=== PATIENT | female | born 1960 | race Caucasian/White ===

== ENCOUNTER 2020-08-08 10:45 | Outpatient (REF) | payer OTHER, SELFPAY ==
--- NOTE | 2020-08-08 10:53 | XR_ITS ---
EXAMINATION: XR SINUSES CLINICAL INFORMATION: Sinusitis COMPARISON: None TECHNIQUE: 4 views of the paranasal sinuses FINDINGS: The paranasal sinuses appear aerated without evidence of significant mucosal thickening or air-fluid levels. No bony destruction is seen. IMPRESSION: No evidence of acute sinusitis.
== END 2020-08-08 10:46 | disposition home or self-care (01) ==
LOC: HO.XRAY 10:45
PROVIDERS: PCP Physician Assistant; Visit Provider Otolaryngology
DX: J32.9 Chronic sinusitis, unspecified (principal)
CPT/HCPCS: 70220

== ENCOUNTER 2020-12-08 08:29 | Outpatient (REF) | payer OTHER, SELFPAY ==
[2020-12-08 10:29] LABS: Hematocrit 39.5 % (37-47); Hemoglobin 12.8 g/dl (12.0-16.0); Mean Corpuscular HGB Conc 32.4 g/dl (31.0-35.0); Mean Corpuscular Volume 89.4 fL (80-98); Mean Platelet Volume 10.6 fL (9.4-12.3); Platelet Count 259 X10*3/uL (160-400); Red Blood Count 4.42 X10*6/uL (4.20-5.50); Red Cell Distribution Width 12.9 % (11.0-16.0); White Blood Count 3.1 X10*3/uL (4.8-10.8)
[2020-12-08 11:05] LABS: Alanine Aminotransferase 23 U/L (0-31); Albumin Level 4.4 g/dL (3.5-5.0); Alkaline Phosphatase 78 U/L (39-117); Anion Gap 13 (12-20); Aspartate Amino Transferase 20 U/L (5-31); Bilirubin Total 0.8 mg/dL (0.0-1.0); Blood Urea Nitrogen 21 mg/dL (9-16); Calcium 9.4 mg/dL (8.4-10.2); Carbon Dioxide 28 mmol/L (22-29); Chloride 103 mmol/L (96-108); Cholesterol 270 mg/dL; Estimated Glomerular Filt Rate > 60; Glucose Fasting 79 mg/dL (60-99); HDL Cholesterol 90 mg/dL; LDL Cholesterol Calculated 168 mg/dl; Potassium 4.2 mmol/L (3.3-5.1); Sodium 140 mmol/L (135-145); Total Protein 6.6 g/dL (6.5-8.0); Triglycerides 61 mg/dL
[2020-12-08 11:12] LABS: TSH reflex Free T4 1.35 uIU/mL (0.32-4.0)
== END 2020-12-08 08:30 | disposition home or self-care (01) ==
LOC: HO.WFDLDS 08:29
PROVIDERS: Visit Provider Physician Assistant
DX: I10 Essential (primary) hypertension (principal); F33.1 Major depressive disorder, recurrent, moderate
CPT/HCPCS: 36415; 80053; 80061; 84443; 85027

== ENCOUNTER 2021-06-11 10:22 | Outpatient (REF) | payer OTHER, SELFPAY ==
[2021-06-11 13:30] LABS: Hematocrit 38.7 % (37-47); Hemoglobin 12.7 g/dl (12.0-16.0); Mean Corpuscular HGB Conc 32.8 g/dl (31.0-35.0); Mean Corpuscular Hemoglobin 29.1 pg (27.0-33.0); Mean Corpuscular Volume 88.6 fL (80-98); Mean Platelet Volume 10.3 fL (9.4-12.3); Platelet Count 263 X10*3/uL (160-400); Red Blood Count 4.37 X10*6/uL (4.20-5.50); Red Cell Distribution Width 12.5 % (11.0-16.0); White Blood Count 2.7 X10*3/uL (4.8-10.8)
[2021-06-11 13:55] LABS: Alanine Aminotransferase 24 U/L (0-31); Albumin Level 4.2 g/dL (3.5-5.0); Alkaline Phosphatase 71 U/L (39-117); Anion Gap 10 (12-20); Aspartate Amino Transferase 20 U/L (5-31); Bilirubin Total 1.3 mg/dL (0.0-1.0); Blood Urea Nitrogen 18 mg/dL (9-16); Calcium 9.5 mg/dL (8.4-10.2); Carbon Dioxide 29 mmol/L (22-29); Chloride 105 mmol/L (96-108); Cholesterol 222 mg/dL; Estimated Glomerular Filt Rate > 60; Glucose Fasting 89 mg/dL (60-99); HDL Cholesterol 71 mg/dL; LDL Cholesterol Calculated 141 mg/dl; Potassium 4.4 mmol/L (3.3-5.1); Sodium 140 mmol/L (135-145); Total Protein 6.3 g/dL (6.5-8.0); Triglycerides 51 mg/dL
== END 2021-06-11 10:23 | disposition home or self-care (01) ==
LOC: HO.WFDLDS 10:22
PROVIDERS: Visit Provider Physician Assistant
DX: E78.2 Mixed hyperlipidemia (principal); I10 Essential (primary) hypertension
CPT/HCPCS: 36415; 80053; 80061; 84443; 85027

== ENCOUNTER 2021-06-13 12:58 | Outpatient (REF) | payer OTHER, SELFPAY ==
[2021-06-13 18:58] LABS: Creatinine Urine 97.86 mg/dL; Microalbum/Creatinine Ratio Ur 11.2 ug/mg cr
== END 2021-06-13 12:59 | disposition home or self-care (01) ==
LOC: HO.WFDLDS 12:58
PROVIDERS: Visit Provider Physician Assistant
DX: I10 Essential (primary) hypertension (principal)
CPT/HCPCS: 82043

== ENCOUNTER 2021-07-06 10:15 | Outpatient (REF) | payer OTHER, SELFPAY ==
[2021-07-06 11:31] LABS: Hematocrit 39.3 % (37-47); Mean Corpuscular HGB Conc 33.1 g/dl (31.0-35.0); Mean Corpuscular Hemoglobin 29.5 pg (27.0-33.0); Mean Corpuscular Volume 89.1 fL (80-98); Mean Platelet Volume 10.8 fL (9.4-12.3); Platelet Count 254 X10*3/uL (160-400); Red Blood Count 4.41 X10*6/uL (4.20-5.50); Red Cell Distribution Width 12.7 % (11.0-16.0); White Blood Count 3.8 X10*3/uL (4.8-10.8)
== END 2021-07-06 10:16 | disposition home or self-care (01) ==
LOC: HO.WFDLDS 10:15
PROVIDERS: Visit Provider Physician Assistant
DX: D72.819 Decreased white blood cell count, unspecified (principal); I10 Essential (primary) hypertension
CPT/HCPCS: 36415; 85027

== ENCOUNTER 2021-11-06 14:16 | Outpatient (REF) | payer OTHER, SELFPAY ==
[2021-11-06 14:25] LABS: Appearance Urine CLEAR; Color Urine YELLOW; Glucose Urine UA NEG (NEG); Leukocyte Esterase Urine 1+ (NEG); Nitrite Urine NEG (NEG); Specific Gravity - Urine 1.015 (1.005-1.025); Urine Blood NEG (NEG); Urine Ketones NEG (NEG); Urine Protein NEG (NEG-TRACE)
[2021-11-06 14:36] LABS: RBC Urine 0 /HPF (0); Squamous Epithelial Cell Urine TRACE /LPF
[2021-11-06 14:37] LABS: Mucus Urine 1+ /LPF
== END 2021-11-06 14:17 | disposition home or self-care (01) ==
LOC: HO.LNP 14:16
PROVIDERS: Visit Provider Physician Assistant
DX: R30.0 Dysuria (principal)
CPT/HCPCS: 81001

== ENCOUNTER 2021-11-16 12:58 | Outpatient (REF) | payer OTHER, SELFPAY ==
[2021-11-16 13:50] LABS: Appearance Urine CLEAR; Color Urine YELLOW; Glucose Urine UA NEG (NEG); Leukocyte Esterase Urine 1+ (NEG); Nitrite Urine NEG (NEG); PH 5.5 (5.0-8.0); Specific Gravity - Urine 1.025 (1.005-1.025); UACC Culture Trigger YES; Urine Blood NEG (NEG); Urine Ketones NEG (NEG); Urine Protein NEG (NEG-TRACE)
[2021-11-16 14:31] LABS: Bacteria Urine TRACE /LPF; RBC Urine 0-2 /HPF (0); Squamous Epithelial Cell Urine 1+ /LPF; UACC CULT YES
== END 2021-11-16 12:59 | disposition home or self-care (01) ==
LOC: HO.WFDLDS 12:58
PROVIDERS: PCP Physician Assistant; Visit Provider Physician Assistant
DX: R30.0 Dysuria (principal)
CPT/HCPCS: 81001; 87086

== ENCOUNTER 2021-12-06 13:30 | Outpatient (REF) | payer OTHER, SELFPAY ==
--- NOTE | ~2021-12-06 | XR_ITS ---
EXAMINATION: XR CHEST CLINICAL INFORMATION: Cough. COMPARISON: None TECHNIQUE: 2 views of the chest were obtained. FINDINGS: The lungs are hyperinflated but clear of acute process. Heart size and pulmonary vascularity is normal. There is mild dextro scoliosis dorsal spine. XR/XR chest 2V IMPRESSION: Hyperinflated lungs without acute process
== END 2021-12-06 13:31 | disposition home or self-care (01) ==
LOC: HO.XRAY 13:30
PROVIDERS: PCP Physician Assistant; Visit Provider Physician Assistant
DX: R05.9 Cough, unspecified (principal)
CPT/HCPCS: 71046

== ENCOUNTER → 2021-12-17 08:58 | Outpatient (REF) | payer OTHER, SELFPAY ==
--- NOTE | 2021-12-17 09:01 | CA_ITS ---
Acquisition Time: 2021-12-17 09:08:44 Total Exercise Time: 00:09:30 Test Indications: PALPITATIONS SOB Medications: ALBUTEROL AMLODIPINE Protocol: LESTER Max HR: 160 BPM 101% of Pred: 157 BPM Max BP: 140/080 mmHG Max Work Load: 10.9 METS Exercise stress test with exercise 9 min 30 sec of Lester protocol, with mild sob, no chest discomfort, with isolated PAC, with normotensive response to exercise, without EKG changes meeting criteria for ischemia. Test reviewed with Dr Swann Referred By: Talha Lennon Overread By: MAURICE CHURCHILL
== END ==
LOC: HO.CARD 08:58
PROVIDERS: PCP Physician Assistant; Visit Provider Physician Assistant
DX: R06.02 Shortness of breath (principal); R00.2 Palpitations; Z79.899 Other long term (current) drug therapy
CPT/HCPCS: 93017

== ENCOUNTER 2022-01-07 08:06 | Outpatient (REF) | payer OTHER, SELFPAY ==
--- NOTE | 2022-01-07 13:46 | PFT_ITS ---
FLOWS: FEV1 138% of predicted at 2.95 L. FVC 135% of predicted at 3.77 L. FEV1 to FVC ratio of 0.78. No bronchodilator response. LUNG VOLUMES: Total lung capacity 136% of predicted at 6.19 L. Residual volume 122% of predicted at 2.32 L. Slow vital capacity 146% of predicted at 3.87 L. Expiratory reserve volume 233% of predicted at 1.54 L. Diffusion capacity is normal. IMPRESSION: No obstructive or restrictive ventilatory defect. No bronchodilator response. Increased total lung capacity suggests hyperinflation. Increased residual volume suggests air trapping. Jorge Alberto Meléndez MD AP/MODL / [id number]
== END 2022-01-07 08:07 | disposition home or self-care (01) ==
LOC: HO.RESP 08:06
PROVIDERS: PCP Physician Assistant; Visit Provider Physician Assistant
DX: R06.02 Shortness of breath (principal); R09.89 Other specified symptoms and signs involving the circulatory and respiratory systems
CPT/HCPCS: 94060; 94727; 94729

== ENCOUNTER 2022-01-28 12:43 | Outpatient (REF) | payer OTHER, SELFPAY ==
[2022-01-28 14:01] LABS: Appearance Urine CLEAR; Color Urine STRAW; Glucose Urine UA NEG (NEG); Leukocyte Esterase Urine 2+ (NEG); Nitrite Urine NEG (NEG); Specific Gravity - Urine <= 1.005 (1.005-1.025); UACC Culture Trigger YES; Urine Blood TRACE (NEG); Urine Ketones NEG (NEG); Urine Protein NEG (NEG-TRACE)
[2022-01-28 14:31] LABS: Bacteria Urine 1+ /LPF; Squamous Epithelial Cell Urine TRACE /LPF
== END 2022-01-28 12:44 | disposition home or self-care (01) ==
LOC: HO.WFDLNP 12:43
PROVIDERS: Visit Provider Physician Assistant
DX: R30.0 Dysuria (principal)
CPT/HCPCS: 81001; 81003; 87086; 87088; 87186

== ENCOUNTER 2022-03-06 09:25 | Outpatient (REF) | payer OTHER, SELFPAY ==
[2022-03-06 11:39] LABS: MANUAL DIFF FLAG NO
[2022-03-06 11:48] LABS: Basophils Percent Auto 1.1 % (0-2); Eosinophils Absolute Auto 0.1 X10*3/uL (0.0-0.4); Eosinophils Percent Auto 1.4 % (0-4); Hematocrit 40.1 % (37.0-47.0); Lymphocytes Absolute Auto 0.8 X10*3/uL (1.2-4.9); Lymphocytes Percent Auto 22.6 % (20-40); Mean Corpuscular HGB Conc 32.4 g/dl (31.0-35.0); Mean Corpuscular Hemoglobin 29.1 pg (27.0-33.0); Mean Corpuscular Volume 89.9 fL (80.0-98.0); Mean Platelet Volume 10.7 fL (9.4-12.3); Monocytes Absolute Auto 0.2 X10*3/uL (0.1-1.2); Monocytes Percent Auto 6.6 % (2-11); Neutrophils Absolute Auto 2.5 x10*3/uL (2.0-8.3); Neutrophils Percent Auto 68.3 % (45-73); Platelet Count 242 X10*3/uL (160-400); Red Blood Count 4.46 X10*6/uL (4.20-5.50); Red Cell Distribution Width 12.1 % (11.0-16.0); White Blood Count 3.6 X10*3/uL (4.8-10.8)
[2022-03-06 11:57] LABS: Alanine Aminotransferase 20 U/L (0-31); Albumin Level 4.3 g/dL (3.5-5.0); Alkaline Phosphatase 78 U/L (39-117); Aspartate Amino Transferase 17 U/L (5-31); Bilirubin Direct < 0.2 mg/dL (0.0-0.5); Bilirubin Total 0.4 mg/dL (0.0-1.0); Blood Urea Nitrogen 17 mg/dL (9-16); Estimated Glomerular Filt Rate > 60; Total Protein 6.4 g/dL (6.5-8.0)
== END 2022-03-06 09:26 | disposition home or self-care (01) ==
LOC: HO.WFDLDS 09:25
PROVIDERS: Visit Provider Physician Assistant
DX: G35 Multiple sclerosis (principal); Z79.899 Other long term (current) drug therapy
CPT/HCPCS: 36415; 80076; 82565; 84520; 85025

== ENCOUNTER 2022-12-02 09:42 | Outpatient (REF) | payer OTHER, SELFPAY ==
[2022-12-02 11:42] LABS: Hematocrit 39.8 % (37.0-47.0); Hemoglobin 12.9 g/dl (12.0-16.0); Mean Corpuscular HGB Conc 32.4 g/dl (31.0-35.0); Mean Corpuscular Hemoglobin 29.2 pg (27.0-33.0); Mean Platelet Volume 10.6 fL (9.4-12.3); Platelet Count 309 X10*3/uL (160-400); Red Blood Count 4.42 X10*6/uL (4.20-5.50); White Blood Count 6.3 X10*3/uL (4.8-10.8)
[2022-12-02 12:36] LABS: Alanine Aminotransferase 18 U/L (0-31); Albumin Level 4.6 g/dL (3.5-5.0); Alkaline Phosphatase 83 U/L (39-117); Anion Gap 15 (12-20); Aspartate Amino Transferase 17 U/L (5-31); Bilirubin Total 0.9 mg/dL (0.0-1.0); Blood Urea Nitrogen 18 mg/dL (9-16); Carbon Dioxide 27 mmol/L (22-29); Chloride 107 mmol/L (96-108); Cholesterol 257 mg/dL; Estimated Glomerular Filt Rate > 60; Glucose Fasting 90 mg/dL (60-99); HDL Cholesterol 101 mg/dL; LDL Cholesterol Calculated 144 mg/dl; Potassium 4.6 mmol/L (3.3-5.1); Sodium 144 mmol/L (135-145); TSH reflex Free T4 1.48 uIU/mL (0.32-4.0); Total Protein 6.8 g/dL (6.5-8.0); Triglycerides 64 mg/dL
[2022-12-02 14:14] LABS: Appearance Urine Clear; Color Urine Yellow; Glucose Urine UA Negative (Negative); Leukocyte Esterase Urine Small (1+) (Negative); Nitrite Urine Negative (Negative); PH 5.5 (5.0-9.0); UMIC TRIGGER UACC YES; Urine Blood Negative (Negative); Urine Ketones Negative (Negative); Urine Protein Negative (Neg-Trace)
[2022-12-02 14:31] LABS: Bacteria Urine None Seen (None Seen); Hyaline Casts Urine 0-2 /LPF (0-2); RBC Urine 0-2 /HPF (0-2); Squamous Epithelial Cell Urine 0-2 /HPF (0-2); UACC Culture Trigger YES; WBC Urine 0-5 /HPF (0-5)
== END 2022-12-02 09:43 | disposition home or self-care (01) ==
LOC: HO.WFDLDS 09:42
PROVIDERS: Nurse Practitioner Family; Visit Provider Physician Assistant
DX: I10 Essential (primary) hypertension (principal); E78.2 Mixed hyperlipidemia; R82.90 Unspecified abnormal findings in urine
CPT/HCPCS: 36415; 80053; 80061; 81001; 84443; 85027; 87086

== ENCOUNTER 2023-05-15 09:20 | Outpatient (AMB) | payer MEDICARE, SELFPAY ==
--- NOTE | 2023-05-15 09:21 | A.OFFPC_ITS ---
Intake Visit Reasons: f/u ADD Allergies bee pollen Allergy (Intermediate, Verified 05/15/23 09:42) hives, itching lisinopril Allergy (Unknown, Verified 05/15/23 09:42) Cough SEASONAL ALLERGIES Allergy (Mild, Uncoded 05/15/23 09:21) ITCHY EYES Medication List - Last Reconciled 05/15/23 by Talha Lennon PA-C albuterol sulfate 90 mcg/actuation 2 puffs inhalation Q6H PRN amlodipine 10 mg PO DAILY baclofen 10 mg PO BEDTIME 14 days cholecalciferol (vitamin D3) 25 mcg PO DAILY clonidine HCl 0.1 mg PO BID dextroamphetamine-amphetamine 5 mg 1 tab PO DAILY 30 days diphenhydramine HCl (Benadryl Allergy) 50 mg (2 x 25 mg) PO Q6H PRN 10 days epinephrine (EpiPen 2-Sherman) 0.3 mg (0.3 mL) IM Q10M PRN 30 days fluoxetine 40 mg PO DAILY gabapentin 100 mg PO TID meloxicam 15 mg PO DAILY 90 days ofatumumab (Kesimpta Pen) mg subcut omega 4-smp-anf-fish oil 100-160-1,000 mg caps PO pseudoephedrine HCl 60 mg PO Q6H PRN trazodone 100 mg PO DAILY 90 days Tobacco use date assessed: 02/13/23 Fall risk assessment: No Falls in past year Last assessed Fall Risk: 05/15/23 Dental Screening Dental Screen Date: 05/15/23 Did you have a dental visit in the last 12 months?: Yes Did you have a dental problem in the last 6 months where you did not have access to dental care?: No Was dental information given to patient?: Patient has dentist HPI f/u ADD HPI Details Patient is a 63-year-old female being evaluated today via telephone. Patient has a past medical history significant for major depressive disorder, anxiety, ADHD and ms. Concerns--> reports having a 2 month history of constipation. Reports it started with very loose stool and nausea for a week and transition into constipation. Has been able to take prune juice which has helped produce bowel movements. She reports she has not had a bowel movement in 4 days. She finds this ought and would like to be checked for colon cancer. Most recent colonoscopy done in 2018 that did find a polyp tubular adenoma needs repeat colonoscopy anyways. Otherwise denies any abdominal pain, night sweats her weight loss. Major depressive disorder: Has restarted SSRI therapy as she has been having more depressed mood which has drastically reduced her depressed mood. Use on fluoxetine 40 mg daily. ADD: She has been started on low-dose Adderall 5 mg to take as needed to help her attention and focus on her job tasks which has drastically improved her attention focus. She denies any side effects from the medication. [facility] Medical History Multiple sclerosis Surgical History History of cosmetic surgery History of tonsillectomy History of torn meniscus of right knee History of total knee replacement (TKR) History of wisdom tooth extraction Family History Father CAD (coronary artery disease) Mother Diabetes Hypertension Cancer Brother Multiple sclerosis Social History Housing: House Alcohol intake: current Alcohol intake frequency: a few times a month Patient Tobacco Use Status: Former Tobacco user Quit Date: 1989 Tobacco use type: Cigarette e-Cigarette/Vaping Use: Never Used Second Hand Smoke Exposure: No service: No Current occupational status: employed Current occupation: [employer]. Current occupational exposures/hazards: No Cognitive needs: No Hearing needs: No Vision needs: Yes (glasses ) Questionnaire PHQ-9 Over the last 2 weeks, how often have you been bothered by any of the following problems? 1. Little interest or pleasure in doing things: not at all 2. Feeling down, depressed, or hopeless: not at all 3. Trouble falling or staying asleep, or sleeping too much: not at all 4. Feeling tired or having little energy: not at all 5. Poor appetite or overeating: not at all 6. Feeling bad about yourself - or that you are a failure or have let yourself or your family down: not at all 7. Trouble concentrating on things, such as reading the newspaper or watching television: not at all 8. Moving or speaking so slowly that other people could have noticed. Or the o pposite - being so fidgety or restless that you have been moving around a lot more than usual: not at all 9. Thoughts that you would be better off or of hurting yourself in some way: not at all Total score: 0 Depression Screening Interpretation: Negative 55901 - PHQ-9 Billing: Yes Source: Developed by Drs. Sarkis Guerrero, Wayne Tang and colleagues, with an educational ivory from [employer]. Thrive Questionnaire Date Thrive assessed: 05/15/23 I am a: Patient What is your living situation today?: I have a steady place to live Within the past 12 months, did the food you bought not last and you didn't have the money to get more?: Never true Within the past 12 months, did you worry whether your food would run out before you got money to buy more?: Never true Do you have trouble paying for medicines?: No Do you have trouble getting transportation to medical appointments?: No Do you have trouble paying your heating and electricity bill?: No Do you have trouble taking care of your child, family member or friend?: No Do you have trouble with day-to-day activities such as bathing, preparing meals, shopping, managing finances, etc.?: No Are you currently unemployed and looking for a job?: No Are you interested in more education?: No Currently or been in a relationship where the following occur: no concerns reported AUDIT C Alcohol Use Questionnaire (AUDIT-C) 1. How often do you have a drink containing alcohol?: 2-4 times a month 2. How many drinks containing alcohol do you have on a typical day when you are drinking?: 1 or 2 3. How often do you have six or more drinks on one occasion?: Never Total Score: 2 RED-7 AMB Questionnaire RED-7 Date ERD - 7 assessed: 02/13/23 Source: Developed by Drs. Sarkis Guerrero, Wayne Tang and colleagues, with an educational ivory from [employer]. Review of Systems Const Denies headache(s) Eyes Denies loss of vision ENT Denies vertigo, Denies dizziness, Denies headache(s) and Denies sore throat Card Denies chest pain, Denies leg edema and Denies lightheadedness Resp Denies cough, Denies hemoptysis and Denies wheezing GI Denies abdominal pain, Denies melena, Reports constipation, Denies diarrhea and Denies vomiting Denies urinary frequency, Denies dysuria and Denies urinary urgency Musc Denies arthralgias, Denies joint swelling, Denies numbness and Denies tingling Neuro Denies behavioral changes, Denies vertigo, Denies dizziness, Denies headache(s), Denies loss of vision, Denies memory loss, Denies numbness and Denies tingling Psych Denies anxiety, Denies behavioral changes, Denies depression, Denies memory loss and Denies panic attacks Magnus/Lymph Denies easy bleeding and Denies easy bruising Aller/Immun Denies wheezing Physical exam (Primary Care) Tobacco/Smoking Status: Tobacco use Status Tobacco use date assessed 02/13/23 05/15/23 09:23 Patient Tobacco Use Status Former Tobacco user 05/15/23 09:23 Tobacco use type Cigarette 05/15/23 09:23 e-Cigarette/Vaping Use Never Used 05/15/23 09:23 PHQ-9: PHQ-9 Score PHQ-9: Total score 0 05/15/23 09:23 Depression Screening Interpretation: Negative Thrive Assessment: Date of Thrive Assessment Date Thrive assessed 05/15/23 05/15/23 09:23 Currently or been in a relationship where the following occur: no concerns reported Telehealth Telehealth Location of provider rendering services: practice address Location of patient: address on file Patient Identification confirmed using: Name, : Yes Telehealth method: voice only (Iphone) Patient verbally consented to treatment: Yes Patient verbally consented to billing insurance company: Yes Patient informed of any privacy concerns related to visit: Yes Minutes spent on Phone/Video with Pt.: 15 Assessment and Plan Assessment & Plan (1) ADD (attention deficit disorder): Code(s): F98.8 - Other specified behavioral and emotional disorders with onset usually occurring in childhood and adolescence Qualifiers: Hyperactivity presence: present Attention deficit-hyperactivity disorder type: predominantly inattentive Qualified Code(s): 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 She denies any side effect of sleeping issues or appetite suppressing. (2) MDD (major depressive disorder), recurrent episode, moderate: Code(s): F33.1 - Major depressive disorder, recurrent, moderate Plan: Again patient restarted SSRI therapy which has been very effective for her. (3) RED (generalized anxiety disorder): Code(s): F41.1 - Generalized anxiety disorder Plan: Has restarted SSRI therapy which has been effective for her. Started fluoxetine 40 mg. (4) Tubular adenoma of colon: Code(s): D12.6 - Benign neoplasm of colon, unspecified (5) Constipation: Code(s): K59.00 - Constipation, unspecified Qualifiers: Constipation type: chronic idiopathic constipation Qualified Code(s): K59.04 - Chronic idiopathic constipation Plan: Patient reporting constipation over the last 2 months, has been to treated with prune juice. She is concerned about cancer would like a colonoscopy. Last colonoscopy done at [place] in 2018 and polyp found. Is due for repeat colonoscopy thus refer to GI here in [place]. Advised on use of stool softener and probiotic. Orders: Orders XR abdomen 3V Today K59.04 - Chronic idiopathic constipation Referrals Gastroenterology Referral D12.6 - Benign neoplasm of colon, unspecified Medications: New fluoxetine 40 mg PO DAILY 90 days 90 caps 1RF F33.1 - Major depressive disorder, recurrent, moderate Refilled baclofen 10 mg PO BEDTIME 14 days 14 tabs 0RF M54.5 - Low back pain Coding Level of Care Code Tele Est Pt Level 4 (05460) Diagnoses ADD (attention deficit disorder) F90.0 Hyperactivity presence: present Attention deficit-hyperactivity disorder type: predominantly inattentive MDD (major depressive disorder), recurrent episode, moderate F33.1 RED (generalized anxiety disorder) F41.1 Tubular adenoma of colon D12.6 Constipation K59.04 Constipation type: chronic idiopathic constipation
== END 2023-05-15 10:30 | disposition home or self-care (01) ==
LOC: HO.HMGH 09:20
PROVIDERS: PCP Physician Assistant; Visit Provider Physician Assistant
DX: F90.0 Attention-deficit hyperactivity disorder, predominantly inattentive type (principal); F33.1 Major depressive disorder, recurrent, moderate; F41.1 Generalized anxiety disorder; D12.6 Benign neoplasm of colon, unspecified; K59.04 Chronic idiopathic constipation
CPT/HCPCS: 99442

== ENCOUNTER 2023-05-16 15:00 | Outpatient (REF) | payer MEDICARE, SELFPAY ==
--- NOTE | ~2023-05-16 | XR_ITS ---
EXAMINATION: XR ABDOMEN COMPLETE CLINICAL INDICATION: Chronic hepatic constipation COMPARISON: None available. TECHNIQUE: 2 views of the abdomen. FINDINGS: The bowel gas pattern is normal with no evidence of ileus or obstruction. No unusual soft there is scattered stool and gas seen throughout the colon without any distention. The small bowel loops are normal. There are no radiopaque calculi. No gross bony abnormality seen. XR/XR abdomen min 2V IMPRESSION: Unremarkable abdomen exam.
== END 2023-05-16 15:01 | disposition home or self-care (01) ==
LOC: HO.XRAY 15:00
PROVIDERS: PCP Physician Assistant; Visit Provider Physician Assistant
DX: K59.04 Chronic idiopathic constipation (principal)
CPT/HCPCS: 74019

== ENCOUNTER 2023-05-19 07:48 | Outpatient (REF) | payer MEDICARE, SELFPAY ==
[2023-05-19 12:07] LABS: Hemoglobin 12.9 g/dl (12.0-16.0); Mean Corpuscular HGB Conc 31.5 g/dl (31.0-35.0); Mean Corpuscular Hemoglobin 28.6 pg (27.0-33.0); Mean Corpuscular Volume 90.9 fL (80.0-98.0); Mean Platelet Volume 10.7 fL (9.4-12.3); Platelet Count 273 X10*3/uL (160-400); Red Blood Count 4.51 X10*6/uL (4.20-5.50); Red Cell Distribution Width 12.7 % (11.0-16.0); White Blood Count 3.8 X10*3/uL (4.8-10.8)
[2023-05-19 12:28] LABS: Alanine Aminotransferase 19 U/L (0-31); Albumin Level 4.1 g/dL (3.5-5.0); Alkaline Phosphatase 66 U/L (39-117); Anion Gap 14 (12-20); Aspartate Amino Transferase 19 U/L (5-31); Bilirubin Total 0.5 mg/dL (0.0-1.0); Blood Urea Nitrogen 15 mg/dL (9-16); Calcium 9.4 mg/dL (8.4-10.2); Carbon Dioxide 23 mmol/L (22-29); Chloride 107 mmol/L (96-108); Cholesterol 215 mg/dL; Estimated Glomerular Filt Rate > 60; Glucose Fasting 90 mg/dL (60-99); HDL Cholesterol 75 mg/dL; LDL Cholesterol Calculated 129 mg/dl; Potassium 4.2 mmol/L (3.3-5.1); Sodium 140 mmol/L (135-145); Total Protein 6.3 g/dL (6.5-8.0); Triglycerides 55 mg/dL
== END 2023-05-19 07:49 | disposition home or self-care (01) ==
LOC: HO.WFDLDS 07:48
PROVIDERS: Visit Provider Physician Assistant
DX: E78.2 Mixed hyperlipidemia (principal); I10 Essential (primary) hypertension
CPT/HCPCS: 36415; 80053; 80061; 85027

== ENCOUNTER 2023-05-21 10:48 | Emergency (ER) | payer MEDICARE, SELFPAY ==
--- NOTE | ~2023-05-21 | XR_ITS ---
EXAMINATION: XR ABDOMEN KUB CLINICAL INDICATION: Constipation. COMPARISON: Abdominal radiographs dated 05/08/2023. TECHNIQUE: AP view of the abdomen. FINDINGS: There is a nonobstructive bowel gas pattern. Mild to moderate stool seen within the colon distally to the rectum. No abnormal calcifications are seen. Moderate bilateral facet arthropathy is noted at L5-S1. XR/XR KUB IMPRESSION: 1. Nonobstructive bowel gas pattern. Mild to moderate colonic stool burden. 2. L5-S1 moderate bilateral facet arthropathy.
[2023-05-21 11:11] VITALS: BP 159/69; PULSE 65; RESP 17; TEMP 36.2; O2SAT 98; BMI 22.2
--- NOTE | 2023-05-21 11:11 | ED.GENADULT ---
HPI - General Adult General Chief complaint: General Medical Stated complaint: constipation Time Seen by Provider: 05/21/23 17:31 Source: patient Mode of arrival: ambulatory Limitations: no limitations History of Present Illness HPI narrative: Patient is a 63-year-old female who presents emergency department for evaluation of constipation. She reports her last significant bowel movement to event 2.5 weeks ago. She reports a small bowel movement yesterday that was ?pencil thin?. She was seen by her primary care provider 1 week ago for the same complaint. She took a single dose of MiraLax approximately 1 week ago, and a stool softener 1 or 2 days last week. Has not been using any OTC laxatives routinely. She is awaiting referral for a colonoscopy, last was done approximately 5 years ago which revealed a polyp. Denies any personal or family history of colon cancer. She denies associated fever, abdominal pain, nausea, vomiting, genitourinary symptoms. She is able to tolerate oral intake without complication. Denies any bloody or dark stools. Related Data Home Medications Medication Instructions Recorded Confirmed cholecalciferol (vitamin D3) 25 25 mcg PO DAILY 11/14/20 05/15/23 mcg (1,000 unit) capsule gabapentin 100 mg capsule 100 mg PO TID 11/14/20 05/15/23 omega 9-vof-hfp-fish oil 100 cap PO 05/24/21 05/15/23 mg-160 mg-1,000 mg capsule ofatumumab 20 mg/0.4 mL mg subcut 11/27/21 05/15/23 subcutaneous pen injector (Kesimpta Pen) Previous Rx's Medication Instructions Recorded diphenhydramine HCl 25 mg tablet 50 mg PO Q6H PRN allergy symptoms 07/26/21 (Benadryl Allergy) 10 days #40 tabs pseudoephedrine HCl 60 mg tablet 60 mg PO Q6H PRN nasal congestion 01/07/22 #20 tabs albuterol sulfate 90 mcg/actuation 2 puff inhalation Q6H PRN 02/08/22 aerosol inhaler shortness of breath or wheezing #8.5 grams amlodipine 10 mg tablet 10 mg PO DAILY #90 tabs 06/28/22 epinephrine 0.3 mg/0.3 mL 0.3 mg (0.3 mL) IM Q10M PRN 09/12/22 injection, auto-injector (EpiPen anaphylaxis 30 days #2 ea 2-Sherman) meloxicam 15 mg tablet 15 mg PO DAILY 90 days #90 tabs 12/02/22 trazodone 100 mg tablet 100 mg PO DAILY 90 days #90 tabs 12/30/22 clonidine HCl 0.1 mg tablet 0.1 mg PO BID #180 tabs 02/13/23 dextroamphetamine-amphetamine 5 mg 1 tab PO DAILY attention deficit 02/13/23 tablet hyperactivity disorder 30 days #30 tabs baclofen 10 mg tablet 10 mg PO BEDTIME 14 days #14 tabs 05/15/23 fluoxetine 40 mg capsule 40 mg PO DAILY 90 days #90 caps 05/15/23 lactulose 10 gram/15 mL (15 mL) 10 g (15 mL) PO DAILY PRN 05/21/23 oral solution constipation #600 mL Allergies Allergy/AdvReac Type Severity Reaction Status Date / Time bee pollen Allergy Intermediate hives, Verified 05/15/23 09:42 itching lisinopril Allergy Unknown Cough Verified 05/15/23 09:42 SEASONAL ALLERGIES Allergy Mild ITCHY EYES Uncoded 05/15/23 09:21 Review of Systems Review of Systems: Constitutional: No weight loss, fever, chills, weakness or fatigue. Skin: No rash or itching. Cardiovascular: No chest pain, chest pressure or chest discomfort. No palpitations or pedal edema. Respiratory: No shortness of breath, cough or sputum production. Gastrointestinal: No anorexia, nausea, vomiting or diarrhea. No abdominal pain or blood in stool. Positive constipation Genitourinary: No burning micturition. No urinary frequency or incontinence. Musculoskeletal: No muscle pain, back pain, joint pain or stiffness. Psychiatric: No depression or anxiety. Yes all other systems are reviewed and are negative [facility] Past Medical History Attestation statement: The following information was validated with the patient. Source: old records reviewed Medical History Multiple sclerosis Surgical History History of cosmetic surgery History of tonsillectomy History of torn meniscus of right knee History of total knee replacement (TKR) History of wisdom tooth extraction Family History Family History Father CAD (coronary artery disease) Mother Diabetes Hypertension Cancer Brother Multiple sclerosis Social History Social History Housing: House Alcohol intake: current Alcohol intake frequency: a few times a month Patient Tobacco Use Status: Former Tobacco user Quit Date: 1989 Tobacco use type: Cigarette e-Cigarette/Vaping Use: Never Used Second Hand Smoke Exposure: No Advance Directives: No Advance Directives Information Provided: No service: No Current occupational status: employed Current occupation: [employer]. Current occupational exposures/hazards: No Cognitive needs: No Hearing needs: No Vision needs: Yes (glasses ) Physical Exam ED Vital Signs: Vital Signs - 24 hr 05/21/23 11:11 Temperature 97.2 F Pulse Rate 65 Respiratory Rate 17 Blood Pressure 159/69 H Pulse Oximetry 98 Oxygen Delivery Method Room Air BMI result Body Mass Index 22.2 Appearance: Alert.?Oriented to person, place and time. No acute distress.?Normal affect. Eyes: Pupils equal, round and reactive to light.? ENT: Pharynx normal.?? Neck: Normal inspection.? Neck supple.?? CVS: Heart sounds normal. Normal heart rate and rhythm.? Pulses normal.?? Respiratory: No respiratory distress.? Lung sounds clear to auscultation bilaterally?? Abdomen: Soft and non-tender. Normoactive bowel sounds. No pulsatile mass.?? Skin: Skin warm and dry.? Normal skin color.? Extremities: No lower extremity edema.? Neuro: Moves all extremities spontaneously. Sensation intact bilaterally. No focal neuro deficits. Ambulates with normal steady gait. Course Course Course Narrative: This is an RME: Additional HPI, ROS, PE not included below will be deferred to primary provider. This is a 23-lejp-sne-female, hx of major depressive disorder, anxiety, ADHD and ms, presenting to the emergency department with complaints of constipation, last bowel movement was yesterday but was pencil thin . She states that over the last 2.5 weeks, she has been constipated and has not had a normal bowel movement. She has tried OTC constipation medications without relief. No fevers, abdominal pain, nausea, or vomiting. She is eating without difficulty. Plan: Labs, KUB xray Medical Decision Making Medical Decision Making MDM Narrative: Patient is a 63-year-old female with past medical history of multiple sclerosis who presents emergency department for evaluation of constipation as per HPI. At the time of my examination she is overall well-appearing. Abdominal examination is benign. There is no rigidity, guarding, distention. She is afebrile without tachycardia. Declined a rectal examination. Inconsistent use of OTC laxatives. Pending repeat colonoscopy with her primary care provider. Reviewed KUB XR obtained from [facility] medical examination provider, which reveals a nonobstructive bowel gas pattern and mild to moderate colonic stool burden. Clinically, I have a low suspicion for bowel obstruction, diverticulitis, appendicitis, colitis, inflammatory bowel disease. Discussed these findings with patient. Advised high-fiber diet, lactulose as prescribed and outpatient follow-up with her primary care provider. Reviewed worrisome signs and symptoms that would warrant re-evaluation in the emergency department. All questions answered. Stable for discharge. Differential Diagnosis Differential Diagnoses: The differential diagnosis associated with the presentation includes (As noted above) Lab Data [facility] Lab Attestation statement: I reviewed the patient's lab results. (CBC and CMP are within normal limits. Urinalysis is without evidence of urinary tract infection.) 05/21/23 11:26 05/21/23 11:26 Labs: Lab Results 05/21/23 05/21/23 05/21/23 Range/Units 11:26 11:26 11:26 WBC 4.9 (4.8-10.8) X10*3/uL RBC 4.55 (4.20-5.50) X10*6/uL Hgb 13.2 (12.0-16.0) g/dl Hct 40.1 (37.0-47.0) % MCV 88.1 (80.0-98.0) fL MCH 29.0 (27.0-33.0) pg MCHC 32.9 (31.0-35.0) g/dl RDW 12.5 (11.0-16.0) % Plt Count 261 (160-400) X10*3/uL MPV 10.3 (9.4-12.3) fL Immature Gran % (Auto) 0.2 (0.0-0.4) % Neut % (Auto) 64.7 (45-73) % Lymph % (Auto) 24.7 (20-40) % [place] % (Auto) 8.4 (2-11) % Eos % (Auto) 1.2 (0-4) % Baso % (Auto) 0.8 (0-2) % Lymph # (Auto) 1.2 (1.2-4.9) X10*3/uL [place] # (Auto) 0.4 (0.1-1.2) X10*3/uL Eos # (Auto) 0.1 (0.0-0.4) X10*3/uL Baso # (Auto) 0.0 (0.0-0.2) X10*3/uL Abs Immat Gran (auto) 0.01 (0.00-0.03) X10*3/uL Absolute Neuts (auto) 3.2 (2.0-8.3) x10*3/uL Absolute Nucleated RBC 0.000 (0.0-0.012) X10*3/uL Nucleated RBC % (auto) 0.0 (0.0-0.2) /100WBC Sodium 141 (135-145) mmol/L Potassium 4.2 (3.3-5.1) mmol/L Chloride 106 (96-108) mmol/L Carbon Dioxide 24 (22-29) mmol/L Anion Gap 15 (12-20) BUN 13 (9-16) mg/dL Creatinine 0.73 (0.5-1.4) mg/dL Estim Creat Clear Calc 55.2 Estimated GFR > 60 Random Glucose 78 (60-115) mg/dL Calcium 9.6 (8.4-10.2) mg/dL Total Bilirubin 0.4 (0.0-1.0) mg/dL Direct Bilirubin 0.2 (0.0-0.5) mg/dL AST 21 (5-31) U/L ALT 18 (0-31) U/L Alkaline Phosphatase 84 (39-117) U/L Total Protein 6.9 (6.5-8.0) g/dL Albumin 4.4 (3.5-5.0) g/dL Urine Color Yellow Urine Appearance Clear Urine pH 6.0 (5.0-9.0) Ur Specific [place] 1.015 (1.005-1.025) Urine Protein Negative (Neg-Trace) mg/dL Urine Glucose (UA) Negative (Negative) mg/dL Urine Ketones Negative (Negative) mg/dL Urine Blood Negative (Negative) Urine Nitrite Negative (Negative) Ur Leukocyte Esterase Moderate (2+) H (Negative) Urine RBC 0-2 (0-2) /HPF Urine WBC 11-20 H (0-5) /HPF Ur Squamous Epith Cells 0-2 (0-2) /HPF Urine Bacteria None Seen (None Seen) Hyaline Casts 0-2 (0-2) /LPF Independent Interpretation I performed an independent interpretation of an: Plain X-Ray (I personally interpreted XR and agree with radiologist impression) Radiology Impression Discussion of test interpretation with radiology: I have reviewed the radiologist's reading. Radiologist Impression: XR/XR KUB IMPRESSION: 1.? Nonobstructive bowel gas pattern. Mild to moderate colonic stool burden. 2.? L5-S1 moderate bilateral facet arthropathy. External Record Review External record reviewed: Outpatient record (Primary care note) Tests considered The following testing was considered but not selected: Considered CT of the abdomen and pelvis for evaluation of acute intra-abdominal pathology, seen Jahaira of above, CT imaging deferred. Prescription Management I considered prescription management with: Other (Lactulose) Discharge Plan Discharge Clinical Impression: Constipation Patient Disposition: Home, Self-Care Instructions: Constipation (ED), High Fiber Diet (ED) Additional Instructions: Follow instructions regarding high-fiber diet. Take lactulose 10 g/15 mL or constipation. If no relief, you may take an additional 10 g/15 mL for a total of 20 g daily. Discontinue use if you experience diarrhea Follow-up with your primary care provider. Return back to emergency department any new or worsening symptoms or concerns. Prescriptions: New lactulose 10 gram/15 mL (15 mL) solution 10 g PO DAILY PRN (Reason: constipation) Qty: 600 0RF No Action albuterol sulfate 90 mcg/actuation HFA aerosol inhaler 2 puff inhalation Q6H PRN (Reason: shortness of breath or wheezing) Qty: 8.5 1RF amlodipine 10 mg tablet 10 mg PO DAILY Qty: 90 2RF epinephrine [EpiPen 2-Sherman] 0.3 mg/0.3 mL auto-injector 0.3 mg IM Q10M PRN (Reason: anaphylaxis) 30 Days Qty: 2 1RF Rx Instructions: for 2 doses. meloxicam 15 mg tablet 15 mg PO DAILY 90 Days Qty: 90 1RF trazodone 100 mg tablet 100 mg PO DAILY 90 Days Qty: 90 2RF gabapentin 100 mg capsule 100 mg PO TID cholecalciferol (vitamin D3) 25 mcg (1,000 unit) capsule 25 mcg PO DAILY omega 4-rmi-iav-fish oil 100-160-1,000 mg capsule PO Kesimpta Pen 20 mg/0.4 mL pen injector subcut pseudoephedrine HCl 60 mg tablet 60 mg PO Q6H PRN (Reason: nasal congestion) Qty: 20 0RF Rx Instructions: DNExceed 4 doses/24h diphenhydramine HCl [Benadryl Allergy] 25 mg tablet 50 mg PO Q6H PRN (Reason: allergy symptoms) 10 Days Qty: 40 0RF clonidine HCl 0.1 mg tablet 0.1 mg PO BID Qty: 180 2RF dextroamphetamine-amphetamine 5 mg tablet 1 tab PO DAILY 30 Days Qty: 30 0RF fluoxetine 40 mg capsule 40 mg PO DAILY 90 Days Qty: 90 1RF baclofen 10 mg tablet 10 mg PO BEDTIME 14 Days Qty: 14 0RF Referrals: Talha Lennon PA-C [Primary Care Provider] -
[2023-05-21 11:31] LABS: MANUAL DIFF FLAG NO
[2023-05-21 11:36] LABS: Basophils Percent Auto 0.8 % (0-2); Eosinophils Absolute Auto 0.1 X10*3/uL (0.0-0.4); Eosinophils Percent Auto 1.2 % (0-4); Hematocrit 40.1 % (37.0-47.0); Hemoglobin 13.2 g/dl (12.0-16.0); Imm Gran Abs Auto 0.01 X10*3/uL (0.00-0.03); Imm Gran Pct Auto 0.2 % (0.0-0.4); Lymphocytes Absolute Auto 1.2 X10*3/uL (1.2-4.9); Lymphocytes Percent Auto 24.7 % (20-40); Mean Corpuscular HGB Conc 32.9 g/dl (31.0-35.0); Mean Corpuscular Volume 88.1 fL (80.0-98.0); Mean Platelet Volume 10.3 fL (9.4-12.3); Monocytes Absolute Auto 0.4 X10*3/uL (0.1-1.2); Monocytes Percent Auto 8.4 % (2-11); Neutrophils Absolute Auto 3.2 x10*3/uL (2.0-8.3); Neutrophils Percent Auto 64.7 % (45-73); Platelet Count 261 X10*3/uL (160-400); Red Blood Count 4.55 X10*6/uL (4.20-5.50); Red Cell Distribution Width 12.5 % (11.0-16.0); White Blood Count 4.9 X10*3/uL (4.8-10.8)
[2023-05-21 11:38] LABS: Appearance Urine Clear; Color Urine Yellow; Glucose Urine UA Negative (Negative); Leukocyte Esterase Urine Moderate (2+) (Negative); Nitrite Urine Negative (Negative); Specific Gravity - Urine 1.015 (1.005-1.025); UMIC TRIGGER UACC YES; Urine Blood Negative (Negative); Urine Ketones Negative (Negative); Urine Protein Negative (Neg-Trace)
[2023-05-21 11:41] LABS: Bacteria Urine None Seen (None Seen); Hyaline Casts Urine 0-2 /LPF (0-2); RBC Urine 0-2 /HPF (0-2); Squamous Epithelial Cell Urine 0-2 /HPF (0-2); UACC Culture Trigger YES
[2023-05-21 11:57] LABS: Alanine Aminotransferase 18 U/L (0-31); Albumin Level 4.4 g/dL (3.5-5.0); Alkaline Phosphatase 84 U/L (39-117); Anion Gap 15 (12-20); Aspartate Amino Transferase 21 U/L (5-31); Bilirubin Direct 0.2 mg/dL (0.0-0.5); Bilirubin Total 0.4 mg/dL (0.0-1.0); Blood Urea Nitrogen 13 mg/dL (9-16); Calcium 9.6 mg/dL (8.4-10.2); Carbon Dioxide 24 mmol/L (22-29); Chloride 106 mmol/L (96-108); Creatinine Clr Calc Pharmacy 55.2; Estimated Glomerular Filt Rate > 60; Glucose Random 78 mg/dL (60-115); Potassium 4.2 mmol/L (3.3-5.1); Sodium 141 mmol/L (135-145); Total Protein 6.9 g/dL (6.5-8.0)
[2023-05-21 19:05] VITALS: BP 141/71; PULSE 65; RESP 18; O2SAT 96
== END 2023-05-21 19:11 | disposition home or self-care (01) ==
PROVIDERS: Physician Assistant Medical; Emergency Provider Emergency Medicine Emergency Medical Services; PCP Physician Assistant
DX: K59.00 Constipation, unspecified (principal); Z79.899 Other long term (current) drug therapy
CPT/HCPCS: 36415; 74018; 80048; 80076; 81001; 85025; 87086; 99283; 99284

== ENCOUNTER 2023-06-24 08:29 | Outpatient (AMB) | payer MEDICARE, SELFPAY ==
--- NOTE | 2023-06-24 08:31 | MHC.OFFVIS ---
Intake Vital Signs 06/24/23 08:36 Height 5 ft Weight 112 lb BMI 21.9 BP 108/49 L Blood Pressure Location Lt brachial Position Sitting Respiration 15 Pulse 65 Intake Visit Reasons: Constipation Intake Note: Mew consult for Constipation. Patient cc: BM change in form, size and color, and Constipation on and off. Clerical Transcriber Required: No Accompanied by: Self / Same As Patient Allergies bee pollen Allergy (Intermediate, Verified 06/24/23 08:35) hives, itching lisinopril Allergy (Unknown, Verified 06/24/23 08:35) Cough SEASONAL ALLERGIES Allergy (Mild, Uncoded 05/15/23 09:21) ITCHY EYES Medication List - Last Reconciled 06/24/23 by Breonna Yanez PA-C albuterol sulfate 90 mcg/actuation 2 puffs inhalation Q6H PRN amlodipine 10 mg PO DAILY baclofen 10 mg PO BEDTIME 14 days cholecalciferol (vitamin D3) 25 mcg PO DAILY clonidine HCl 0.1 mg PO BID dextroamphetamine-amphetamine 5 mg 1 tab PO DAILY 30 days diphenhydramine HCl (Benadryl Allergy) 50 mg (2 x 25 mg) PO Q6H PRN 10 days epinephrine (EpiPen 2-Sherman) 0.3 mg (0.3 mL) IM Q10M PRN 30 days fluoxetine 40 mg PO DAILY 90 days gabapentin 100 mg PO TID meloxicam 15 mg PO DAILY 90 days ofatumumab (Kesimpta Pen) mg subcut omega 4-ylm-dwj-fish oil 100-160-1,000 mg caps PO pseudoephedrine HCl 60 mg PO Q6H PRN trazodone 100 mg PO DAILY 90 days HPI HPI Comments History of Present Illness Details A 63 y/o female MS- with ADHD- hx colon polyp 2018- Elvia- due for repeat- Constipation--- has subsided- went to ED- was following a bowel regimen- that worked well. She has daily soft BM- needs no added supplements- Eats well Drinks socially- No Fam hx colon cancer No N/V/D-abdominal pain, fever or chills PFSH Medical History Multiple sclerosis Surgical History History of cosmetic surgery History of tonsillectomy History of torn meniscus of right knee History of total knee replacement (TKR) History of wisdom tooth extraction Family History Father CAD (coronary artery disease) Mother Diabetes Hypertension Cancer Brother Multiple sclerosis Social History Housing: House Alcohol intake: never Patient Tobacco Use Status: Former Tobacco user Quit Date: 1989 Tobacco use type: Cigarette e-Cigarette/Vaping Use: Never Used Second Hand Smoke Exposure: No service: No Current occupational status: employed Current occupation: [employer] Current occupational exposures/hazards: No Cognitive needs: No Hearing needs: No Vision needs: Yes (glasses ) Review of Systems Const All systems reviewed & are unremarkable except as noted in HPI and below Card Denies chest pain and Denies dyspnea Resp Denies dyspnea GI Denies abdominal pain, Reports constipation, Denies heartburn, Denies nausea and Denies vomiting Psych Reports anxiety Physical Exam Vital Signs: Last Vital Signs Pulse 65 06/24/23 08:36 Resp 15 06/24/23 08:36 BP 108/49 L 06/24/23 08:36 BMI result Body Mass Index 21.9 Const General: cooperative, healthy appearing and comfortable Nutritional Appearance: thin Orientation/consciousness: patient oriented x3 Limitations: no limitations Eyes Sclerae: sclerae normal Cardio Rate: regular rate Rhythm: regular rhythm Heart sounds: S1 normal heart sound present and S2 normal heart sound present GI Palpation (GI): Soft to palpation and nontender Auscultation: normal bowel sounds Skin General skin exam: no rashes or lesions noted Neuro General: patient oriented x3 Extrem General: Yes full ROM Psych Affect: Anxious affect present Attitude: cooperative Thought process: Normal thought process present Thought content: Normal thought content present Insight: Good insight present (Psych) Judgement: Good judgement present (Psych) Results Reviewed Results Reviewed: pcp reviewed Assessment & Plan Assessment & Plan (1) Change in bowel habit: Comment: no wt, loss,rectal bleed or abdominal pain Code(s): R19.4 - Change in bowel habit Plan: Continue plan (2) Constipation: Code(s): K59.00 - Constipation, unspecified Plan: maintain HFD (3) Tubular adenoma of colon: Comment: 2018- Code(s): D12.6 - Benign neoplasm of colon, unspecified Plan: colonoscopy- polyp survellience Plan Colonoscopy-MG prep bowel regimen- Orders: Orders Colonoscopy - GI Use Only Today D12.6 - Benign neoplasm of colon, unspecified Medications: New bisacodyl (Dulcolax (bisacodyl)) Take 4 tablets by mouth at 12:00pm the day before your procedure. 20 mg (4 x 5 mg) PO ONCE 1 day 4 tabs 0RF colonoscopy prep Z12.11 - Encounter for screening for malignant neoplasm of colon polyethylene glycol 3350 (Miralax) Take as directed by mouth the day before your procedure. 238 grams PO ONCE 1 day PRN 238 grams 0RF laxative effect Patient Instructions: A pleasant 63 y/o female with MS- hx colon polyps- due for surveillance Colonoscopy-MG split prep, nreed escort , discussed rare risks- prep sent bowel regimen-HFD Call with concerns Coding Level of Care Code New Pt Level 3 (70920) Diagnoses Change in bowel habit R19.4 Constipation K59.00 Tubular adenoma of colon D12.6 Time Spent (min) 30
[2023-06-24 08:36] VITALS: BP 108/49; PULSE 65; RESP 15; BMI 21.9
== END 2023-06-24 11:19 | disposition home or self-care (01) ==
LOC: HO.HGIW 08:29
PROVIDERS: PCP Physician Assistant; Visit Provider Physician Assistant
DX: K59.00 Constipation, unspecified (principal); Z86.010 Personal history of colon polyps
CPT/HCPCS: 99203

== ENCOUNTER → 2023-06-24 08:29 | Outpatient (BNVA) | payer MEDICARE, SELFPAY | PROVIDERS: PCP Physician Assistant; Visit Provider Physician Assistant | DX: K59.00 Constipation, unspecified (principal); Z86.010 Personal history of colon polyps | CPT/HCPCS: 99202 ==

== ENCOUNTER 2023-11-18 09:57 | Day surgery (SDC) | payer MEDICARE, SELFPAY ==
[2023-11-14 14:27] VITALS: BMI 21.9
--- NOTE | 2023-11-18 09:51 | MHC.SHP ---
Pre-Procedural Eval Section A - 24 Hr Update-Section A only Date of Service: 11/18/23 Section B - Complete if H&P > 30 days Chief Complaint: Benign neoplasm of colon, unspecified Relevant Family History (Specify if Yes): No Relevant Social History: None Present Medications: see Short Stay Collaborative assessment Medical History: Significant History (MS) History of Previous Operations: Relevant previous surgery/procedure and date(s) (History of cosmetic surgery History of tonsillectomy History of torn meniscus of right knee History of total knee replacement (TKR) History of wisdom tooth extraction) Allergies: Allergies Allergy/AdvReac Type Severity Reaction Status Date / Time bee pollen Allergy Intermediate hives, Verified 06/24/23 08:35 itching Seasonal Allergies Allergy Intermediate Itchy Eyes Verified 11/14/23 14:25 lisinopril AdvReac Intermediate Cough Verified 11/14/23 14:25 Review of Systems Sugical H&P ROS: Negative: Constitution, Cardiovascular, Respiratory, Neurological, Psychiatric, Hem-Onc, Allergic/Immunologic, Gastrointestinal, Genitourinary, Musculoskeletal, Integumentary, Endocrine and Eyes/Ears/Nose/Throat Exam Surgical H&P Exam: Normal: HEENT, Normal: Heart, Normal: Lungs, Normal: Extremities, Normal: Abdomen, Normal: Skin and Normal: Neurological Plan Diagnosis/Plan: Unchanged I have reviewed the history and physical and performed a pertinent physical examination on my patient. No changes have occurred unless specified. Time Spent With Patient Time: Total time managing care of this patient today ____ minutes.
[2023-11-18] MEDS: Lactated Ringers 1,000 ML 80 ML IVCONT (10:36)
[2023-11-18 10:50] VITALS: BMI 22.1
[2023-11-18 11:04] VITALS: BP 124/77; PULSE 70; RESP 18; TEMP 36.7; O2SAT 96
--- NOTE | 2023-11-18 11:17 | W.PM.OPN ---
Operative Note Operative Note Date of Service: 11/18/23 Narrative: Operative Information Procedure Description: Colonoscopy Indication: screening Anesthesia: MAC COLONOSCOPY Instrument: Olympus variable stiffness pediatric scope 190L Colonoscopy Monitoring: Vital signs and clinical assessment, continuous EKG monitoring, Pulse oximetry, Carbon Dioxide monitoring and blood pressure monitoring were done throughout the procedure. Colon withdrawal time was 12 minutes. Procedure: The patient was placed in the left lateral decubitis position and pre-procedure medications were administered. After a digital rectal examination of the ano-rectum, the video colonoscope was inserted into the rectum and advanced through the colon to the cecum/TI. The colonoscope was slowly withdrawn in a retrograde panoramic fashion and the colon mucosa was carefully examined including a retroflexed view of the rectum. Findings and interventions are described below. Procedure Difficulty: difficult, tortuous colon Findings: Terminal Ileum- superficially intubated and normal Cecum:normal Right sided retroflexion- normal Ascending Colon: normal Transverse Colon -normal Descending Colon:normal Sigmoid Colon: moderate diverticulosis Rectum: Retroflexion with small internal hemorrhoids, grade I Anorectum - normal Colon preparation: [place] Bowel Preparation Scale Right colon; 2 Transverse colon: 3 Left colon; 3 (0 = Unprepared colon segment with mucosa not seen due to solid stool that cannot be cleared. 1 = Portion of mucosa of the colon segment seen, but other areas of the colon segment not well seen due to staining, residual stool and/or opaque liquid. 2 = Minor amount of residual staining, small fragments of stool and/or opaque liquid, but mucosa of colon segment seen well. 3 = Entire mucosa of colon segment seen well with no residual staining, small fragments of stool or opaque liquid) Impression and Post Procedure Diagnosis: internal hemorrhoids diverticular disease tortuous colon Plan: High fiber diet leaflet Avoid straining at stool, epsom salts and sitz bath, anusol supps or cream Repeat Colonoscopy in 10 years or earlier if clinically indicated Above findings were reviewed with the patient and relevant handouts were provided if indicated.
--- NOTE | 2023-11-18 11:52 | HO.ANESPROP2 ---
HPI - Anesthesia Eval Consult details Narrative: for colonoscopy [facility] Active Problems Active Problems: All Active Problems (Updated 11/14/23 @ 14:24 by Margie Link RN) Change in bowel habit (Acute) Constipation (Acute) Tubular adenoma of colon (Acute) ADD (attention deficit disorder) (Acute) Lower urinary tract symptoms (Acute) Cough (Acute) Sinusitis (Acute) Hyperinflation of lungs (Acute) SOB (shortness of breath) on exertion (Acute) Cough (Acute) Annual physical exam (Acute) Dysuria (Acute) Bee sting allergy (Acute) Ear fullness (Acute) Leukopenia (Acute) Lumbar spine pain (Acute) Nasal dermoid cyst (Acute) Osteoarthritis (Acute) HLD (hyperlipidemia) (Acute) HTN (hypertension) (Acute) MDD (major depressive disorder), recurrent episode, moderate (Acute) RED (generalized anxiety disorder) (Acute) Multiple sclerosis (Acute) Past Medical History Medical History Osteoarthritis Anxiety Depression ADD (attention deficit disorder) Elevated cholesterol HTN (hypertension) Multiple sclerosis Family History Family History Father CAD (coronary artery disease) Mother Diabetes Hypertension Cancer Brother Multiple sclerosis Family history of problems with anesthesia: No Surgical History Surgical History History of total knee replacement (TKR) History of cosmetic surgery History of torn meniscus of right knee History of wisdom tooth extraction History of tonsillectomy History of Problems with Anesthesia: No Social History Social History Housing: House Alcohol intake: never Patient Tobacco Use Status: Former Tobacco user Quit Date: 1989 Tobacco use type: Cigarette e-Cigarette/Vaping Use: Never Used Second Hand Smoke Exposure: No Are you DNR?: No Advance Directives: No Advance Directives Information Provided: Yes Nutrition Risks: No Nutritional Risk service: No Current occupational status: employed Current occupation: [employer]. Current occupational exposures/hazards: No Cognitive needs: No Hearing needs: No Vision needs: Yes (glasses ) Meds Allergies Allergy/AdvReac Type Severity Reaction Status Date / Time bee pollen Allergy Intermediate hives, Verified 11/18/23 11:05 itching Seasonal Allergies Allergy Intermediate Itchy Eyes Verified 11/18/23 11:05 lisinopril AdvReac Intermediate Cough Verified 11/18/23 11:05 Active Medications: Current Medications Lactated Ringer's (Lr) 1,000 mls @ 80 mls/hr IVCONT .[id number] ISMAEL Last Admin: 11/18/23 10:36 Dose: 80 mls/hr Home Medications Medication Instructions Recorded Confirmed Last Taken Type cholecalciferol (vitamin D3) 25 25 mcg PO DAILY 11/14/20 11/14/23 Unknown History mcg (1,000 unit) capsule gabapentin 100 mg capsule 100 mg PO TID 11/14/20 11/14/23 Unknown History omega 9-kcg-ivq-fish oil 100 1 cap PO DAILY 05/24/21 11/14/23 Unknown History mg-160 mg-1,000 mg capsule ofatumumab 20 mg/0.4 mL mg subcut 11/27/21 05/15/23 Unknown History subcutaneous pen injector (Kesimpta Pen) Exam Height,Weight and Vital Signs: Height 5 ft Weight 51.256 kg Last Vital Signs Temp 98.0 F 11/18/23 11:04 Pulse 70 11/18/23 11:04 Resp 18 11/18/23 11:04 BP 124/77 11/18/23 11:04 Pulse Ox 96 11/18/23 11:04 O2 Del Method Room Air 11/18/23 11:04 Airway Mallampati Class: II TM Dist: >3cm Neck ROM: Full Heart: rrr Lungs: cta Assessment and Plan Assessment Anesthesia Assessment: Anesthesia Plan Discussed and Chart Reviewed Final Anesthetic Review Family History of Problems with Anesthesia: No History of Problems with Anesthesia: No NPO: Yes ASA Class: III Final Preanesthetic Review: No Changes in Pt Med Stat, Meds/Allgs Chart Reviewed, Consent Obtained/Reviewed and Anes Risks/Benef Reviewed Patient Risk: Low Procedure Risk: Low Anesthetic Plan Anesthetic Plan: MAC: Disposition: Standard PACU
[2023-11-18 12:16] VITALS: BP 149/72; PULSE 78; RESP 20; TEMP 36.4; O2SAT 96
[2023-11-18 12:31] VITALS: BP 128/61; PULSE 73; RESP 16; TEMP 36.4; O2SAT 96
== END 2023-11-18 12:51 | disposition home or self-care (01) ==
PROVIDERS: PCP Physician Assistant; Visit Provider Internal Medicine Gastroenterology
PROC: 0DJD8ZZ Inspection of Lower Intestinal Tract, Via Natural or Artificial Opening Endoscopic (ICD-10-PCS; CPT 45378; principal; 2023-11-18 10:50)
DX: Z12.11 Encounter for screening for malignant neoplasm of colon (principal); Z86.010 Personal history of colon polyps; Q43.8 Other specified congenital malformations of intestine; K57.30 Diverticulosis of large intestine without perforation or abscess without bleeding; K64.0 First degree hemorrhoids; G35 Multiple sclerosis; I10 Essential (primary) hypertension; E78.00 Pure hypercholesterolemia, unspecified; Z79.899 Other long term (current) drug therapy; Z88.8 Allergy status to other drugs, medicaments and biological substances; Z98.890 Other specified postprocedural states; Z87.891 Personal history of nicotine dependence
CPT/HCPCS: G0105; J2704

== ENCOUNTER → 2023-11-18 09:57 | Outpatient (BNV) | payer MEDICARE, SELFPAY | PROVIDERS: PCP Physician Assistant; Visit Provider Internal Medicine Gastroenterology | DX: Z12.11 Encounter for screening for malignant neoplasm of colon (principal); Z86.010 Personal history of colon polyps; K64.0 First degree hemorrhoids; K57.30 Diverticulosis of large intestine without perforation or abscess without bleeding | CPT/HCPCS: G0105 ==

== ENCOUNTER 2023-11-24 13:24 | Outpatient (AMB) | payer MEDICARE, SELFPAY ==
[2023-11-24 13:24] VITALS: BP 128/72; PULSE 69; O2SAT 98; BMI 22.5
--- NOTE | 2023-11-24 13:24 | A.OFFPC_ITS ---
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[employer] Equipment Required: No Allergies bee pollen Allergy (Intermediate, Verified 11/24/23 13:38) hives, itching Seasonal Allergies Allergy (Intermediate, Verified 11/24/23 13:38) Itchy Eyes lisinopril Adverse Reaction (Intermediate, Verified 11/24/23 13:38) Cough Medication List - Last Reconciled 11/24/23 by Angela Kuo, [facility]- albuterol sulfate 90 mcg/actuation 2 puffs inhalation Q6H PRN amlodipine 10 mg PO DAILY baclofen 10 mg PO BEDTIME 14 days cholecalciferol (vitamin D3) 25 mcg PO DAILY clonidine HCl 0.1 mg PO BID dextroamphetamine-amphetamine 5 mg 1 tab PO DAILY 30 days diphenhydramine HCl (Benadryl Allergy) 50 mg (2 x 25 mg) PO Q6H PRN 10 days epinephrine (EpiPen 2-Sherman) 0.3 mg (0.3 mL) IM Q10M PRN 30 days fluoxetine 40 mg PO DAILY 90 days gabapentin 100 mg PO TID meloxicam 15 mg PO DAILY 90 days ofatumumab (Kesimpta Pen) mg subcut omega 9-emp-yas-fish oil 100-160-1,000 mg 1 cap PO DAILY pseudoephedrine HCl 60 mg PO Q6H PRN trazodone 100 mg PO DAILY 90 days Tobacco use date assessed: 11/24/23 Fall risk assessment: No Falls in past year Last assessed Fall Risk: 11/24/23 HPI HPI Comments 2 History of Present Illness0 Details Here today w/ left pelvic pain. Present for months assoc w/ a strong urge to urinate, worse at night, The LLQ is tender to touch, flexing leg or crossing leg increases pain s/p TA hysterectomy and single oopherectomy L d/t abnormal paps. Goes annual to [employer] [facility]. Last visit 1 year ago. Reports normal PAP. Denies hematuria, vaginal d/c or bleeding. Wt increase. /appetite WNL. PFSH Medical History Osteoarthritis Anxiety Depression ADD (attention deficit disorder) Elevated cholesterol HTN (hypertension) Multiple sclerosis Surgical History History of total knee replacement (TKR) History of cosmetic surgery History of torn meniscus of right knee History of wisdom tooth extraction History of tonsillectomy Family History Father CAD (coronary artery disease) Mother Diabetes Hypertension Cancer Brother Multiple sclerosis Social History Housing: House Alcohol intake: never Patient Tobacco Use Status: Former Tobacco user Quit Date: 1989 Tobacco use type: Cigarette e-Cigarette/Vaping Use: Never Used Second Hand Smoke Exposure: No service: No Current occupational status: employed Current occupation: [employer]. Current occupational exposures/hazards: No Cognitive needs: No Hearing needs: No Vision needs: Yes (glasses ) Questionnaire Thrive Questionnaire Date Thrive assessed: 05/15/23 AUDIT C Alcohol Use Questionnaire (AUDIT-C) 1. How often do you have a drink containing alcohol?: 2-4 times a month 2. How many drinks containing alcohol do you have on a typical day when you are drinking?: 1 or 2 3. How often do you have six or more drinks on one occasion?: Never Total Score: 2 RED-7 AMB Questionnaire RED-7 Date RED - 7 assessed: 02/13/23 Source: Developed by Drs. Sarkis Guerrero, Dalila Rashid, Wayne Diehl and colleagues, with an educational ivory from [employer]. Review of Systems Const All systems reviewed & are unremarkable except as noted in HPI and below Physical exam (Primary Care) Vital Signs: Last Vital Signs Pulse 69 11/24/23 13:24 BP 128/72 11/24/23 13:24 Pulse Ox 98 11/24/23 13:24 Oxygen Delivery Method Room Air 11/24/23 13:24 BMI result Body Mass Index 22.5 Tobacco/Smoking Status: Tobacco use Status Tobacco use date assessed 11/24/23 11/24/23 13:27 Patient Tobacco Use Status Former Tobacco user 11/24/23 13:27 Tobacco use type Cigarette 11/24/23 13:27 e-Cigarette/Vaping Use Never Used 11/24/23 13:27 Thrive Assessment: Date of Thrive Assessment Date Thrive assessed 05/15/23 11/24/23 13:27 Const Other: awake alert MMM Speaking in full sentences Other: Abd is soft, no hepatosplenomegaly, BS WNL x 4 quads, no peritoneal signs, no gaurding. NO CVAT bilat. Female genitals images: 2 1. tender and palpable immobile mass, ? lymphnode, tender to touch 2. pain w/ palp w/o palpable mass Assessment and Plan Assessment & Plan (1) Inguinal adenopathy: Comment: left side Code(s): R59.0 - Localized enlarged lymph nodes (2) Pelvic pain in female: Code(s): R10.2 - Pelvic and perineal pain Plan Stat ultrasound ordered to evaluate her symptoms. I do not think a urine sample was needed. Patient mutually agrees. I will follow up with her by phone once the results of the imaging is done and determine a plan of care from there. Total time spent caring for the patient today was 30 minutes. This includes time spent before the visit reviewing the chart, time spent during the visit, and time spent after the visit on documentation This note is constructed using voice recognition software. While every effort has been made to ensure accuracy in acid mixer, still errors may have been included Sometimes, these errors may affect the content or meaning of the given sentence . Orders: Orders 2 US pelvic and transvaginal Today R10.2 - Pelvic and perineal pain, R59.0 - Localized enlarged lymph nodes Coding Level of Care Code Est Pt Level 4 (90355) Diagnoses Inguinal adenopathy R59.0 Pelvic pain in female R10.2
== END 2023-11-24 14:53 | disposition home or self-care (01) ==
PROVIDERS: PCP Physician Assistant; Visit Provider Nurse Practitioner Family
DX: R59.0 Localized enlarged lymph nodes (principal); R10.2 Pelvic and perineal pain
CPT/HCPCS: 99214

== ENCOUNTER 2023-11-24 14:34 | Outpatient (REF) | payer MEDICARE, SELFPAY ==
--- NOTE | ~2023-11-24 | US_ITS ---
EXAMINATION: US PELVIS CLINICAL INFORMATION: Pelvic and perineal pain, left inguinal pain Postmenopausal COMPARISON: None available. TECHNIQUE: Ultrasound of the pelvis is performed using transabdominal transducers along with Doppler. The patient did not want transvaginal scanning. FINDINGS: The patient is status post hysterectomy and bilateral oophorectomy. No adnexal masses are demonstrated. Ultrasound of the left inguinal region demonstrates a 3.5 x 1.0 x 1.6 cm solid well-defined mass without associated internal vascularity in the left inguinal canal. This is consistent with a hernia. The mass moves with compression and Valsalva maneuver. US/US pelvic complete IMPRESSION: 1. Prior hysterectomy and bilateral oophorectomy. 2. 3.5 cm solid mass in the left inguinal canal is consistent with a hernia.
== END 2023-11-24 14:35 | disposition home or self-care (01) ==
LOC: HO.US 14:34
PROVIDERS: PCP Physician Assistant; Visit Provider Nurse Practitioner Family
DX: R10.2 Pelvic and perineal pain (principal); R59.0 Localized enlarged lymph nodes
CPT/HCPCS: 76856

== ENCOUNTER 2023-12-03 11:09 | Outpatient (AMB) | payer MEDICARE, SELFPAY ==
[2023-12-03 11:21] VITALS: BP 128/70; PULSE 88
--- NOTE | 2023-12-03 11:21 | A.OFFVIS_ITS ---
Intake Vital Signs 12/03/23 11:21 Weight 111 lb 8.862 oz BP 128/70 Blood Pressure Location Lt brachial Position Sitting Pulse 88 Intake Visit Reasons: Unilateral inguinal hernia Intake Note: Patient referred by Talha Lennon for Unilateral hernia. Recent pelvic US on 11-24-23. 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 Workup including a pelvic ultrasound was consistent with a left inguinal hernia. Patient has no other GI issues or complaints. She has tolerating a diet. He is having regular bowel habits. She is quite active. Chart was reviewed and patient evaluated [facility]LY [facility] Medical History Osteoarthritis Anxiety Depression ADD (attention deficit disorder) Elevated cholesterol HTN (hypertension) Multiple sclerosis Surgical History History of total knee replacement (TKR) History of cosmetic surgery History of torn meniscus of right knee History of wisdom tooth extraction History of tonsillectomy Family History Father CAD (coronary artery disease) Mother Diabetes Hypertension Cancer Brother Multiple sclerosis Social History Housing: House Alcohol intake: never Patient Tobacco Use Status: Former Tobacco user Quit Date: 1989 Tobacco use type: Cigarette e-Cigarette/Vaping Use: Never Used Second Hand Smoke Exposure: No service: No Current occupational status: employed Current occupation: [employer]. Current occupational exposures/hazards: No Cognitive needs: No Hearing needs: No Vision needs: Yes (glasses ) Physical Exam Vital Signs: Last Vital Signs Pulse 88 12/03/23 11:21 BP 128/70 12/03/23 11:21 Chest Other: Chest breath sounds bilaterally, HS 1 in 2 GI Other: Patient was examined both supine and standing with Valsalva. Right groin negative. Left groin demonstrates left inguinal hernia. No obvious femoral hernia was identified. Assessment & Plan Assessment & Plan (1) Inguinal hernia of left side without obstruction or gangrene: Comment: 11/24/23 US: 3.5 cm solid mass in the left inguinal canal is consistent with a hernia. Code(s): K40.90 - Unilateral inguinal hernia, without obstruction or gangrene, not specified as recurrent Plan Risks, benefits, and alternatives left open inguinal hernia repair with mesh were reviewed with the patient and included but not limited to bleeding, infection, recurrence, numbness, pain, scarring and the patient wished to proceed. All questions answered. Arrangements were made for this. She is going on a cruise shortly and would like to have this surgery after her return. Coding Level of Care Code New Pt Level 5 (18653) Diagnoses Inguinal hernia of left side without obstruction or gangrene K40.90
== END 2023-12-03 11:38 | disposition home or self-care (01) ==
PROVIDERS: PCP Physician Assistant; Visit Provider Surgery
DX: K40.90 Unilateral inguinal hernia, without obstruction or gangrene, not specified as recurrent (principal)
CPT/HCPCS: 99204

== ENCOUNTER → 2023-12-03 11:09 | Outpatient (BNVA) | payer MEDICARE, SELFPAY | PROVIDERS: PCP Physician Assistant; Visit Provider Surgery | DX: K40.90 Unilateral inguinal hernia, without obstruction or gangrene, not specified as recurrent (principal) | CPT/HCPCS: 99202 ==

== ENCOUNTER 2023-12-03 15:35 | Outpatient (AMB) | payer MEDICARE, SELFPAY ==
--- NOTE | 2023-12-03 15:36 | MHC.PC.OV ---
Intake Visit Reasons: Anxiety and Depression getting worse. 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: No Accompanied by: Self / Same As Patient Allergies bee pollen Allergy (Intermediate, Verified 12/03/23 16:23) hives, itching Seasonal Allergies Allergy (Intermediate, Verified 12/03/23 16:23) Itchy Eyes lisinopril Adverse Reaction (Intermediate, Verified 12/03/23 16:23) Cough Medication List - Last Reconciled 12/03/23 by Talha Lennon PA-C albuterol sulfate 90 mcg/actuation 2 puffs inhalation Q6H PRN amlodipine 10 mg PO DAILY baclofen 10 mg PO BEDTIME 14 days cholecalciferol (vitamin D3) 25 mcg PO DAILY clonidine HCl 0.1 mg PO BID dextroamphetamine-amphetamine 5 mg 1 tab PO DAILY 30 days diphenhydramine HCl (Benadryl Allergy) 50 mg (2 x 25 mg) PO Q6H PRN 10 days epinephrine (EpiPen 2-Sherman) 0.3 mg (0.3 mL) IM Q10M PRN 30 days fluoxetine 40 mg PO DAILY 90 days gabapentin 100 mg PO TID meloxicam 15 mg PO DAILY 90 days ofatumumab (Kesimpta Pen) mg subcut omega 3-bnx-ppw-fish oil 100-160-1,000 mg 1 cap PO DAILY pseudoephedrine HCl 60 mg PO Q6H PRN trazodone 100 mg PO DAILY 90 days Tobacco use date assessed: 11/24/23 HPI Anxiety and Depression getting worse. HPI Details Patient is a 63-year-old female being evaluated today via telephone only. She has a past medical history of chronic depression and reports during the winter months she has worsening depression. Reports feeling very fatigued, unmotivated and wanting to sleep all day.. Denies any suicidal ideation. She is interested in trying an augment her such as Wellbutrin for the time being to help her with her depressive mood and thoughts. [facility] Medical History Osteoarthritis Anxiety Depression ADD (attention deficit disorder) Elevated cholesterol HTN (hypertension) Multiple sclerosis Surgical History History of total knee replacement (TKR) History of cosmetic surgery History of torn meniscus of right knee History of wisdom tooth extraction History of tonsillectomy Family History Father CAD (coronary artery disease) Mother Diabetes Hypertension Cancer Brother Multiple sclerosis Social History Housing: House Alcohol intake: never Patient Tobacco Use Status: Former Tobacco user Quit Date: 1989 Tobacco use type: Cigarette e-Cigarette/Vaping Use: Never Used Second Hand Smoke Exposure: No service: No Current occupational status: employed Current occupation: [employer]. Current occupational exposures/hazards: No Cognitive needs: No Hearing needs: No Vision needs: Yes (glasses ) Questionnaire PHQ-9 Over the last 2 weeks, how often have you been bothered by any of the following problems? 1. Little interest or pleasure in doing things: nearly every day 2. Feeling down, depressed, or hopeless: more than half the days 3. Trouble falling or staying asleep, or sleeping too much: nearly every day 4. Feeling tired or having little energy: nearly every day 5. Poor appetite or overeating: more than half the days 6. Feeling bad about yourself - or that you are a failure or have let yourself or your family down: more than half the days 7. Trouble concentrating on things, such as reading the newspaper or watching television: nearly every day 8. Moving or speaking so slowly that other people could have noticed. Or the opposite - being so fidgety or restless that you have been moving around a lot more than usual: not at all 9. Thoughts that you would be better off or of hurting yourself in some way: several days Total score: 19 Depression Screening Interpretation: Positive Depression Screening Follow-up: Existing condition and New Medication prescribed Depression Screening Done: Yes 92050 - PHQ-9 Billing: Yes Source: Developed by Drs. Sarkis Guerrero, Dalila Rashid, Wayne Diehl and colleagues, with an educational ivory from [employer]. Thrive Questionnaire Date Thrive assessed: 12/03/23 I am a: Patient What is your living situation today?: I have a steady place to live Within the past 12 months, did the food you bought not last and you didn't have the money to get more?: Never true Within the past 12 months, did you worry whether your food would run out before you got money to buy more?: Never true Do you have trouble paying for medicines?: No Do you have trouble getting transportation to medical appointments?: No Do you have trouble paying your heating and electricity bill?: No Do you have trouble taking care of your child, family member or friend?: No Do you have trouble with day-to-day activities such as bathing, preparing meals, shopping, managing finances, etc.?: No Are you currently unemployed and looking for a job?: No Are you interested in more education?: No Please select the resources that you would like help with: None Currently or been in a relationship where the following occur: no concerns reported THRIVE Score: 0 AUDIT C Alcohol Use Questionnaire (AUDIT-C) 1. How often do you have a drink containing alcohol?: Monthly or less 2. How many drinks containing alcohol do you have on a typical day when you are drinking?: 1 or 2 3. How often do you have six or more drinks on one occasion?: Never Total Score: 1 RED-7 AMB Questionnaire RED-7 Date RED - 7 assessed: 12/03/23 Feeling nervous, anxious, or on edge: 3 = Nearly every day Not being able to stop or control worryin = More than half the days Worrying too much about different things: 2 = More than half the days Trouble relaxin = More than half the days Being so restless that it is hard to sit still: 1 = Several days Becoming easily annoyed or irritable: 3 = Nearly every day Feeling afraid as if something awful might happen: 2 = More than half the days Total RED-7 score (0-4 normal; 5-9 mild; 10-14 moderate; 15-21 severe): 15 Source: Developed by Drs. Sarkis Guerrero, Dalila Rashid, Wayne Diehl and colleagues, with an educational ivory from [employer]. RED-7 Assessment Billing RED-7 Assessment Tool: RED-7 Assessment 65752 Review of Systems Const Denies headache(s) Eyes Denies loss of vision ENT Denies vertigo, Denies dizziness, Denies headache(s) and Denies sore throat Card Denies chest pain, Denies leg edema and Denies lightheadedness Resp Denies cough, Denies hemoptysis and Denies wheezing GI Denies abdominal pain, Denies melena, Denies constipation, Denies diarrhea and Denies vomiting Denies urinary frequency, Denies dysuria and Denies urinary urgency Musc Denies arthralgias, Denies joint swelling, Denies numbness and Denies tingling Neuro Denies behavioral changes, Denies vertigo, Denies dizziness, Denies headache(s), Denies loss of vision, Denies memory loss, Denies numbness and Denies tingling Psych Reports abnormal sleep pattern, Denies anxiety, Denies behavioral changes, Reports depression, Reports difficulty concentrating, Reports irritability, Reports anhedonia, Denies memory loss and Denies panic attacks Magnus/Lymph Denies easy bleeding and Denies easy bruising Aller/Immun Denies wheezing Physical exam (Primary Care) Tobacco/Smoking Status: Tobacco use Status Tobacco use date assessed 11/24/23 12/03/23 15:41 Patient Tobacco Use Status Former Tobacco user 12/03/23 15:41 Tobacco use type Cigarette 12/03/23 15:41 e-Cigarette/Vaping Use Never Used 12/03/23 15:41 Depression Screening Interpretation: Positive Depression Screening Follow-up: Existing condition and New Medication prescribed Thrive Assessment: Date of Thrive Assessment Date Thrive assessed 12/03/23 12/03/23 15:41 Currently or been in a relationship where the following occur: no concerns reported Telehealth Telehealth Location of provider rendering services: practice address Location of patient: address on file Patient Identification confirmed using: Name, : Yes Telehealth method: voice only Patient verbally consented to treatment: Yes Patient verbally consented to billing insurance company: Yes Patient informed of any privacy concerns related to visit: Yes Minutes spent on Phone/Video with Pt.: 11 Assessment and Plan Assessment & Plan (1) MDD (major depressive disorder), recurrent episode, moderate: Code(s): F33.1 - Major depressive disorder, recurrent, moderate Plan: Patient suffering from worsening depression likely due to seasonal affective disorder. Did discuss about using a sad lamp to help with her seasonal affective disorder. Patient interested in adding on Wellbutrin temporarily to help her with her depressive mood and thoughts. Orders: Orders Lipid Panel Today E78.2 - Mixed hyperlipidemia Comprehensive [place]. Panel Fast Today I10 - Essential (primary) hypertension Microalbumin, Random (w Creat) Today I10 - Essential (primary) hypertension Complete Blood Count no Diff Today D72.819 - Decreased white blood cell count, unspecified Medications: New fluoxetine 80 mg (2 x 40 mg) PO DAILY 90 days 180 caps 1RF F33.1 - Major depressive disorder, recurrent, moderate bupropion HCl 100 mg PO DAILY 60 days 60 tabs 0RF F33.1 - Major depressive disorder, recurrent, moderate Coding Level of Care Code Tele Est Pt Level 3 (78925) Diagnoses MDD (major depressive disorder), recurrent episode, moderate F33.1 Additional Codes RED-7 Assessment Billing - RED-7 Assessment Tool: RED-7 Assessment 00501 ([id number])
== END 2023-12-03 16:42 | disposition home or self-care (01) ==
LOC: HO.HMGH 15:35
PROVIDERS: PCP Physician Assistant; Visit Provider Physician Assistant
DX: F33.1 Major depressive disorder, recurrent, moderate (principal)
CPT/HCPCS: 99442

== ENCOUNTER 2024-01-30 09:08 | Day surgery (SDC) | payer MEDICARE, SELFPAY ==
[2024-01-27 14:44] VITALS: BMI 21.8
--- NOTE | 2024-01-29 11:50 | MHC.SHP ---
Pre-Procedural Eval Section A - 24 Hr Update-Section A only Date of Service: 01/29/24 The patient is an INPATIENT: No Changes since office visit: No Cold of Flu in the past 2 weeks, No New Medical Problems, No Changes in Medication and No Patient answered all questions Section B - Complete if H&P > 30 days Chief Complaint: Unilateral inguinal hernia, without obstruction or Allergies: Allergies Allergy/AdvReac Type Severity Reaction Status Date / Time bee pollen Allergy Intermediate hives, Verified 12/03/23 16:23 itching Seasonal Allergies Allergy Intermediate Itchy Eyes Verified 12/03/23 16:23 lisinopril AdvReac Intermediate Cough Verified 12/03/23 16:23 Plan I have reviewed the history and physical and performed a pertinent physical examination on my patient. No changes have occurred unless specified. Time Spent With Patient Time: Total time managing care of this patient today ____ minutes.
--- NOTE | 2024-01-29 11:55 | HO.ANESPROP2 ---
Documented by User: Daina Salas NP 01/29/24 11:56 HPI - Anesthesia Eval Consult details Narrative: 63yo F for Left OPEN Hernia Inguinal Reducible,with mesh s/p colonoscopy 10/2023 with [facility] Active Problems Active Problems: All Active Problems Inguinal hernia of left side without obstruction or gangrene (Acute) Change in bowel habit (Acute) Constipation (Acute) Tubular adenoma of colon (Acute) ADD (attention deficit disorder) (Acute) Lower urinary tract symptoms (Acute) Cough (Acute) Sinusitis (Acute) Hyperinflation of lungs (Acute) SOB (shortness of breath) on exertion (Acute) Cough (Acute) Annual physical exam (Acute) Dysuria (Acute) Bee sting allergy (Acute) Ear fullness (Acute) Leukopenia (Acute) Lumbar spine pain (Acute) Nasal dermoid cyst (Acute) Osteoarthritis (Acute) HLD (hyperlipidemia) (Acute) HTN (hypertension) (Acute) MDD (major depressive disorder), recurrent episode, moderate (Acute) RED (generalized anxiety disorder) (Acute) Multiple sclerosis (Acute) Past Medical History Medical History Bronchitis Bleb, lung Osteoarthritis Anxiety Depression ADD (attention deficit disorder) Elevated cholesterol HTN (hypertension) Multiple sclerosis Family History Family History Father CAD (coronary artery disease) Mother Diabetes Hypertension Cancer Brother Multiple sclerosis Family history of problems with anesthesia: No Surgical History Surgical History Hx of hand surgery Hx of hysterectomy H/O colonoscopy History of total knee replacement (TKR) History of cosmetic surgery History of torn meniscus of right knee History of wisdom tooth extraction History of tonsillectomy History of Problems with Anesthesia: No Social History Social History Housing: House Alcohol intake: never Patient Tobacco Use Status: Former Tobacco user Quit Date: 30 yrs ago Tobacco use type: Cigarette e-Cigarette/Vaping Use: Never Used Second Hand Smoke Exposure: No Use of substances other than those prescribed or required for medical reasons: No Are you DNR?: No Advance Directives: No Advance Directives Information Provided: Yes service: No Current occupational status: employed Current occupation: [employer]. Current occupational exposures/hazards: No Cognitive needs: No Hearing needs: No Vision needs: Yes (glasses ) Meds Allergies Allergy/AdvReac Type Severity Reaction Status Date / Time bee pollen Allergy Intermediate hives, Verified 01/30/24 09:41 itching Seasonal Allergies Allergy Intermediate Itchy Eyes Verified 01/30/24 09:41 lisinopril AdvReac Intermediate Cough Verified 01/30/24 09:41 Active Medications: Current Medications Cefazolin Sodium/Dextrose (Ancef) 2 gm in 50 mls @ 100 mls/hr IV PREOP ONE Stop: 01/29/24 12:18 Home Medications ?Medication ?Instructions ?Recorded ?Confirmed ?Last Taken ?Type cholecalciferol (vitamin D3) 25 25 mcg PO DAILY 11/14/20 01/30/24 Unknown History mcg (1,000 unit) capsule gabapentin 100 mg capsule 100 mg PO TID PRN Pain 11/14/20 01/30/24 Unknown History omega 2-bkc-iel-fish oil 100 1 cap PO DAILY 05/24/21 01/30/24 Unknown History mg-160 mg-1,000 mg capsule ofatumumab 20 mg/0.4 mL 20 mg subcut QMONTH 11/27/21 01/30/24 Unknown History subcutaneous pen injector (Kesimpta Pen) baclofen 10 mg tablet 10 mg PO BEDTIME PRN Muscle Pain 01/30/24 01/30/24 Unknown History clonidine HCl 0.1 mg tablet 0.1 mg PO BID PRN adhd 01/30/24 01/30/24 Unknown History dextroamphetamine-amphetamine 5 mg 1 tab PO DAILY PRN attention 01/30/24 01/30/24 Unknown History tablet deficit hyperactivity disorder fluoxetine 40 mg capsule 40 mg PO DAILY 01/30/24 01/30/24 Unknown History Exam Height,Weight and Vital Signs: Height 5 ft Weight 50.6 kg Assessment and Plan Assessment Anesthesia Assessment: Chart Reviewed Final Anesthetic Review Family History of Problems with Anesthesia: No History of Problems with Anesthesia: No Documented by User: Augusta Moran MD 01/30/24 13:03 [facility] Past Medical History Medical History Bronchitis Bleb, lung Osteoarthritis Anxiety Depression ADD (attention deficit disorder) Elevated cholesterol HTN (hypertension) Multiple sclerosis Family History Family History Father CAD (coronary artery disease) Mother Diabetes Hypertension Cancer Brother Multiple sclerosis Surgical History Surgical History Hx of hand surgery Hx of hysterectomy H/O colonoscopy History of total knee replacement (TKR) History of cosmetic surgery History of torn meniscus of right knee History of wisdom tooth extraction History of tonsillectomy Social History Social History Housing: House Alcohol intake: never Patient Tobacco Use Status: Former Tobacco user Quit Date: 30 yrs ago Tobacco use type: Cigarette e-Cigarette/Vaping Use: Never Used Second Hand Smoke Exposure: No Use of substances other than those prescribed or required for medical reasons: No Are you DNR?: No Advance Directives: No Advance Directives Information Provided: Yes service: No Current occupational status: employed Current occupation: [employer]. Current occupational exposures/hazards: No Cognitive needs: No Hearing needs: No Vision needs: Yes (glasses ) Meds Allergies Allergy/AdvReac Type Severity Reaction Status Date / Time bee pollen Allergy Intermediate hives, Verified 01/30/24 09:41 itching Seasonal Allergies Allergy Intermediate Itchy Eyes Verified 01/30/24 09:41 lisinopril AdvReac Intermediate Cough Verified 01/30/24 09:41 Home Medications ?Medication ?Instructions ?Recorded ?Confirmed ?Last Taken ?Type cholecalciferol (vitamin D3) 25 25 mcg PO DAILY 11/14/20 01/30/24 Unknown History mcg (1,000 unit) capsule gabapentin 100 mg capsule 100 mg PO TID PRN Pain 11/14/20 01/30/24 Unknown History omega 8-mgh-hxg-fish oil 100 1 cap PO DAILY 05/24/21 01/30/24 Unknown History mg-160 mg-1,000 mg capsule ofatumumab 20 mg/0.4 mL 20 mg subcut QMONTH 11/27/21 01/30/24 Unknown History subcutaneous pen injector (Kesimpta Pen) baclofen 10 mg tablet 10 mg PO BEDTIME PRN Muscle Pain 01/30/24 01/30/24 Unknown History clonidine HCl 0.1 mg tablet 0.1 mg PO BID PRN adhd 01/30/24 01/30/24 Unknown History dextroamphetamine-amphetamine 5 mg 1 tab PO DAILY PRN attention 01/30/24 01/30/24 Unknown History tablet deficit hyperactivity disorder fluoxetine 40 mg capsule 40 mg PO DAILY 01/30/24 01/30/24 Unknown History Exam Airway Mallampati Class: II TM Dist: >3cm Neck ROM: Full Loose/Missing/Broken Teeth: No Heart: RRR Lungs: CTA Assessment and Plan Assessment Anesthesia Assessment: Anesthesia Plan Discussed Final Anesthetic Review NPO: Yes ASA Class: II Final Preanesthetic Review: Meds/Allgs Chart Reviewed, Consent Obtained/Reviewed and Anes Risks/Benef Reviewed Patient Risk: Intermediate Procedure Risk: Low Anesthetic Plan Anesthetic Plan: GA Disposition: Standard PACU
[2024-01-30] VITALS (7 sets, daily range): BP systolic 119–143; BP diastolic 52–69; PULSE 72–78; RESP 15–18; TEMP 36.3–36.9; O2SAT 96–100; BMI 21.6
--- NOTE | 2024-01-30 10:00 | MHC.SHP ---
Pre-Procedural Eval Section A - 24 Hr Update-Section A only Date of Service: 01/30/24 The patient is an INPATIENT: No Changes since office visit: No Cold of Flu in the past 2 weeks, No New Medical Problems, No Changes in Medication and No Patient answered all questions The patient has been examined within 24 hours of the surgical procedure. The History & Physical has been completed within 30 days and I have reviewed it.: Yes Section B - Complete if H&P > 30 days Chief Complaint: Unilateral inguinal hernia, without obstruction or Details of Present Illness: Left inguinal hernia repair with possible mesh open technique Allergies: Allergies Allergy/AdvReac Type Severity Reaction Status Date / Time bee pollen Allergy Intermediate hives, Verified 01/30/24 09:41 itching Seasonal Allergies Allergy Intermediate Itchy Eyes Verified 01/30/24 09:41 lisinopril AdvReac Intermediate Cough Verified 01/30/24 09:41 Plan I have reviewed the history and physical and performed a pertinent physical examination on my patient. No changes have occurred unless specified. Time Spent With Patient Time: Total time managing care of this patient today ____ minutes.
[2024-01-30] MEDS: Lactated Ringers 1,000 ML 100 ML IVCONT (10:24)
--- NOTE | 2024-01-30 13:24 | W.PM.OPN ---
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 No direct hernia demonstrated. Findings: [] Patient brought to the operating room, placed on operative table in supine position, and after an adequate level of general anesthesia was induced, the left groin was prepped and draped in usual sterile fashion using a small left para inguinal incision, this carried down through skin, subcutaneous tissue, Preeti's fascia. External oblique fibers were opened their direction with care to isolate and preserve the ilioinguinal nerve throughout the procedure. Round ligament was fired and retracted from the field. Moderately sized indirect hernia sac in the round ligament was identified and amputated. A Bard plug was placed in the indirect defect and sutured inferiorly to the inguinal ligament and superiorly to transfuse fascia using interrupted 0 Ethibond suture. At the Completion of procedure, mesh also covered the entire inguinal floor. Wound was irrigated, secured hemostasis, and closed in the following manner; external oblique fascia was closed using running 2-0 Vicryl suture. Preeti's fascia was reapproximated using interrupted 3-0 Vicryl sutures. Interrupted inverted deep dermal 3-0 Vicryl sutures followed by running subcuticular 4-0 Vicryl sutures were placed. Steri-Strips and sterile dressings were applied. Wound was infiltrated at the beginning at the end with 0.5% Marcaine/1% lidocaine with ilioinguinal block and local wound infiltration. Sponge, needle, and instrument counts reported correct. Patient tolerated the procedure well and emerged anesthesia stable condition. EBL minimal
[2024-01-30] MEDS: Acetaminophen 325 MG TABLET 650 MG PO (14:16)
== END 2024-01-30 15:11 | disposition home or self-care (01) ==
PROVIDERS: PCP Physician Assistant; Visit Provider Surgery
PROC: (CPT 49505; principal; 2024-01-30 12:30)
DX: K40.90 Unilateral inguinal hernia, without obstruction or gangrene, not specified as recurrent (principal); J30.2 Other seasonal allergic rhinitis; I10 Essential (primary) hypertension; G35 Multiple sclerosis; E78.00 Pure hypercholesterolemia, unspecified; J43.9 Emphysema, unspecified; Z79.899 Other long term (current) drug therapy; Z88.8 Allergy status to other drugs, medicaments and biological substances; Z98.890 Other specified postprocedural states; Z87.891 Personal history of nicotine dependence
CPT/HCPCS: 49505; 88302; C1781; J0690; J1100; J1885; J2250; J2405; J2704; J2795; J3010

== ENCOUNTER → 2024-01-30 09:08 | Outpatient (BNV) | payer MEDICARE, SELFPAY | PROVIDERS: PCP Physician Assistant; Visit Provider Surgery | DX: K40.90 Unilateral inguinal hernia, without obstruction or gangrene, not specified as recurrent (principal) | CPT/HCPCS: 49505 ==

== ENCOUNTER 2024-02-10 09:35 | Outpatient (AMB) | payer MEDICARE, SELFPAY ==
--- NOTE | 2024-02-10 09:44 | MHC.OFFVIS ---
Intake Visit Reasons: S/P LIH w/ mesh Intake Note: Patient here s/p LIH w/mesh. Reports incisions healing well. Patient c/o: tenderness due to allergy related cough. SX: 01-30-2024. Commercial Driver Required: No Accompanied by: Self / Same As Patient Allergies bee pollen Allergy (Intermediate, Verified 02/10/24 09:44) hives, itching Seasonal Allergies Allergy (Intermediate, Verified 02/10/24 09:44) Itchy Eyes lisinopril Adverse Reaction (Intermediate, Verified 02/10/24 09:44) Cough HPI Comments Details: Patient presents for follow-up. She has no wound issues or complaints. She has tolerating a diet. Having regular bowel habits. She is increasing her activity level. [facility] Medical History Inguinal hernia of left side without obstruction or gangrene Bronchitis Bleb, lung Osteoarthritis Anxiety Depression ADD (attention deficit disorder) Elevated cholesterol HTN (hypertension) Multiple sclerosis Surgical History Hx of hand surgery Hx of hysterectomy H/O colonoscopy History of total knee replacement (TKR) History of cosmetic surgery History of torn meniscus of right knee History of wisdom tooth extraction History of tonsillectomy Family History Father CAD (coronary artery disease) Mother Diabetes Hypertension Cancer Brother Multiple sclerosis Social History Housing: House Alcohol intake: never Comment: counts correct Patient Tobacco Use Status: Former Tobacco user Quit Date: 30 yrs ago Tobacco use type: Cigarette e-Cigarette/Vaping Use: Never Used Second Hand Smoke Exposure: No service: No Current occupational status: employed Current occupation: [employer]. Current occupational exposures/hazards: No Cognitive needs: No Hearing needs: No Vision needs: Yes (glasses ) Physical Exam GI Other: Abdomen is soft. Wound clean dry and intact healing very well Assessment & Plan Assessment & Plan (1) Status post hernia repair: Code(s): Z98.890 - Other specified postprocedural states; Z87.19 - Personal history of other diseases of the digestive system Category: Medical Plan Patient has been given local wound instructions, and will follow-up p.r.n.. All questions answered.
== END 2024-02-10 09:51 | disposition home or self-care (01) ==
PROVIDERS: PCP Physician Assistant; Visit Provider Surgery
DX: Z98.890 Other specified postprocedural states (principal); Z87.19 Personal history of other diseases of the digestive system
CPT/HCPCS: 99024

== ENCOUNTER → 2024-02-10 09:35 | Outpatient (BNVA) | payer MEDICARE, SELFPAY | PROVIDERS: PCP Physician Assistant; Visit Provider Surgery | DX: Z09 Encounter for follow-up examination after completed treatment for conditions other than malignant neoplasm (principal); Z98.890 Other specified postprocedural states; Z87.19 Personal history of other diseases of the digestive system | CPT/HCPCS: 99212 ==

== ENCOUNTER 2024-04-01 10:20 | Outpatient (AMB) | payer MEDICARE, SELFPAY ==
--- NOTE | 2024-04-01 10:21 | MHC.PC.OV ---
Vital Signs 04/01/24 10:22 Height 5 ft Weight 113 lb BMI 22.1 BP 124/70 Blood Pressure Location Lt brachial Position Sitting Pulse 74 Pulse Source Pulse Oximeter Pulse Oximetry (%) 97 Oxygen Delivery Method Room Air Intake Visit Reasons: Annual PE Intake Note: Patient here for an annual physical Advertising Account Representative Required: No Accompanied by: Self / Same As Patient Allergies bee pollen Allergy (Intermediate, Verified 04/01/24 10:25) hives, itching Seasonal Allergies Allergy (Intermediate, Verified 04/01/24 10:25) Itchy Eyes lisinopril Adverse Reaction (Intermediate, Verified 04/01/24 10:25) Cough Medication List - Last Reconciled 04/01/24 by Talha Lennon PA-C albuterol sulfate 90 mcg/actuation 2 puffs inhalation Q6H PRN amlodipine 10 mg PO DAILY baclofen 10 mg PO BEDTIME PRN bupropion HCl SR 100 mg PO DAILY 60 days cholecalciferol (vitamin D3) 25 mcg PO DAILY clonidine HCl 0.1 mg PO BID PRN dextroamphetamine-amphetamine 5 mg 1 tab PO DAILY PRN diphenhydramine HCl (Benadryl Allergy) 50 mg (2 x 25 mg) PO Q6H PRN 10 days epinephrine (EpiPen 2-Sherman) 0.3 mg (0.3 mL) IM Q10M PRN 30 days fluoxetine 40 mg PO DAILY 90 days gabapentin 100 mg PO TID PRN meloxicam 15 mg PO DAILY 90 days ofatumumab (Kesimpta Pen) 20 mg subcut QMONTH omega 7-zto-mty-fish oil 100-160-1,000 mg 1 cap PO DAILY trazodone 100 mg PO DAILY 90 days Tobacco use date assessed: 11/24/23 Fall risk assessment: No Falls in past year Last assessed Fall Risk: 04/01/24 Dental Screening Dental Screen Date: 04/01/24 Did you have a dental visit in the last 12 months?: Yes Did you have a dental problem in the last 6 months where you did not have access to dental care?: No Was dental information given to patient?: Patient has dentist HPI Annual PE HPI Details Sana is a 64-year-old female here today for routine annual physical. Patient has a past medical history significant for hypertension, vitamin-D deficiency, anxiety and depression. Concerns--> no huge concerns though continues to have some fatigue. Attributes this to both her medications in her MS disease. . Hypertension:? Blood pressure today in office acceptable.? She reports that home blood pressures have been stable.? She continues on amlodipine 10 mg with good effect. .. Major depressive disorder: She reports her depression has been stable, continues on fluoxetine 40 and Wellbutrin which has been a good combination for her.. ADD: She has been started on low-dose Adderall 5 mg to take as needed to help her attention and focus on her job tasks which has drastically improved her attention focus. She denies any side effects from the medication. . MS:? Patient continues to follow a neurologist at [facility] for her MS.? She is on MS stroke likely causing her leukopenia. Mammogram:? 12/09/2023 ( [facility]) which was normal Colonoscopy:? Done in 2023- normal Vaccines:? Up-to-date with COVID, pneumonia, tetanus and shingles vaccines, [facility] Medical History Bronchitis Bleb, lung Osteoarthritis Anxiety Depression ADD (attention deficit disorder) Elevated cholesterol HTN (hypertension) Multiple sclerosis Surgical History Inguinal hernia of left side without obstruction or gangrene Status post hernia repair Hx of hand surgery Hx of hysterectomy H/O colonoscopy History of total knee replacement (TKR) History of cosmetic surgery History of torn meniscus of right knee History of wisdom tooth extraction History of tonsillectomy Family History Father CAD (coronary artery disease) Mother Diabetes Hypertension Cancer Brother Multiple sclerosis Social History (Updated 04/01/24 @ 10:35 by Talha Lennon PA-C) Housing: House Alcohol intake: current Alcohol intake frequency: a few times a month Alcohol type: beer Comment: counts correct Patient Tobacco Use Status: Former Tobacco user Tobacco use type: Cigarette e-Cigarette/Vaping Use: Never Used Second Hand Smoke Exposure: No service: No Current occupational status: employed Current occupation: [employer]. Current occupational exposures/hazards: No Cognitive needs: No Hearing needs: No Vision needs: Yes (glasses ) Questionnaire PHQ-9 Over the last 2 weeks, how often have you been bothered by any of the following problems? 1. Little interest or pleasure in doing things: not at all 2. Feeling down, depressed, or hopeless: not at all 3. Trouble falling or staying asleep, or sleeping too much: not at all 4. Feeling tired or having little energy: not at all 5. Poor appetite or overeating: not at all 6. Feeling bad about yourself - or that you are a failure or have let yourself or your family down: not at all 7. Trouble concentrating on things, such as reading the newspaper or watching television: not at all 8. Moving or speaking so slowly that other people could have noticed. Or the opposite - being so fidgety or restless that you have been moving around a lot more than usual: not at all 9. Thoughts that you would be better off or of hurting yourself in some way: not at all Total score: 0 Depression Screening Interpretation: Negative Depression Screening Done: Yes 36991 - PHQ-9 Billing: Yes Source: Developed by Drs. Sarkis Guerrero, Dalila Rashid, Wayne Diehl and colleagues, with an educational ivory from [employer]. Thrive Questionnaire Date Thrive assessed: 04/01/24 I am a: Patient What is your living situation today?: I have a steady place to live Within the past 12 months, did the food you bought not last and you didn't have the money to get more?: Never true Within the past 12 months, did you worry whether your food would run out before you got money to buy more?: Never true Do you have trouble paying for medicines?: No Do you have trouble getting transportation to medical appointments?: No Do you have trouble paying your heating and electricity bill?: No Do you have trouble taking care of your child, family member or friend?: No Do you have trouble with day-to-day activities such as bathing, preparing meals, shopping, managing finances, etc.?: No Are you currently unemployed and looking for a job?: No Are you interested in more education?: No Please select the resources that you would like help with: None Currently or been in a relationship where the following occur: no concerns reported THRIVE Score: 0 AUDIT C Alcohol Use Questionnaire (AUDIT-C) 1. How often do you have a drink containing alcohol?: Monthly or less 2. How many drinks containing alcohol do you have on a typical day when you are drinking?: 1 or 2 3. How often do you have six or more drinks on one occasion?: Never Total Score: 1 RED-7 AMB Questionnaire RED-7 Date RED - 7 assessed: 04/01/24 Feeling nervous, anxious, or on edge: 0 = Not at all Not being able to stop or control worryin = Not at all Worrying too much about different things: 0 = Not at all Trouble relaxin = Not at all Being so restless that it is hard to sit still: 0 = Not at all Becoming easily annoyed or irritable: 0 = Not at all Feeling afraid as if something awful might happen: 0 = Not at all Total RED-7 score (0-4 normal; 5-9 mild; 10-14 moderate; 15-21 severe): 0 Source: Developed by Drs. Sarkis Guerrero, Dalila Rashid, Wayne Diehl and colleagues, with an educational ivory from [employer]. RED-7 Assessment Billing RED-7 Assessment Tool: RED-7 Assessment 14666 Review of Systems Const Denies body aches, Denies chills, Denies excessive sweating, Denies fatigue, Denies fever(s) and Denies headache(s) Eyes Denies blurry vision ENT Denies dysphagia, Denies vertigo, Denies dizziness, Denies headache(s), Denies hearing loss and Denies tinnitus Card Denies chest pain, Denies chest pain with activity, Denies syncope, Denies irregular heart rhythm and Denies dyspnea Resp Denies chest congestion, Denies cough, Denies hemoptysis, Denies dyspnea and Denies wheezing GI Denies abdominal pain, Denies melena, Denies hematochezia, Denies coffee ground emesis, Denies dysphagia, Denies diarrhea, Denies nausea and Denies vomiting Denies urinary frequency, Denies dysuria, Denies urinary hesitancy and Denies urinary urgency Musc Denies arthralgias, Denies limited range of motion, Denies muscle cramps and Denies muscle weakness Skin/Breast Denies rash and Denies skin ulcer Neuro Denies Abnormal speech present, Denies confusion, Denies vertigo, Denies dizziness, Denies syncope, Denies headache(s), Denies memory loss and Denies seizure-like activity Psych Denies anxiety, Denies confusion, Denies depression, Denies memory loss, Denies panic attacks and Denies paranoia Endo Denies excessive sweating, Denies fatigue, Denies flushing, Denies polydipsia and Denies polyuria Aller/Immun Denies wheezing Physical exam (Primary Care) BMI result Body Mass Index 22.1 Tobacco/Smoking Status: Tobacco use Status Tobacco use date assessed 11/24/23 04/01/24 10:23 Patient Tobacco Use Status Former Tobacco user 04/01/24 10:28 Tobacco use type Cigarette 04/01/24 10:28 e-Cigarette/Vaping Use Never Used 04/01/24 10:28 Depression Screening Interpretation: Negative Thrive Assessment: Date of Thrive Assessment Date Thrive assessed 12/03/23 04/01/24 10:23 Currently or been in a relationship where the following occur: no concerns reported Const General: cooperative, comfortable, no acute distress, alert and awake; No confusion Orientation/consciousness: oriented to person, oriented to place, patient oriented x3 and No confusion HENMT Head: Yes normocephalic Ears: external ears normal and TM's normal bilaterally Face and sinus: No sinus tenderness Mouth: Normal oral and palatal mucosa present and tongue normal Teeth and gingiva: dentition normal and gingiva normal Throat: Yes posterior oropharynx normal, Yes tonsils normal and Yes uvula midline Eyes Conjunctivae: conjunctivae normal Sclerae: sclerae normal Pupils: Equal, round and reactive pupils present EOM: EOMs intact bilaterally Direct Ophthalmoscopy: No no photophobia Neck Neck: Yes no lymphadenopathy, No tender and Yes no JVD Thyroid: Thyroid normal Carotids: no bruits Chest Chest palpation & inspection: no tenderness Resp Effort & Inspection: normal respiratory effort, no audible wheezes, not labored and no stridor Auscultation: no crackles, no rales, no rhonchi and no wheezes Cardio Jugular venous distension: no JVD Rate: regular rate, not bradycardic and not tachycardic Rhythm: regular rhythm Bruits: no carotid bruits Peripheral pulses: Peripheral pulses 2+ throughout GI Inspection: Yes normal to inspection, No abdominal wall ecchymosis and No visible herniation Palpation (GI): Soft to palpation, nontender, no guarding, not rigid and No hepatosplenomegaly present Auscultation: normoactive bowel sounds General: Yes no CVA tenderness Back/Spine/Pelvis Back: no CVA tenderness and No back tenderness Cervical Spine: cervical ROM normal Thoracic/Lumbar Spine: thoracic and lumbar spine normal to inspection, straight leg raise negative bilaterally, No thoraco-lumbar ROM limited and No lumbar spinal tenderness Skin Lesions: no lesions Rashes: no rashes Wounds: no wounds Neuro General: oriented to person, oriented to place, patient oriented x3, CN's II-XI intact bilaterally and No confusion Cranial nerves: Yes Equal, round and reactive pupils present and Yes Normal accommodation reflex present Cognition (Neuro): normal cognition Speech: No Abnormal speech present Gait exam (Neuro): Normal gait present Motor exam (neuro): 5/5 motor strength present throughout Extrem Right upper extremity: full ROM; no cyanosis Left upper extremity: full ROM; no cyanosis Right lower extremity: no edema Left lower extremity: no edema Psych Appearance: grossly normal Mental Status: mental status grossly normal Affect: normal affect Attitude: cooperative Thought process: Normal thought process present Assessment and Plan Assessment & Plan (1) Annual physical exam: Code(s): Z00.00 - Encounter for general adult medical examination without abnormal findings (2) ADD (attention deficit disorder): Code(s): F98.8 - Other specified behavioral and emotional disorders with onset usually occurring in childhood and adolescence Qualifiers: Hyperactivity presence: present Attention deficit-hyperactivity disorder type: predominantly inattentive Qualified Code(s): F90.0 - Attention-deficit hyperactivity disorder, predominantly inattentive type Plan: Continues on low-dose Adderall 5 mg as needed for work days. She denies any side effect of sleeping issues or appetite suppressing. (3) MDD (major depressive disorder), recurrent episode, moderate: Code(s): F33.1 - Major depressive disorder, recurrent, moderate Plan: Again patient restarted SSRI with combination Wellbutrin therapy which has been very effective for her. (4) RED (generalized anxiety disorder): Code(s): F41.1 - Generalized anxiety disorder Plan: Has restarted SSRI therapy which has been effective for her. (5) HTN (hypertension): Code(s): I10 - Essential (primary) hypertension Qualifiers: Hypertension type: essential hypertension Qualified Code(s): I10 - Essential (primary) hypertension Plan: Patient's blood pressure acceptable today in office. She continues with amlodipine 10 mg with good effect on her blood pressure. Goal blood pressures to remain below 140/90 (6) Multiple sclerosis: Code(s): G35 - Multiple sclerosis Plan: Patient continues to follow neurology and continues on injection therapy. She reports her MS symptoms have been stable She has had neuro imaging that does not show any progression in her demyelinating disease. (7) HLD (hyperlipidemia): Code(s): E78.5 - Hyperlipidemia, unspecified Qualifiers: Hyperlipidemia type: mixed hyperlipidemia Qualified Code(s): E78.2 - Mixed hyperlipidemia Plan: Patient does have a history of borderline high cholesterol. Will continue to manage with diet and exercise. Goal LDL is to remain below 160 Orders: Orders Comprehensive [place]. Panel Fast 6 Months I10 - Essential (primary) hypertension Lipid Panel 6 Months E78.2 - Mixed hyperlipidemia Complete Blood Count no Diff 6 Months E78.2 - Mixed hyperlipidemia Medications: Refilled epinephrine (EpiPen 2-Sherman) for 2 doses. 0.3 mg (0.3 mL) IM Q10M 30 days PRN 2 ea 1RF anaphylaxis Patient Instructions: Goal: Blood pressure to remain below 140/90 Barriers: Adherence to physical activity and healthy eating habits Coding Level of Care Code Est Pt Prev Care >65y(59911) Diagnoses Annual physical exam Z00.00 Attention deficit hyperactivity disorder (ADHD), predominantly inattentive type F90.0 Hyperactivity presence: present Attention deficit-hyperactivity disorder type: predominantly inattentive MDD (major depressive disorder), recurrent episode, moderate F33.1 RED (generalized anxiety disorder) F41.1 Essential hypertension I10 Hypertension type: essential hypertension Multiple sclerosis G35 Mixed hyperlipidemia E78.2 Hyperlipidemia type: mixed hyperlipidemia Additional Codes RED-7 Assessment Billing - RED-7 Assessment Tool: RED-7 Assessment [id number] ([id number])
[2024-04-01 10:22] VITALS: BP 124/70; PULSE 74; O2SAT 97; BMI 22.1
== END 2024-04-01 10:58 | disposition home or self-care (01) ==
PROVIDERS: PCP Physician Assistant; Visit Provider Physician Assistant
DX: Z00.00 Encounter for general adult medical examination without abnormal findings (principal); F33.1 Major depressive disorder, recurrent, moderate; G35 Multiple sclerosis; F90.0 Attention-deficit hyperactivity disorder, predominantly inattentive type; F41.1 Generalized anxiety disorder; I10 Essential (primary) hypertension; E78.2 Mixed hyperlipidemia
CPT/HCPCS: 99397

== ENCOUNTER 2024-05-04 08:05 | Outpatient (REF) | payer MEDICARE, SELFPAY ==
[2024-05-04 11:42] LABS: Hematocrit 41.2 % (37.0-47.0); Hemoglobin 13.4 g/dl (12.0-16.0); Mean Corpuscular HGB Conc 32.5 g/dl (31.0-35.0); Mean Corpuscular Hemoglobin 29.3 pg (27.0-33.0); Mean Platelet Volume 10.3 fL (9.4-12.3); Platelet Count 325 X10*3/uL (160-400); Red Blood Count 4.58 X10*6/uL (4.20-5.50); Red Cell Distribution Width 12.5 % (11.0-16.0); White Blood Count 4.6 X10*3/uL (4.8-10.8)
[2024-05-04 11:51] LABS: Alanine Aminotransferase 17 U/L (0-31); Albumin Level 4.3 g/dL (3.5-5.0); Alkaline Phosphatase 64 U/L (39-117); Anion Gap 13 (12-20); Aspartate Amino Transferase 17 U/L (5-31); Bilirubin Total 0.8 mg/dL (0.0-1.0); Blood Urea Nitrogen 16 mg/dL (9-16); Calcium 9.8 mg/dL (8.4-10.2); Carbon Dioxide 27 mmol/L (22-29); Chloride 104 mmol/L (96-108); Cholesterol 241 mg/dL (<200); Estimated Glomerular Filt Rate > 60; Glucose Fasting 87 mg/dL (60-99); HDL Cholesterol 83 mg/dL (>40); LDL Cholesterol Calculated 142 mg/dL (<100); Potassium 4.1 mmol/L (3.3-5.1); Sodium 140 mmol/L (135-145); Total Protein 6.6 g/dL (6.5-8.0); Triglycerides 80 mg/dL (<150)
[2024-05-04 14:33] LABS: Creatinine Urine 93.03 mg/dL; Microalbum/Creatinine Ratio Ur 10.7 ug/mg cr (<30)
== END 2024-05-04 08:06 | disposition home or self-care (01) ==
LOC: HO.WFDLDS 08:05
PROVIDERS: Visit Provider Physician Assistant
DX: I10 Essential (primary) hypertension (principal); E78.2 Mixed hyperlipidemia; D72.819 Decreased white blood cell count, unspecified
CPT/HCPCS: 36415; 80053; 80061; 82043; 82570; 85027

== ENCOUNTER 2024-06-07 11:26 | Emergency (ER) | payer MEDICARE, SELFPAY ==
--- NOTE | ~2024-06-07 | XR_ITS ---
EXAMINATION: XR CHEST CLINICAL INFORMATION: Chest pain COMPARISON: 12/06/2021 TECHNIQUE: 2 views of the chest were obtained. FINDINGS: Lungs are chronically mildly hyperexpanded. No acute findings. No consolidation, pleural effusion or pneumothorax. Cardiac silhouette is normal in size. The hilar contours are normal. Mild dextrocurvature of the thoracic spine. No acute osseous abnormality. XR/XR chest 2V IMPRESSION: No acute pulmonary disease.
--- NOTE | 2024-06-07 11:29 | ECG_ITS ---
Test Reason : CHEST PAIN Blood Pressure : / mmHG Vent. Rate : 079 BPM Atrial Rate : 079 BPM P-R Int : 130 ms QRS Dur : 074 ms QT Int : 364 ms P-R-T Axes : 070 057 070 degrees QTc Int : 417 ms Normal sinus rhythm Possible Left atrial enlargement Borderline ECG No previous ECGs available Referred By: Generic ED Physician Electronically Signed By:SABINA CMKEON
[2024-06-07 12:08] VITALS: BP 186/98; PULSE 86; RESP 16; TEMP 37; O2SAT 97; BMI 21.5
--- NOTE | 2024-06-07 12:08 | ED_ITS ---
HPI - Chest Pain General Chief Complaint: Headache Stated Complaint: Chest Pain Since Last Night Related Data Home Medications ?Medication ?Instructions ?Recorded ?Confirmed cholecalciferol (vitamin D3) 25 25 mcg PO DAILY 11/14/20 04/01/24 mcg (1,000 unit) capsule gabapentin 100 mg capsule 100 mg PO TID PRN Pain 11/14/20 04/01/24 omega 5-jbv-ial-fish oil 100 1 cap PO DAILY 05/24/21 04/01/24 mg-160 mg-1,000 mg capsule ofatumumab 20 mg/0.4 mL 20 mg subcut QMONTH 11/27/21 04/01/24 subcutaneous pen injector (Kesimpta Pen) baclofen 10 mg tablet 10 mg PO BEDTIME PRN Muscle Pain 01/30/24 04/01/24 clonidine HCl 0.1 mg tablet 0.1 mg PO BID PRN adhd 01/30/24 04/01/24 dextroamphetamine-amphetamine 5 mg 1 tab PO DAILY PRN attention 01/30/24 04/01/24 tablet deficit hyperactivity disorder Previous Rx's ?Medication ?Instructions ?Recorded diphenhydramine HCl 25 mg tablet 50 mg (2 x 25 mg) PO Q6H PRN 07/26/21 (Benadryl Allergy) allergy symptoms 10 days #40 tabs albuterol sulfate 90 mcg/actuation 2 puff inhalation Q6H PRN 02/08/22 aerosol inhaler shortness of breath or wheezing #8.5 grams amlodipine 10 mg tablet 10 mg PO DAILY #90 tabs 08/10/23 meloxicam 15 mg tablet 15 mg PO DAILY 90 days #90 tabs 08/10/23 trazodone 100 mg tablet 100 mg PO DAILY 90 days #90 tabs 01/13/24 fluoxetine 40 mg capsule 40 mg PO DAILY 90 days #90 caps 03/18/24 epinephrine 0.3 mg/0.3 mL 0.3 mg (0.3 mL) IM Q10M PRN 04/01/24 injection, auto-injector (EpiPen anaphylaxis 30 days #2 ea 2-Sherman) bupropion HCl 100 mg tablet,12 hr 100 mg PO DAILY 60 days #60 tabs 06/04/24 sustained-release Allergies Allergy/AdvReac Type Severity Reaction Status Date / Time bee pollen Allergy Intermediate hives, Verified 06/07/24 12:11 itching Seasonal Allergies Allergy Intermediate Itchy Eyes Verified 06/07/24 12:11 lisinopril AdvReac Intermediate Cough Verified 06/07/24 12:11 PMFSH Past Medical History Medical History Bronchitis Bleb, lung Osteoarthritis Anxiety Depression ADD (attention deficit disorder) Elevated cholesterol HTN (hypertension) Multiple sclerosis Surgical History Inguinal hernia of left side without obstruction or gangrene Status post hernia repair Hx of hand surgery Hx of hysterectomy H/O colonoscopy History of total knee replacement (TKR) History of cosmetic surgery History of torn meniscus of right knee History of wisdom tooth extraction History of tonsillectomy Family History Family History Father CAD (coronary artery disease) Mother Diabetes Hypertension Cancer Brother Multiple sclerosis Social History Social History (Updated 04/01/24 @ 10:35 by Talha Lennon PA-C) Housing: House Alcohol intake: current Alcohol intake frequency: a few times a month Alcohol type: beer Comment: counts correct Patient Tobacco Use Status: Former Tobacco user Tobacco use type: Cigarette e-Cigarette/Vaping Use: Never Used Second Hand Smoke Exposure: No Advance Directives: No Advance Directives Information Provided: No service: No Current occupational status: employed Current occupation: [employer]. Current occupational exposures/hazards: No Cognitive needs: No Hearing needs: No Vision needs: Yes (glasses ) Physical Exam 2 Vital Signs: Vital Signs: Last Vital Signs Temp 98.1 F 06/07/24 18:00 Pulse 72 06/07/24 18:00 Resp 18 06/07/24 18:00 BP 163/81 H 06/07/24 18:00 Pulse Ox 97 06/07/24 18:00 O2 Del Method Room Air 06/07/24 18:00 BMI result Body Mass Index 21.5 Course Course Course Narrative: This is a Rapid Medical Examination (RME) performed by Joseph Huggins PA-C in triage. Full HPI, ROS, assessment and treatment plan per primary provider in the Main ED. 64 yo female with history of HTN, HLD, former smoker, MS, anxiety presents to the ER for evaluation of intermittent, dull chest pain on the left side that lasted about 30 minutes that started last night about 5pm. Woke up in the middle of the night with right sided chest pain that took her breath away along with throat pain. No SOB. Went to work this morning and developed lightheadedness and left sided headache. Exam: Hypertensive to 180s in triage. Appears well, no distress. Lungs are clear throughout, no peripheral edema in the LE. Steady gait and grossly nonfocal. to go to until treatment room available. Plan: EKG, CXR, labs Reevaluation(s) Reevaluation #1: patient left the prior to completing treatment Medical Decision Making Lab Data 06/07/24 13:13 06/07/24 13:13 Labs: Lab Results 06/07/24 Range/Units 13:13 WBC 8.9 (4.8-10.8) X10*3/uL RBC 4.84 (4.20-5.50) X10*6/uL Hgb 14.5 (12.0-16.0) g/dl Hct 43.2 (37.0-47.0) % MCV 89.3 (80.0-98.0) fL MCH 30.0 (27.0-33.0) pg MCHC 33.6 (31.0-35.0) g/dl RDW 12.7 (11.0-16.0) % Plt Count 320 (160-400) X10*3/uL MPV 10.1 (9.4-12.3) fL Immature Gran % (Auto) 0.5 H (0.0-0.4) % Neut % (Auto) 77.0 H (45-73) % Lymph % (Auto) 13.3 L (20-40) % [place] % (Auto) 8.0 (2-11) % Eos % (Auto) 0.6 (0-4) % Baso % (Auto) 0.6 (0-2) % Lymph # (Auto) 1.2 (1.2-4.9) X10*3/uL [place] # (Auto) 0.7 (0.1-1.2) X10*3/uL Eos # (Auto) 0.1 (0.0-0.4) X10*3/uL Baso # (Auto) 0.1 (0.0-0.2) X10*3/uL Abs Immat Gran (auto) 0.04 H (0.00-0.03) X10*3/uL Absolute Neuts (auto) 6.8 (2.0-8.3) x10*3/uL Absolute Nucleated RBC 0.000 (0.0-0.012) X10*3/uL Nucleated RBC % (auto) 0.0 (0.0-0.2) /100WBC Sodium 140 (135-145) mmol/L Potassium 4.8 (3.3-5.1) mmol/L Chloride 104 (96-108) mmol/L Carbon Dioxide 25 (22-29) mmol/L Anion Gap 16 (12-20) BUN 15 (9-16) mg/dL Creatinine 0.84 (0.5-1.4) mg/dL Estim Creat Clear Calc 47.3 Estimated GFR > 60 Random Glucose 94 (60-115) mg/dL Calcium 10.5 H D (8.4-10.2) mg/dL Magnesium 2.4 (1.6-2.6) mg/dL Total Bilirubin 0.4 (0.0-1.0) mg/dL Direct Bilirubin 0.1 (0.0-0.5) mg/dL AST 20 (5-31) U/L ALT 21 (0-31) U/L Alkaline Phosphatase 85 (39-117) U/L Troponin I High Sens < 2.7 (<3.5-17.0) ng/L Total Protein 7.7 (6.5-8.0) g/dL Albumin 4.9 (3.5-5.0) g/dL COVID-19 ([facility]UE) Negative (Negative) COVID-19 Clin Com See Note Discharge Plan Discharge Clinical Impression: Chest pain Patient Disposition: Left W/O Completing Treatment Prescriptions: No Action albuterol sulfate 90 mcg/actuation HFA aerosol inhaler 2 puff inhalation Q6H PRN (Reason: shortness of breath or wheezing) Qty: 8.5 1RF meloxicam 15 mg tablet 15 mg PO DAILY 90 Days Qty: 90 1RF amlodipine 10 mg tablet 10 mg PO DAILY Qty: 90 2RF trazodone 100 mg tablet 100 mg PO DAILY 90 Days Qty: 90 2RF fluoxetine 40 mg capsule 40 mg PO DAILY 90 Days Qty: 90 2RF bupropion HCl 100 mg tablet sustained-release 12 hr 100 mg PO DAILY 60 Days Qty: 60 2RF clonidine HCl 0.1 mg tablet 0.1 mg PO BID PRN (Reason: adhd) baclofen 10 mg tablet 10 mg PO BEDTIME PRN (Reason: Muscle Pain) dextroamphetamine-amphetamine 5 mg tablet 1 tab PO DAILY PRN (Reason: attention deficit hyperactivity disorder) gabapentin 100 mg capsule 100 mg PO TID PRN (Reason: Pain) cholecalciferol (vitamin D3) 25 mcg (1,000 unit) capsule 25 mcg PO DAILY omega 0-mdm-xbf-fish oil 100-160-1,000 mg capsule 1 cap PO DAILY Kesimpta Pen 20 mg/0.4 mL pen injector 20 mg subcut QMONTH epinephrine [EpiPen 2-Sherman] 0.3 mg/0.3 mL auto-injector 0.3 mg IM Q10M PRN (Reason: anaphylaxis) 30 Days Qty: 2 1RF Rx Instructions: for 2 doses. diphenhydramine HCl [Benadryl Allergy] 25 mg tablet 50 mg PO Q6H PRN (Reason: allergy symptoms) 10 Days Qty: 40 0RF Discharge Date/Time: 06/07/24 20:44
[2024-06-07 13:18] LABS: MANUAL DIFF FLAG NO
[2024-06-07 13:19] LABS: Basophils Absolute Auto 0.1 X10*3/uL (0.0-0.2); Basophils Percent Auto 0.6 % (0-2); Eosinophils Absolute Auto 0.1 X10*3/uL (0.0-0.4); Eosinophils Percent Auto 0.6 % (0-4); Hematocrit 43.2 % (37.0-47.0); Hemoglobin 14.5 g/dl (12.0-16.0); Imm Gran Abs Auto 0.04 X10*3/uL (0.00-0.03); Imm Gran Pct Auto 0.5 % (0.0-0.4); Lymphocytes Absolute Auto 1.2 X10*3/uL (1.2-4.9); Lymphocytes Percent Auto 13.3 % (20-40); Mean Corpuscular HGB Conc 33.6 g/dl (31.0-35.0); Mean Corpuscular Volume 89.3 fL (80.0-98.0); Mean Platelet Volume 10.1 fL (9.4-12.3); Monocytes Absolute Auto 0.7 X10*3/uL (0.1-1.2); Neutrophils Absolute Auto 6.8 x10*3/uL (2.0-8.3); Platelet Count 320 X10*3/uL (160-400); Red Blood Count 4.84 X10*6/uL (4.20-5.50); Red Cell Distribution Width 12.7 % (11.0-16.0); White Blood Count 8.9 X10*3/uL (4.8-10.8)
[2024-06-07 13:32] LABS: Alanine Aminotransferase 21 U/L (0-31); Albumin Level 4.9 g/dL (3.5-5.0); Alkaline Phosphatase 85 U/L (39-117); Anion Gap 16 (12-20); Aspartate Amino Transferase 20 U/L (5-31); Bilirubin Direct 0.1 mg/dL (0.0-0.5); Bilirubin Total 0.4 mg/dL (0.0-1.0); Blood Urea Nitrogen 15 mg/dL (9-16); Calcium 10.5 mg/dL (8.4-10.2); Carbon Dioxide 25 mmol/L (22-29); Chloride 104 mmol/L (96-108); Creatinine Clr Calc Pharmacy 47.3; Estimated Glomerular Filt Rate > 60; Glucose Random 94 mg/dL (60-115); Magnesium 2.4 mg/dL (1.6-2.6); Potassium 4.8 mmol/L (3.3-5.1); Sodium 140 mmol/L (135-145); Total Protein 7.7 g/dL (6.5-8.0)
[2024-06-07 13:40] LABS: Troponin-I High Sensitivity < 2.7 ng/L (<3.5-17.0)
[2024-06-07 13:51] LABS: COVID-19 Test Negative (Negative); IDNOW Serial# 9DB6401D
[2024-06-07 18:00] VITALS: BP 163/81; PULSE 72; RESP 18; TEMP 36.7; O2SAT 97
== END 2024-06-07 20:44 | disposition left against medical advice (07) ==
LOC: HO.ED 20:26
PROVIDERS: Physician Assistant; Emergency Provider Emergency Medicine; PCP Physician Assistant
DX: R07.9 Chest pain, unspecified (principal); I10 Essential (primary) hypertension; E78.5 Hyperlipidemia, unspecified; G35 Multiple sclerosis; Z87.891 Personal history of nicotine dependence; Z11.52 Encounter for screening for COVID-19
CPT/HCPCS: 71046; 80048; 80076; 83735; 84484; 85025; 87635; 93005; 99283

== ENCOUNTER 2024-09-20 08:46 | Outpatient (REF) | payer MEDICARE, SELFPAY ==
[2024-09-20 11:14] LABS: Appearance Urine Clear; Color Urine Yellow; Glucose Urine UA Negative (Negative); Leukocyte Esterase Urine Trace (Negative); Nitrite Urine Negative (Negative); Specific Gravity - Urine 1.025 (1.005-1.025); UMIC TRIGGER UACC YES; Urine Blood Negative (Negative); Urine Ketones Negative (Negative); Urine Protein Negative (Neg-Trace)
[2024-09-20 11:21] LABS: Bacteria Urine None Seen (None Seen); Hyaline Casts Urine 0-2 /LPF (0-2); RBC Urine 0-2 /HPF (0-2); Squamous Epithelial Cell Urine 0-2 /HPF (0-2); WBC Urine 0-5 /HPF (0-5)
[2024-09-20 11:23] LABS: Hematocrit 39.6 % (37.0-47.0); Hemoglobin 12.9 g/dl (12.0-16.0); Mean Corpuscular HGB Conc 32.6 g/dl (31.0-35.0); Mean Corpuscular Hemoglobin 29.7 pg (27.0-33.0); Mean Platelet Volume 10.7 fL (9.4-12.3); Platelet Count 282 X10*3/uL (160-400); Red Blood Count 4.35 X10*6/uL (4.20-5.50); Red Cell Distribution Width 12.4 % (11.0-16.0); White Blood Count 3.8 X10*3/uL (4.8-10.8)
[2024-09-20 11:57] LABS: Alanine Aminotransferase 26 U/L (0-31); Albumin Level 4.2 g/dL (3.5-5.0); Alkaline Phosphatase 66 U/L (39-117); Anion Gap 7 (12-20); Aspartate Amino Transferase 28 U/L (5-31); Bilirubin Total 0.6 mg/dL (0.0-1.0); Blood Urea Nitrogen 23 mg/dL (9-16); Calcium 9.5 mg/dL (8.4-10.2); Carbon Dioxide 29 mmol/L (22-29); Chloride 107 mmol/L (96-108); Cholesterol 247 mg/dL (<200); Estimated Glomerular Filt Rate > 60; Glucose Fasting 85 mg/dL (60-99); HDL Cholesterol 86 mg/dL (>40); LDL Cholesterol Calculated 149 mg/dL (<100); Potassium 4.3 mmol/L (3.3-5.1); Sodium 139 mmol/L (135-145); Total Protein 6.4 g/dL (6.5-8.0); Triglycerides 61 mg/dL (<150)
== END 2024-09-20 08:47 | disposition home or self-care (01) ==
LOC: HO.WFDLDS 08:46
PROVIDERS: Visit Provider Physician Assistant
DX: E78.2 Mixed hyperlipidemia (principal); I10 Essential (primary) hypertension
CPT/HCPCS: 36415; 80053; 80061; 81001; 85027

== ENCOUNTER 2024-12-06 10:59 | Outpatient (AMB) | payer MEDICARE, SELFPAY ==
[2024-12-06 11:02] VITALS: BP 114/64; PULSE 64; TEMP 36.3; O2SAT 97; BMI 21.7
--- NOTE | 2024-12-06 11:02 | A.OFFPC_ITS ---
Vital Signs 12/06/24 11:02 Height 5 ft Weight 111 lb 2 oz BMI 21.7 BP 114/64 Blood Pressure Location Lt brachial Position Sitting Pulse 64 Pulse Source Pulse Oximeter Temp 97.3 F Temp Source Temporal Artery Scan Pulse Oximetry (%) 97 Oxygen Delivery Method Room Air Intake Visit Reasons: 6mth f/u Intake Note: The patient is here for coughing, chest congestion, fatigue, one episode of vomiting, and mild diarrhea after returning from a cruise. The patient visited a walk-in clinic but was not tested. Prior Authorization Technician Required: No Accompanied by: Self / Same As Patient Allergies bee pollen Allergy (Intermediate, Verified 12/06/24 11:13) hives, itching Seasonal Allergies Allergy (Intermediate, Verified 12/06/24 11:13) Itchy Eyes lisinopril Adverse Reaction (Intermediate, Verified 12/06/24 11:13) Cough Medication List - Last Reconciled 12/06/24 by Talha Lennon PA-C albuterol sulfate 90 mcg/actuation 2 puffs inhalation Q6H PRN amlodipine 10 mg PO DAILY baclofen 10 mg PO BEDTIME 30 days bupropion HCl SR 100 mg PO DAILY 60 days cholecalciferol (vitamin D3) 25 mcg PO DAILY clonidine HCl 0.1 mg PO BID PRN dextroamphetamine-amphetamine 10 mg ER PO QAM diphenhydramine HCl (Benadryl Allergy) 50 mg (2 x 25 mg) PO Q6H PRN 10 days epinephrine (EpiPen 2-Sherman) 0.3 mg (0.3 mL) IM Q10M PRN 30 days fluoxetine 40 mg PO DAILY 90 days gabapentin 100 mg PO TID PRN meloxicam 15 mg PO DAILY 90 days ofatumumab (Kesimpta Pen) 20 mg subcut QMONTH omega 4-tea-wti-fish oil 100-160-1,000 mg 1 cap PO DAILY trazodone 100 mg PO DAILY 90 days Tobacco use date assessed: 12/06/24 Fall risk assessment: No Falls in past year Last assessed Fall Risk: 12/06/24 Dental Screening Dental Screen Date: 12/06/24 Did you have a dental visit in the last 12 months?: No Did you have a dental problem in the last 6 months where you did not have access to dental care?: No Was dental information given to patient?: Patient has dentist HPI 6mth f/u HPI Details Sana is a 64-year-old female here today for follow-up visit. Patient has a past medical history significant for hypertension, vitamin-D deficiency, anxiety and depression. Concerns--> patient reports persistent viral symptoms following a recent cruise. The onset of symptoms began just before the cruise concluded, around November 22 or , with initial refusal to eat, hand swelling, and cough. By November 25, after returning home, she experienced increased exhaustion and suspected COVID-19, despite two negative tests. Her symptoms, including fatigue, anorexia, body aches, and chills, persisted, leading to a flu diagnosis. The patient mentions previous influenza-like symptoms returning home from the cruise. Her medical history includes an established diagnosis of Multiple Sclerosis, contributing to prolonged recovery. Another medical visit did not reveal any positive diagnostic tests, leaving the cause unclear but likely viral. . Hypertension:? Blood pressure today in office acceptable.? She reports that home blood pressures have been stable.? She continues on amlodipine 10 mg with good effect. .. Major depressive disorder: She reports her depression has been stable, continues on fluoxetine 40 and Wellbutrin which has been a good combination for her.. ADD: Patient now seeing a psychiatrist and her Adderall was increased to 10 mg recently.. She reports good focus and attention on job detail tasks with stimulant ADHD medication. . MS:? Patient continues to follow a neurologist at [facility] for her MS.? She is on MS stroke likely causing her leukopenia. Laboratory Tests 05/04/24 09/20/24 08:06 08:47 Cholesterol 241 H 247 H [facility] Medical History (Updated 12/06/24 @ 12:44 by Talha Lennon PA-C) Tubular adenoma of colon Bronchitis Bleb, lung Osteoarthritis Anxiety Depression ADD (attention deficit disorder) Elevated cholesterol HTN (hypertension) Multiple sclerosis Surgical History (Updated 12/06/24 @ 12:44 by Talha Lennon PA-C) Hx of hand surgery Hx of hysterectomy H/O colonoscopy History of total knee replacement (TKR) History of cosmetic surgery History of torn meniscus of right knee History of wisdom tooth extraction History of tonsillectomy Family History Father CAD (coronary artery disease) Mother Diabetes Hypertension Cancer Brother Multiple sclerosis Social History Housing: House Alcohol intake: current Alcohol intake frequency: a few times a month Alcohol type: beer Comment: counts correct Patient Tobacco Use Status: Former Tobacco user Tobacco use type: Cigarette e-Cigarette/Vaping Use: Never Used Second Hand Smoke Exposure: No service: No Current occupational status: employed Current occupation: [employer]. Current occupational exposures/hazards: No Cognitive needs: No Hearing needs: No Vision needs: Yes (glasses ) Questionnaire PHQ-9 Over the last 2 weeks, how often have you been bothered by any of the following problems? 1. Little interest or pleasure in doing things: not at all 2. Feeling down, depressed, or hopeless: not at all 3. Trouble falling or staying asleep, or sleeping too much: not at all 4. Feeling tired or having little energy: not at all 5. Poor appetite or overeating: not at all 6. Feeling bad about yourself - or that you are a failure or have let yourself or your family down: not at all 7. Trouble concentrating on things, such as reading the newspaper or watching television: not at all 8. Moving or speaking so slowly that other people could have noticed. Or the opposite - being so fidgety or restless that you have been moving around a lot more than usual: not at all 9. Thoughts that you would be better off or of hurting yourself in some way: not at all Total score: 0 Depression Screening Interpretation: Negative Depression Screening Done: Yes 76669 - PHQ-9 Billing: Yes Source: Developed by Drs. Sarkis Guerrero, Dalila Rashid, Wayne Diehl and colleagues, with an educational ivory from [employer]. Thrive Questionnaire Date Thrive assessed: 12/06/24 I am a: Patient What is your living situation today?: I have a steady place to live Within the past 12 months, did the food you bought not last and you didn't have the money to get more?: Never true Within the past 12 months, did you worry whether your food would run out before you got money to buy more?: Never true Do you have trouble paying for medicines?: No Do you have trouble getting transportation to medical appointments?: No Do you have trouble paying your heating and electricity bill?: No Do you have trouble taking care of your child, family member or friend?: No Do you have trouble with day-to-day activities such as bathing, preparing meals, shopping, managing finances, etc.?: No Are you currently unemployed and looking for a job?: No Are you interested in more education?: No Please select the resources that you would like help with: None Currently or been in a relationship where the following occur: No concerns reported THRIVE Score: 0 AUDIT C Alcohol Use Questionnaire (AUDIT-C) 1. How often do you have a drink containing alcohol?: Monthly or less 2. How many drinks containing alcohol do you have on a typical day when you are drinking?: 1 or 2 3. How often do you have six or more drinks on one occasion?: Never Total Score: 1 RED-7 AMB Questionnaire RED-7 Date RED - 7 assessed: 12/06/24 Feeling nervous, anxious, or on edge: 0 = Not at all Not being able to stop or control worryin = Not at all Worrying too much about different things: 0 = Not at all Trouble relaxin = Not at all Being so restless that it is hard to sit still: 0 = Not at all Becoming easily annoyed or irritable: 0 = Not at all Feeling afraid as if something awful might happen: 0 = Not at all Total RED-7 score (0-4 normal; 5-9 mild; 10-14 moderate; 15-21 severe): 0 Source: Developed by Drs. Sarkis Guerrero, Dalila Rashid, Wayne Diehl and colleagues, with an educational ivory from [employer]. RED-7 Assessment Billing RED-7 Assessment Tool: RED-7 Assessment 99618 Review of Systems Const Reports fatigue and Denies headache(s) Eyes Denies loss of vision ENT Denies vertigo, Reports dizziness, Denies headache(s) and Reports sore throat Card Denies chest pain, Denies leg edema and Denies lightheadedness Resp Denies cough, Denies hemoptysis and Denies wheezing GI Denies abdominal pain, Denies melena, Denies constipation, Denies diarrhea and Denies vomiting Denies urinary frequency, Denies dysuria and Denies urinary urgency Musc Denies arthralgias, Denies joint swelling, Denies numbness and Denies tingling Neuro Denies Abnormal speech present, Denies behavioral changes, Denies vertigo, Reports dizziness, Denies headache(s), Denies loss of vision, Denies memory lo ss, Denies numbness and Denies tingling Psych Denies anxiety, Denies behavioral changes, Denies depression, Denies memory loss and Denies panic attacks Endo Reports fatigue Magnus/Lymph Denies easy bleeding and Denies easy bruising Aller/Immun Denies wheezing Physical exam (Primary Care) Vital Signs: Last Vital Signs Temp 97.3 F 12/06/24 11:02 Pulse 64 12/06/24 11:02 BP 114/64 12/06/24 11:02 Pulse Ox 97 12/06/24 11:02 Oxygen Delivery Method Room Air 12/06/24 11:02 BMI result Body Mass Index 21.7 Tobacco/Smoking Status: Tobacco use Status Tobacco use date assessed 12/06/24 12/06/24 11:12 Patient Tobacco Use Status Former Tobacco user 12/06/24 11:04 Tobacco use type Cigarette 12/06/24 11:04 e-Cigarette/Vaping Use Never Used 12/06/24 11:04 PHQ-9: PHQ-9 Score PHQ-9: Total score 0 12/06/24 11:20 Depression Screening Interpretation: Negative Thrive Assessment: Date of Thrive Assessment Date Thrive assessed 12/06/24 12/06/24 11:12 Currently or been in a relationship where the following occur: No concerns reported Const General: healthy appearing, no acute distress, alert and awake Nutritional Appearance: well nourished Orientation/consciousness: oriented to person, oriented to place and oriented to time [facility] Ears: TM's normal bilaterally General nose exam: Normal nasal mucous membranes and turbinates present Eyes Conjunctivae: conjunctivae normal Sclerae: sclerae normal Pupils: Equal, round and reactive pupils present Neck Neck: Yes no lymphadenopathy and Yes no JVD Thyroid: Thyroid normal Carotids: no bruits Resp Effort & Inspection: normal respiratory effort and not tachypneic Auscultation: no crackles, no rales, no rhonchi and no wheezes Cardio Rate: regular rate Rhythm: regular rhythm Heart sounds: no murmurs and normal S1 and S2 GI Palpation (GI): Soft to palpation, nontender, no hepatomegaly and no splenomega ly Auscultation: normal bowel sounds Skin General skin exam: no rashes or lesions noted and dry skin Neuro General: oriented to person, oriented to place and oriented to time Cranial nerves: Yes Equal, round and reactive pupils present Speech: No Abnormal speech present Gait exam (Neuro): Normal gait present Motor exam (neuro): no tremor noted Extrem Right upper extremity: full ROM Left upper extremity: full ROM Right lower extremity: full ROM; no edema Left lower extremity: full ROM; no edema Psych Mental Status: mental status grossly normal Speech and movement: Normal speech and movement present Affect: normal affect Attitude: cooperative Thought process: Normal thought process present Coding Level of Care Code Est Pt Level 4 (82183) Diagnoses Multiple sclerosis G35 MDD (major depressive disorder), recurrent episode, moderate F33.1 Viral syndrome B34.9 Mixed hyperlipidemia E78.2 Hyperlipidemia type: mixed hyperlipidemia Essential hypertension I10 Hypertension type: essential hypertension Bronchitis J40 Additional Codes RED-7 Assessment Billing - RED-7 Assessment Tool: RED-7 Assessment 41576 ([id number]) PHQ-9 - 11574 - PHQ-9 Billing: Yes ([id number]) Assessment & Plan Assessment & Plan (1) Multiple sclerosis: Code(s): G35 - Multiple sclerosis Category: Medical Plan: Continues on MS treatment, continues to follow neurologist. She does have some fatigue and muscle pain at times. (2) MDD (major depressive disorder), recurrent episode, moderate: Code(s): F33.1 - Major depressive disorder, recurrent, moderate Category: Medical Plan: Patient is followed by a psychiatrist and a mental health therapist. She feels her mental health is fairly stable. Her Adderall was increased recently to help her with her attention and focus in her energy. (3) Viral syndrome: Code(s): B34.9 - Viral infection, unspecified Category: Medical Plan: As per HPI has been having upper respiratory viral symptoms, fatigue over the last 2 weeks. Recently went on a cruise and likely exposed sick contacts. Tested for flu RSV and COVID today. (4) HLD (hyperlipidemia): Code(s): E78.5 - Hyperlipidemia, unspecified Category: Medical Qualifiers: Hyperlipidemia type: mixed hyperlipidemia Qualified Code(s): E78.2 - Mixed hyperlipidemia Plan: Patient's most recent lipid panel showing continued elevated total cholesterol and LDL. Fortunately HDL remains high. 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 She is willing to start low-dose simvastatin to help reduce her cardiovascular risk. Goal LDL to be below 130 (5) HTN (hypertension): Code(s): I10 - Essential (primary) hypertension Category: Medical Qualifiers: Hypertension type: essential hypertension Qualified Code(s): I10 - Essential (primary) hypertension Plan: Patient's blood pressure acceptable today in office. Will continue her current dose of antihypertensive medication with goal blood pressure to be below 140/90 (6) Bronchitis: Comment: ? seasonal allergies vs bronchitis Code(s): J40 - Bronchitis, not specified as acute or chronic Category: Medical Plan: As above Orders: Orders SARS-CoV2/FLU/RSV Today R09.89 - Other specified symptoms and signs involving the circulatory and respiratory systems Microalbumin, Random (w Creat) Today I10 - Essential (primary) hypertension Complete Blood Count no Diff Today I10 - Essential (primary) hypertension Lipid Panel Today E78.2 - Mixed hyperlipidemia Comprehensive [place]. Panel Fast Today I10 - Essential (primary) hypertension Medications: New simvastatin 10 mg PO DAILY 90 tabs 1RF 90 days E78.2 - Mixed hyperlipidemia azithromycin For 250 mg dose pack: take 500 mg today (day 1), then 250 mg for 4 days (days 2-5) PO 6 tabs 0RF J40 - Bronchitis, not specified as acute or chronic Changed From baclofen 10 mg PO BEDTIME PRN Muscle Pain G35 - Multiple sclerosis To baclofen 10 mg PO BEDTIME 30 tabs 2RF Muscle Pain 30 days G35 - Multiple sclerosis Patient Instructions: Goal: Blood pressure to remain below 140/90, LDL to be below 100, total cholesterol to be below 230 Barriers: Adherence to physical activity and healthy eating habits
--- OUTSIDE RECORDS SUMMARY | 2024-12-06 11:02 | XMS_ITS | Clinical Summary ---
Author Organization 175 [facility] Address [address] [place] [address] Phone Care Team Providers Care Business Continuity Strategy Director Name Role Phone Talha Lennon Primary Care Provider Allergies Active Allergy Reactions Criticality Noted Date Comments Dimethyl Fumarate Itching 05/23/2021 Medications Ofatumumab (Kesimpta Pen) 20 mg/0.4 mL pen injector injection Inject one pen (20 mg total) under the skin every 28 (twenty-eight) days. 1.2 mL 5 01/29/2024 11:02 AM EDT 3 Active albuterol HFA (PROAIR HFA ; PROVENTIL HFA ; VENTOLIN HFA) 90 mcg/actuation inhaler Inhale 2 puffs by mouth every 6 (six) hours if needed. Active amLODIPine (NORVASC) 10 mg tablet Take by mouth 1 (one) time each day. Active cloNIDine (CATAPRES) 0.1 mg tablet Take 1 tablet (0.1 mg total) by mouth 2 (two) times a day. Active fluticasone (VERAMYST) 27.5 mcg/actuation nasal spray Administer 2 sprays into each nostril 1 (one) time each day. Active gabapentin (NEURONTIN) 100 mg capsule Take 1 capsule (100 mg total) by mouth 3 (three) times a day. Active meloxicam (MOBIC) 15 mg tablet Take 1 tablet (15 mg total) by mouth 1 (one) time each day. Active omega-3 acid ethyl esters (LOVAZA) 1 gram capsule Take 1 capsule (1 g total) by mouth 2 (two) times a day. Active traZODone (DESYREL) 100 mg tablet Take 1 tablet (100 mg total) by mouth at bedtime. Active turmeric 400 mg capsule Take by mouth. Acti ve cholecalcifero l (VITAMIN D-3) 50 mcg (2,000 unit) tablet Take 1 tablet (2,000 Units total) by mouth 1 (one) time each day. Active OMEGA-3 FATTY ACIDS ORAL Take by mouth. Acti ve turmeric root extract 500 mg capsule Take by mouth. Activ e albuterol HFA (PROAIR HFA ; PROVENTIL HFA ; VENTOLIN HFA) 90 mcg/actuation inhaler Inhale 1 puff into the lungs as needed. 2 Active cholecalcifero l (VITAMIN D-3) 25 mcg (1,000 unit) tablet Take 1 tablet by mouth. Active oxyBUTYnin XL (DITROPAN-XL) 5 mg 24 hr tablet Take 1 tablet (5 mg total) by mouth 1 (one) time each day. Do not crush, chew, or split. 30 each 11 4 08/26/20 25 Active amphetamine-de xtroamphetamin e XR (ADDERALL XR) 5 mg 24 hr capsuleIndicat ions:Multiple sclerosis (CMS/HCC) Take 1 capsule (5 mg total) by mouth 1 (one) time each day. 20 capsule 4 Active amphetamine-de xtroamphetamin e XR (ADDERALL XR) 10 mg 24 hr capsuleIndicat ions:Multiple sclerosis (CMS/HCC) Take 1 capsule (10 mg total) by mouth 1 (one) time each day in the morning. Do not crush or chew. Max Daily Amount: 10 mg 30 each 5 Active amphetamine-de xtroamphetamin e XR (ADDERALL XR) 10 mg 24 hr capsule Take 1 capsule (10 mg total) by mouth 1 (one) time each day in the morning. Do not crush or chew. Max Daily Amount: 10 mg 30 each 4 11/09/19 25 Discontinu ed(Reorder ) Active Problems Problem Noted Date Diagnosed Date HTN (hypertension) 07/02/2023 Multiple sclerosis 07/02/2023 Encounters Date Type Department Care Team Description 09/14/2024 Telephone [facility] [address] [place] [address] Lupe Michaels PA Med Refill from Last 3 Months Surgical History Surgery Date Site/Laterality Comments HYSTERECTOMY PROCEDURE:HYSTERECTOMY Medical History Medical History Date Comments MS (multiple sclerosis) (CMS/HCC) DX:MS (multiple sclerosis) (HCC) Family History Medical History Relation Name Comments Multiple sclerosis Brother Breast cancer Mother Hypertension Mother Kidney disease Mother Multiple sclerosis Niece Relation Name Status Comments Brother Mother Niece Social History Tobacco Use Types Packs/Day Years Used Date Smoking Tobacco: Former Smokeless Tobacco: Never Tobacco Cessation:Counseling Given: Not Answered Alcohol Use Standard Drinks/Week Comments Yes 0 (1 standard drink = 0.6 oz pur e alcohol) Comments Unknown Sex and Gender Information Value Date Recorded Sex Assigned at Not on file Legal Sex Female 5:52 PM EST Gender Identity Not on file Sexual Orientation Not on file Obstetrics History Last Filed Vital Signs Vital Sign Reading Time Taken Comments Blood Pressure 126/71 08/26/2024 11:24 AM EST Pulse 70 08/26/2024 11:24 AM EST Temperature 36 ??C (96.8 ??F) 08/26/2024 11:24 AM EST Respiratory Rate - - Oxygen Saturation 96% 08/26/2024 11:24 AM EST Inhaled Oxygen Concentration - - Weight 51.1 kg (112 lb 9.6 oz) 02/24/2024 11:16 AM EDT Height 152.4 cm (5') 02/24/2024 11:16 AM EDT Body Mass Index 21.99 02/24/2024 11:16 AM EDT Plan of Treatment Upcoming Encounters Date Type Department Care Team (Late st Contact Info) Description 12/23/2024 9:00 AM EST Office Visit [facility] [place] [address] [facility] [address] [place] [address] Lupe Michaels PA [address] [place] [address] [place] [address] Health Maintenance Due Date Last Done Comments Pneumococcal Vaccine: 50+ Years (2 of 2 - PCV) 04/05/2021 04/05/2020 Cholesterol Screening (Lipid Panel) 09/26/2022 Colorectal Cancer Screening: Colonoscopy 09/26/2022 Depression Screening 09/26/2022 Hepatitis C Screening 09/26/2022 Osteoporosis Screening (Bone Density Screening) 09/26/2022 Social Influencers of Health Screening 09/26/2022 Falls Risk Assessment 2023 COVID-19 Vaccine ( season) 2024 02/09/2021, 01/17/2021 Influenza Vaccine (#1) 2024 08/22/2022 Hypertension/CHF/CAD Annual BMP Blood Test 10/25/2025 10/25/2024 Breast Cancer Screening 12/08/2025 12/08/19, 12/02/2022, 11/19/2021, Additional history exists DTaP,Tdap,and Td Vaccines (2 - Td or Tdap) 12/22/2028 12/22/2018 RSV Immunization Patients 60+ Years Old (1 - 1-dose 75+ series) 2033 Zoster Vaccines Completed 04/02/2019, 11/2018, 11/25/2018 HIB Vaccines Aged Out No longer eligi ble based on patient's age to complete this topic HPV Vaccines Aged Out No longer eligi ble based on patient's age to complete this topic Hepatitis A Vaccines Aged Out No long er eligible based on patient's age to complete this topic Hepatitis B Vaccines Aged Out No long er eligible based on patient's age to complete this topic IPV Vaccines Aged Out No longer eligi ble based on patient's age to complete this topic MMR Vaccines Aged Out No longer eligi ble based on patient's age to complete this topic Meningococcal ACWY Vaccine Aged Out N o longer eligible based on patient's age to complete this topic Meningococcal B Vacine Aged Out No lo nger eligible based on patient's age to complete this topic RSV Immunization Patients Under 20 months Aged Out No longer eligible based on patient's age to complete this topic Varicella Vaccines Aged Out No longer eligible based on patient's age to complete this topic Procedures Procedure Name Priority Date/Time Associated Diagnosis Comments CBC WITH AUTO DIFFERENTIAL Routine 10/25/2024 10:55 AM EST Multiple sclerosis (CMS/HCC) High risk medication use HEPATIC FUNCTION PANEL Routine 10/25/2024 10:55 AM EST Multiple sclerosis (CMS/HCC) High risk medication use CREATININE, SERUM Routine 10/25/2024 10: 55 AM EST Multiple sclerosis (CMS/HCC) High risk medication use BUN Routine 10/25/2024 10:55 AM EST Multiple sclerosis (CMS/HCC) High risk medication use CBC AND DIFFERENTIAL Routine 10/25/2024 10:55 AM EST Multiple sclerosis (CMS/HCC) High risk medication use TENZIN SCREENING DIGITAL Routine 12/08/2023 4:41 PM EST Encounter for screening mammogram for malignant neoplasm of breast from Last 3 Months or Most Recently Relevant to Health Maintenance Results * (ABNORMAL) CBC auto differential (10/25/2024 10:55 AM EST) WBC 5.3 4.8 - 10.8 K/mcL LAB HEMETOLOGY METHOD 10/25/2024 2:37 PM [facility] RBC 4.50 3.80 - 4.80 M/mcL LAB HEMETOLOGY METHOD 10/25/2024 2:37 PM [facility] Hemoglobin 13.2 11.5 - 16.0 g/dL LAB HEMETOLOGY METHOD 10/25/2024 2:37 PM [facility] Hematocrit 42.0 35.0 - 47.0 % LAB HEMETOLOGY METHOD 10/25/2024 2:37 PM [facility] MCV 92.9 79.0 - 98.0 FL LAB HEMETOLOGY METHOD 10/25/2024 2:37 PM [facility] MCH 29.2 27.0 - 32.0 pcg LAB HEMETOLOGY METHOD 10/25/2024 2:37 PM [facility] MCHC 31.4(L) 32.0 - 37.0 g/dL LAB HEMETOLOGY METHOD 10/25/2024 2:37 PM [facility] RDW 12.6 11.0 - 15.0 % LAB HEMETOLOGY METHOD 10/25/2024 2:37 PM [facility] Platelets 310 130 - 400 K/mcL LAB HEMETOLOGY METHOD 10/25/2024 2:37 PM [facility] MPV 10.6 7.0 - 11.0 FL LAB HEMETOLOGY METHOD 10/25/2024 2:37 PM [facility] NRBC 0.0 <1.0 % LAB HEMETOLOGY METHOD 10/25/2024 2:37 PM [facility] NRBC Absolute 0.00 <0.10 K/mcL LAB HEMETOLOGY METHOD 10/25/2024 2:37 PM [facility] Neutrophils Relative 66.0 % LAB HEMETOLOGY METHOD 10/25/2024 2:37 PM [facility] Lymphocytes Relative 23.4 % LAB HEMETOLOGY METHOD 10/25/2024 2:37 PM [facility] Monocytes Relative 8.6 % LAB HEMETOLOGY METHOD 10/25/2024 2:37 PM [facility] Eosinophils Relative 0.7 % LAB HEMETOLOGY METHOD 10/25/2024 2:37 PM [facility] Basophils Relative 0.9 % LAB HEMETOLOGY METHOD 10/25/2024 2:37 PM [facility] Immature Granulocytes Relative 0.4 % LAB HEMETOLOGY METHOD 10/25/2024 2:37 PM [facility] Neutrophils Absolute 3.52 1.50 - 7.00 K/mcL LAB HEMETOLOGY METHOD 10/25/2024 2:37 PM [facility] Lymphocytes Absolute 1.25 1.00 - 5.00 K/mcL LAB HEMETOLOGY METHOD 10/25/2024 2:37 PM [facility] Monocytes Absolute 0.46 0.20 - 1.00 K/mcL LAB HEMETOLOGY METHOD 10/25/2024 2:37 PM EST [facility] Eosinophils Absolute 0.04 0.00 - 0.50 K/mcL LAB HEMETOLOGY METHOD 10/25/2024 2:37 PM EST [facility] Basophils Absolute 0.05 0.00 - 0.20 K/[facility] LAB HEMETOLOGY METHOD 10/25/2024 2:37 PM [facility] Immature Granulocytes Absolute 0.02 0.00 - 0.03 K/[facility] LAB HEMETOLOGY METHOD 10/25/2024 2:37 PM [facility] Blood Venous blood specimen / Unknown Venipuncture / Unknown 10/25/2024 10:55 AM EST 10/25/2024 10:55 AM EST us Cedric Banks MD LAB BLOOD ORDERABLES Fin al Result [facility] [address] [place] [address], * Creatinine (10/25/2024 10:55 AM EST) Creatinine 0.67 0.50 - 1.10 mg/dL LAB CHEMISTRY METHOD 10/25/2024 4:28 PM EST [facility] eGFR 97 >=60 mL/min/1. 73m2 LAB CHEMISTRY METHOD 10/25/2024 4:28 PM EST [facility] Comment:Calculation based on the??Chronic Kidney Disease Epidemiology Collaboration (CKD-EPI) equation refit??without adjustment for race. Blood Venous blood specimen / Unknown Venipuncture / Unknown 10/25/2024 10:55 AM EST 10/25/2024 10:55 AM EST us Cedric Banks MD LAB BLOOD ORDERABLES Fin al Result Performing Organization Address City/[facility] [address]/ZIP Co de Phone Number [facility] [address] [place] [address], [place] [phone] * BUN (10/25/2024 10:55 AM EST) [facility] BUN 20 5 - 25 mg/dL LAB CHEMISTRY METHOD 10/25/2024 4:28 PM [facility] Blood Venous blood specimen / Unknown Venipuncture / Unknown 10/25/2024 10:55 AM EST 10/25/2024 10:55 AM EST Cedric Banks MD LAB BLOOD ORDERABLES Fin al Result Performing Organization Address [facility] [address] [facility] de Phone Number [facility] [address] [place] [address], [place] [phone] * Hepatic function panel (10/25/2024 10:55 AM EST) [facility] Total Protein 6.6 6.0 - 8.0 g/dL LAB CHEMISTRY METHOD 10/25/2024 4:31 PM [facility] Albumin 3.9 3.2 - 5.0 g/dL LAB CHEMISTRY METHOD 10/25/2024 4:31 PM [facility] Total Bilirubin 0.5 0.0 - 1.4 mg/dL LAB CHEMISTRY METHOD 10/25/2024 4:31 PM [facility] Bilirubin, Direct 0.1 0.0 - 0.3 mg/dL LAB CHEMISTRY METHOD 10/25/2024 4:31 PM [facility] Bilirubin, Indirect 0.4 0.0 - 1.1 mg/dL LAB CHEMISTRY METHOD 10/25/2024 4:31 PM [facility] ALT (SGPT) 29 10 - 60 unit/L LAB CHEMISTRY METHOD 10/25/2024 4:31 PM [facility] AST (SGOT) 16 10 - 42 unit/L LAB CHEMISTRY METHOD 10/25/2024 4:31 PM EST [facility] Alkaline Phosphatase 76 42 - 121 unit/L LAB CHEMISTRY METHOD 10/25/2024 4:31 PM EST [facility] Blood Venous blood specimen / Unknown Venipuncture / Unknown 10/25/2024 10:55 AM EST 10/25/2024 10:55 AM EST Cedric Banks MD LAB BLOOD ORDERABLES Fin al Result [facility] [address] [place] [address], * TENZIN SCREENING DIGITAL (12/08/2023 4:41 PM EST) Anatomical Region Laterality Modality Mammography 12/08/2023 8:13 AM EST Narrative 12/08/2023 4:41 PM [facility] Diagnostic Imaging Department [address] [place] [address] Patient: ??ARSENIO BOSE ?/Age/Sex: 1960 - 63 - F Unit#: ??[id number] ? Location/Status: ??SPDIMAM/REG CLI ? Mnemonic/Ordering Site: ??DIGSC/SPMAM Ordering Physician: ??FLORIDA LANCASTER MD [facility] Screening Digital - 12/08/23 - 0853 Report Status:Signed EXAM: [facility] Screening Digital EXAM DATE AND TIME: 12/08/2023 8:54 AM HISTORY: ??Screening. Mother had breast carcinoma at age 60. COMPARISON: ??12/02/22, 11/19/21, 08/08/20 TECHNIQUE: Bilateral digital breast tomosynthesis was performed in the CC and MLO projections. Computer aided detection with [employer] 3D 3.1 was employed. TISSUE DENSITY: c. The breasts are heterogeneously dense, which may obscure small masses. FINDINGS: No suspicious masses, grouped microcalcifications, or areas of architectural distortion are seen. Scattered microcalcifications are again seen. The skin and vascularity are unremarkable. IMPRESSION: Stable mammographic appearance of the breasts. ??No evidence of malignancy is seen. A negative mammogram in the presence of a clinically suspicious palpable abnormality does not preclude the possibility of malignancy or alter the indications for biopsy. BI-RADS: ??Category 2: Benign RECOMMENDATION(S): 1: Routine screening mammogram BILATERAL in 1 year. Dictating Physician: ??MARIA ELENA LIND MD Electronically Signed by: ??MARIA ELENA LIND MD Dic Date/Time: ??12/08/23 1640 Sign date/Time: ??12/08/23 1641 Procedure Note Maria Elena Lind MD - 06/07/2024 [facility] Diagnostic Imaging Department [address] [place] [address] [id number] Patient: ARSENIO BOSE/Age/Sex: 1960 - 63 - F Unit#: [id number] [facility] Ordering Physician: FLORIDA LANCASTER MD [facility] Screening Digital - 12/08/23 - 0853 Report Status:Signed EXAM: [facility] Screening Digital EXAM DATE AND TIME: 12/08/2023 8:54 AM HISTORY: Screening. Mother had breast carcinoma at age 60. COMPARISON: 12/02/22, 11/19/21, 08/08/20 TECHNIQUE: Bilateral digital breast tomosynthesis was performed in the CCand MLO projections. Computer aided detection with [employer] 3D 3.1was employed. TISSUE DENSITY: c. The breasts are heterogeneously dense, which mayobscure small masses. FINDINGS: No suspicious masses, grouped microcalcifications, or areas ofarchitectural distortion are seen. Scattered microcalcifications are again seen. Theskin and vascularity are unremarkable. IMPRESSION: Stable mammographic appearance of the breasts. No evidence of malignancyis seen. A negative mammogram in the presence of a clinically suspicious palpable abnormality does not preclude the possibility of malignancy or alter the indications for biopsy. BI-RADS: Category 2: Benign RECOMMENDATION(S): 1: Routine screening mammogram BILATERAL in 1 year. Dictating Physician: MARIA ELENA LIND MD Electronically Signed by: MARIA ELENA LIND MD Dic Date/Time: 12/08/23 1640 Sign date/Time: 12/08/23 1641 us [place] Lancaster MD IMG BI PROCEDURES Final Result from Last 3 Months or Most Recently Relevant to Health Maintenance Insurance [facility] Care Teams Business Continuity Strategy Director Relationship Specialty Start Date End Date Talha Lennon PA [facility] [place] [id number] PCP - General Physician Calciner Operator 12/03/24
--- OUTSIDE RECORDS SUMMARY | 2024-12-06 11:02 | XMS_ITS | Clinical Summary ---
Author Organization [facility] Address [address] [place] [address] Care Team Providers Care Switchboard Operator Receptionist Name Role Phone Talha Lennon Primary Care Provider [phone] Allergies Active Allergy Reactions Criticality Noted Date Comments Dimethyl Fumarate Itching 05/23/2021 Medications Medication Sig Dispensed Refills Start Date End Date Status amLODIPine (NORVASC) tablet 10 mg Take 1 tablet (10 mg total) by mouth daily. 0 02/08/2020 Active traZODone (DESYREL) 100 MG tablet Take 1 tablet (100 mg total) by mouth daily. 0 02/10/2020 Active Turmeric 500 MG CAPS Take by mouth. 0 Active fluticasone (VERAMYST) 27.5 MCG/SPRAY nasal spray spray or apply 50 mcg inside Nose. 0 Active vitamin D3 (VITAMIN D3) 25 MCG (1000 UT) tablet Take 1 tablet (25 mcg total) by mouth. 0 Active [place]-3 Fatty Acids (FISH OIL PO) Take by mouth. 0 Active albuterol 108 (90 Base) MCG/ACT inhaler Inhale 1 puff into the lungs as needed. 0 11/05/2021 Active cloNIDine (CATAPRES) tablet 0.1 mg Take 1 tablet (0.1 mg total) by mouth as needed. 0 12/09/2019 Active meloxicam (MOBIC) 15 MG tablet Take 1 tablet (15 mg total) by mouth as needed. 0 11/05/2021 Active gabapentin (NEURONTIN) 100 MG capsule TAKE 1 CAPSULE BY MOUTH THREE TIMES A DAY 90 capsule 5 08/07/2022 Active Ofatumumab 20 MG/0.4ML SOAJIndications:Mul tiple sclerosis (HCC) Inject 20 mg under the skin every 30 (thirty) days. 1 injection SQ every month 1.2 mL 5 04/07/2024 Active amphetamine-dextroa mphetamine (ADDERALL XR, 10MG,) 10 MG 24 hr capsule Take 1 capsule (10 mg total) by mouth daily. 30 capsule 0 04/09/2024 Active amphetamine-dextroa mphetamine (ADDERALL) 5 MG tablet Take 1 tablet (5 mg total) by mouth daily. 0 Active amphetamine-dextroa mphetamine (ADDERALL XR) 5 MG 24 hr capsule TAKE 1 TAB DAILY 30 capsule 0 08/05/2024 Active Active Problems Problem Noted Date Diagnosed Date Multiple sclerosis 01/18/2021 HTN (hypertension) 03/24/2020 Family History Medical History Relation Name Comments [...] drink = 0.6 oz pur e alcohol) Sex and Gender Information Value Date Recorded Sex Assigned at Female 01/18/2021 8:54 AM EDT Gender Identity Not on file Sexual Orientation Not on file Job Start Date Occupation Industry Not on file Not on file Not on file Last Filed Vital Signs Vital Sign Reading Time Taken Comments Blood Pressure 144/76 02/24/2024 11:16 AM EDT Pulse 77 02/24/2024 11:16 AM EDT Temperature 36.4 ??C (97.6 ??F) 02/24/2024 11:16 AM E DT Respiratory Rate 16 06/30/2023 1:27 PM EDT Oxygen Saturation 96% 02/24/2024 11:16 AM EDT Inhaled Oxygen Concentration - - Weight 51.1 kg (112 lb 9.6 oz) 02/24/2024 11:16 AM EDT Height 152.4 cm (5') 02/24/2024 11:16 AM EDT Body Mass Index 21.99 02/24/2024 11:16 AM EDT Plan of Treatment Health Maintenance Due Date Last Done Comments Hepatitis C Screening 1960 COVID-19 Vaccine (#1) 1960 Depression Screening 1970 Preventative Health Evaluation 1976 DTap / Tdap / Td (1 - Tdap) 1977 Colon Cancer Screening (Colonoscopy) 2003 Breast Cancer Screening (Mammogram) 2008 Shingrix-Zoster Vaccine (1 of 2) 2008 Fall Risk Assessment 2023 Osteoporosis Screening (DEXA Scan) 2023 Pneumococcal Vaccine (1 of 1 - PCV) 2023 Influenza Vaccine (#1) 2024 RSV Adult > 60+ Yrs or Pregn ant (1 - 1-dose 75+ series) 2033 Hepatitis B Vaccines Aged Out No long er eligible based on patient's age to complete this topic RSV Ped < 20 months Aged Out No longe r eligible based on patient's age to complete this topic Additional Health Concerns Infection Onset Date Last Indicated COVID-19 Confirmed 10/16/2021 11/07/2021 Care Teams Switchboard Operator Receptionist Relationship Specialty Start Date End Date Talha Lennon PA [address] [place] [phone] PCP - General Physician Chemical Research Technician 04/25/20
--- OUTSIDE RECORDS SUMMARY | 2024-12-06 11:02 | XMS_ITS ---
Author Name [facility] Organization Unknown History of Medication Use Medication Directions Dispensed Refills Start Date End Date Stat us cloNIDine (CATAPRES) tablet 0.1 mg Take 1 tablet (0.1 mg total) by mouth as needed. 12/09/2019 active amLODIPine (NORVASC) tablet 10 mg Take 1 tablet (10 mg total) by mouth daily. 02/08/2020 active fluticasone (VERAMYST) 27.5 MCG/SPRAY nasal spray spray or apply 50 mcg inside Nose. active meloxicam (MOBIC) 15 MG tablet Take 1 tablet (15 mg total) by mouth as needed. 11/05/2021 active amphetamine-dextroamphe tamine (ADDERALL XR) 5 MG 24 hr capsule TAKE 1 CAPSULE BY MOUTH DAILY FOR ADHD. DO NOT TAKE WITHIN 24 HOURS OF MODAFINIL 09/23/2022 active albuterol 108 (90 Base) MCG/ACT inhaler Inhale 1 puff into the lungs as needed. 11/05/2021 active methylPREDNISolone sodium succinate (SOLU-Medrol) 1,000 mg in sodium chloride (NS) 0.9 % 100 mL IVPB 1,000 mg, Intravenous, Administer over 30 Minutes, Once, On Fri07/04/23 at 0930, For 1 dose 07/04/2023 3 completed Problems Problem Status Onset Date Problem Type Date of Resoluti on Source Multiple sclerosis active 2021-01-18 ProblemAct [facility] HTN (hypertension) active 2020-03-24 ProblemAct [facility]
== END 2024-12-06 11:36 | disposition home or self-care (01) ==
PROVIDERS: PCP Physician Assistant; Visit Provider Physician Assistant
DX: G35 Multiple sclerosis (principal); F33.1 Major depressive disorder, recurrent, moderate; B34.9 Viral infection, unspecified; E78.2 Mixed hyperlipidemia; I10 Essential (primary) hypertension; J40 Bronchitis, not specified as acute or chronic

== ENCOUNTER 2024-12-06 10:59 | Outpatient (REF) | payer MEDICARE, SELFPAY ==
--- OUTSIDE RECORDS SUMMARY | 2024-12-06 11:15 | XMS_ITS | Data Portability ---
Author Organization [place] [facility], [facility] Address [address] [place] [address] Assessment No assessment recorded. Plan of Treatment Reminders Order Date Submit Date Provider Last Modified By Organization Details Last Modified Time Details Appointments NEW PATIENT 15 2024 02:45P M Juan Pablo Barakat PA-C Not available Not available Not available Lab None recorded. Referral None recorded. Procedures nerve conductio n study/EMG , upper extremity (PROC) - bilateral hand numbness and tingling eval periphera l nerve impingeme nt 2023 024 [email or web address] [facility] Neurology Scheduling, [address] , [place], [address], 10/14/2024 15:10:55 Surgeries None recorded. Imaging XR, finger(s) , 2 or more view - new pt 3 views right thumb rm 111 2023 024 [facility] Office, [address] [facility] [address], [place], [address], 06/25/2024 11:12:54 Medication Orders None recorded. Patient TargetsNo targets recorded. Patient InstructionsNo instructions recorded. Reason for Referral None Reported. Results Created Date Observation Date Name Description Value Unit Range Abnormal Flag Note LastModifiedBy Organization Detail LastModifiedTime 06/02/20 24 06/02/2024 XR, finge r(s), 2 or more view http:/ [email or web address] ?Encry pted=s hAaTro YD8dLq bEUv6g %2BXZw aYqtaq 0bqfl% 2Fg9IQ a4ajBk vP9nXo QUaueC m3YtLR FvZlgJ JJ8mAn HZtai3 7v9902 AC0KoY 3%2BNU 6reUC8 mr84%3 D INTERFACE [facility] [address], [place], [address], 06/02/2024 15:41:12 06/02/20 24 06/02/2024 XR, finge r(s), 2 or more view http:/ [email or web address] ?Encry pted=s hAaTro YD8dLq bEUv6g %2BXZw aYqtaq 0bqfl% 2Fg9IQ a4ajBk vP9nXo QUaueC m3YtLR FvZlgJ JJ8mAn HZtai3 7n6875 AC0KoY 3%2BNU 6reUC8 mr84%3 D INTERFACE [facility] [address], [place], [address], 06/02/2024 15:41:14 06/19/20 24 08/26/2020 imagi ng/di agnos tic resul t No observ ation record ed. [email or web address] Not Available 05/22 02:10:51 06/19/20 24 05/01/2020 imagi ng/di agnos tic resul t No observ ation record ed. [email or web address] Not Available 05/22 02:11:08 06/19/20 24 04/17/2020 imagi ng/di agnos tic resul t No observ ation record ed. [email or web address] Not Available 05/22 02:11:11 Result Notes None recorded. Problems Name Problem SNOMED Code Status Onset Date Resolution Date Notes Provider Name and Address Organization Details Recorded Time No complaints [id number] Active Status : 'I'; Not Available [facility] 09:16[facility]02 Problem Notes None recorded. Procedures Surgical History Date Name Laterality Status Provider Name and Address Organization Details Recorded Time 4 [facility] Inj completed Dane Waters PA-C [address], [place], [address], [place] [facility] 10/11/2024 09:30:02 4 Small Joint Kenalog Injection, L/R completed Tawny Collins PA-C [address], [place], [address], [place] [facility] 06/02/2024 15:47:19 Imaging Results Imaging Date Name Status LastModified by Organiz ation Details LastModified Time 06/02/2024 XR, finger(s), 2 or more view completed [facility] [address], [place], [address], 06/02/2024 15:41:12 06/02/2024 XR, finger(s), 2 or more view completed INTERFACE [facility] [address], [place], [address], 06/02/2024 15:41:14 08/26/2020 imaging/diag nostic result completed Information not available 06/19/2024 02:10:51 05/01/2020 imaging/diag nostic result completed Information not available 06/19/2024 02:11:08 04/17/2020 imaging/diag nostic result completed Information not available 06/19/2024 02:11:11 Procedure Notes None recorded. Medical Equipment None Reported. Allergies No known drug allergies Medications Name Sig Start Date Stop Date Status Note LastModified by Organization Details LastModified Time fluoxetine 40 mg capsule TAKE 1 CAPSULE BY MOUTH EVERY DAY active Not Available Not Available No t Available amoxicillin 500 mg capsule TAKE 1 CAPSULE BY MOUTH 3 TIMES A DAY DIRECTED START 2 DAYS PRIOR TO DENTAL SURGICAL PROCEDURE . active Not Available Not Available No t Available ibuprofen 800 mg tablet PLEASE SEE ATTACHED FOR DETAILED DIRECTION S active Not Available Not Available No t Available hydrocodone 5 mg-acetamin ophen 325 mg tablet TAKE 1 TABLET BY MOUTH EVERY 4 TO 6 HOURS NEEDED FOR PAIN active Not Available Not Available No t Available meloxicam 15 mg tablet TAKE 1 TABLET DAILY FOR 90 DAYS active Not Available Not Available No t Available bupropion HCl SR 100 mg tablet,12 hr sustained-r elease TAKE 1 TABLET BY MOUTH EVERY DAY active Not Available Not Available No t Available amoxicillin 500 mg tablet TAKE 4 TABLETS BY MOUTH ONE HOUR PRIOR TO PROCEDURE active Not Available Not Available No t Available modafinil 200 mg tablet TAKE 1 TABLET BY MOUTH EVERY DAY active Not Available Not Available No t Available trazodone 100 mg tablet TAKE 1 TABLET BY MOUTH DAILY FOR 90 DAYS active Not Available Not Available No t Available phenazopyri dine 100 mg tablet TAKE 1 TABLET BY MOUTH 3 TIMES A DAY active Not Available Not Available No t Available amlodipine 10 mg tablet TAKE 1 TABLET BY MOUTH EVERY DAY active Not Available Not Available No t Available pseudoephed rine-guaife nesin ER 80-700 mg tablet,exte nded release 1-2 tabs every 4-6 [address] for painDO NOT DRIVE WHILE ON THIS MEDICATIO N 03/03 completed Statu s: 'Disc ontin ued'; Not Available Not Available Not Available oxybutynin chloride ER 5 mg tablet,exte nded release 24 hr TAKE 1 TABLET BY MOUTH EVERY DAY DO NOT CRUSH, CHEW, OR SPLIT active Not Available Not Available No t Available dextroamphe tamine-amph etamine ER 10 mg 24hr capsule,ext end release TAKE 1 CAPSULE DAILY IN THE MORNING DO NOT CRUSH OR CHEW. MAX 10 MG DAILY active Not Available Not Available No t Available codeine 10 mg-guaifene sin 100 mg/5 mL oral liquid TAKE 5 ML BY MOUTH 6 TIMES A DAY FOR 4 DAYS NEEDED FOR COUGH, MAY CAUSE DROWSINES S active Not Available Not Available No t Available ibuprofen 600 mg tablet TAKE 1 TABLET BY MOUTH THREE TIMES A DAY NEEDED FOR PAIN active Not Available Not Available No t Available albuterol sulfate HFA 90 mcg/actuati on aerosol inhaler INHALE 2 PUFFS 4 TIMES A DAY active Not Available Not Available No t Available dextroamphe tamine-amph etamine 5 mg tablet TAKE 1 TABLET BY MOUTH DAILY FOR ATTENTION DEFICIT HYPERACTI VITY DISORDER FOR 30 DAYS active Not Available Not Available No t Available dextroamphe tamine-amph etamine ER 5 mg 24hr capsule,ext end release TAKE 1 CAPSULE BY MOUTH 1 TIME EACH DAY. active Not Available Not Available No t Available nitrofurant oin monohydrate /macrocryst als 100 mg capsule TAKE 1 CAPSULE BY MOUTH TWICE A DAY FOR 7 DAYS active Not Available Not Available No t Available chlorhexidi ne gluconate 0.12 % mouthwash RINSE WITH 1/2 OUNCE BY MOUTH TWICE A DAY DIRECTED DO NOT SWALLOW active Not Available Not Available No t Available Gavilax 17 gram/dose oral powder PLEASE SEE ATTACHED FOR DETAILED DIRECTION S active Not Available Not Available No t Available Kesimpta Pen 20 mg/0.4 mL subcutaneou s pen injector active Not Available Not Available Not Available Vitals Date Recorded Body height Body mass index (BMI) Body weight Provider Name and Address Organization Details Last Updated DateTime 06/02/2024 152.4 cm 21.5 kg/m2 55338.16 g [facility] 06/02/2024 15:32:14 Date Recorded Body height Body mass index (BMI) Body weight Provider Name and Address Organization Details Last Updated DateTime 10/11/2024 152.4 cm 21.5 kg/m2 45913.16 g [facility] 10/11/2024 08:53:21 Social History None recorded. Functional Status None recorded. Mental Status None recorded. Family History Nothing Reported. Medical History No medical history recorded. Gynecological HistoryNo gynecological history recorded. Obstetrics History GPAL:G 0 P 0 0 0 0 Past Encounters Encounter ID Performer Location Encounter Start Date Encounter Closed Date Diagnosis/Indication Diagnosis SNOMED-CT Code Diagnosis ICD10 Code Diagnosis Note [id number] RYAN Gill [address] [facility] [place] [address] 06/02/2024 15:23:00 06/25/2024 11:12:54 Pain in right thumb [id number] 046758 M79.208 [id number] RYAN Cuevas [address] [place] [address] 10/11/2024 08:39:52 11/01/2024 16:06:47 Pain of bilateral hands [id number] M79.641 M79.642 Health Concerns Section Related Observation LastModified by Organization Detai ls LastModified Time None Recorded Concern Status LastModified by Organization Details LastModified Time None Recorded Advance Directives Directive None Recorded Payers Encounter Date Sequence Insurance Name Policy Number Policy Baeza Covered Member ID Baeza Member ID Guarantor Name 06/02/2024 1 [facility]: MEDIC[place]UE (MEDICARE REPLACEMENT PPO) [id number] Sana Baldwindreau [id number] Sana Baldwindreau 10/11/2024 1 [place] PPO) [id number] Sana Abreu Gendreau [id number] Sana Abreu Gendreau Notes Date Note Type Note Provider Name and Address Organization Details Recorded Time 06/02/2024 text/html I am seeing this patient under the supervision of Dr. 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 She has been seen in the past by some my colleagues including Dr. Islas for cortisone injections. Her last cortisone injection was November. She is here today because she would like another cortisone injection as they have been helping. Denies interval trauma.Past family, medical, social history and review of systems has been reviewed, updated and is located in the patient's chart.Examination: The patient is well appearing, alert and oriented x3 and in no acute distress. Inspection of the right hand and wrist reveals edema and deformity about the first CMC joint region. Otherwise no edema, atrophy, erythema, ecchymoses or deformity. Skin is intact, no open wounds. Full movement of the forearm, wrist and digits bilaterally. Intact median and ulnar innervated intrinsics. Intact extrinsic wrist and digit flexors and extensors. Intact sensation of median, ulnar and radial nerve distributions. Good capillary refill. Patient is tender about the 1st CMC joint. Otherwise nontender about the rest of the wrist, hand, and digits bilaterally. No triggering of any digit noted. Median nerve compression test negative bilaterally. Negative Mishel's maneuver. Positive right first CMC compression test. Positive right first CMC grind test. Peripheral, vascular, lymphatic examination, skin, neurological, coordination, reflexes, sensation are within normal limits.X-rays ordered, obtained and reviewed independently today at [facility]: 3-view x-rays of the right thumb reveal no acute fractures or dislocations. There is narrowing of the first CMC joint with osteophyte formation.Impression: Right thumb 1st CMC OAPlan: I discussed my findings and situation with the patient. We discussed conservative treatment options at this time including topical and oral anti-inflammatories, modabber or forte brace, and cortisone injection. Patient would like to try a cortisone injection for the right first CMC joint today. We discussed the role of cortisone as well as its risks and benefits. Patient would like to proceed with an injection. Under sterile technique the patient's right first CMC joint was injected with 1cc lidocaine and 1cc Kenalog. Patient tolerated the procedure well. Post procedure protocol was discussed with the patient. Patient will follow-up on an as-needed basis. If symptoms persist or return or things worsen or change they will call the office. Patient agrees with this plan. All questions were answered.Speech recognition training and development rep software was used to create portions of this document. An attempt at proofreading has been made to minimize errors. Please call for corrections. Tawny Collins PA-C [address] [place] [address] [address], [place], [address], [facility] [place] 06/02/2024 15:47:51 10/11/2024 text/html I am seeing the patient today under the supervision of dr islas who was available but who did not see the patient. DX: right Basilar joint osteoarthritis 06/02/2024ilateral upper extremityStatus post left first CMC arthroplasty by Dr. islas HPI: 64-year-old female complaining of right thumb pain. Has increasing pain with grasp and delgado pinch for the past several months. Anti-inflammatories ineffective. No splinting. No falls or trauma. Previous injection helped for 4 months. She was last seen by Ms. Hector. Past family, medical, social history and review of systems has been reviewed, updated and is located in the patient? s chart. Examination: Alert and oriented ? 3 . No acute distress. Nonantalgic gait. right Thumb reveals no soft tissue swelling erythema ecchymosis. Tender over the TM joint. Positive first CMC joint grind test. No tenderness of the first dorsal compartment. Negative Tinel sign over the distal radial sensory nerve. Neurovascular intact. No tenderness over the A1 hemal region. Inspection the left hand reveals no swelling, erythema, ecchymoses or deformity. Full movement of the forearm, wrist and digits. Negative Phalen's test and median nerve compression test bilaterally X-rays ordered, obtained and reviewed at [facility] Impression/Plan:The findings and situation discussed with the patient. Recommended a cortisone injection to the TM joint. Under aseptic technique, 40 mg Kenalog 40 and 1 cc of 0.5% marcaine were injected into the right TM joint. The patient tolerated the procedure well. Postinjection precautions reviewed. The patient will follow up in 6 weeks if no improvement. Will obtain an EMG to evaluate peripheral nerve impingement. She will follow-up after the study. Dane Waters PA-C [address], [place], [address], [facility] 10/11/2024 09:30:16 OBGyn Episode No OBEpisode recorded.
[2024-12-06 18:19] LABS: Influenza A PCR NEGATIVE (Negative); Influenza B PCR NEGATIVE (Negative); Resp Syncy Virus RNA Qual PCR NEGATIVE (Negative); SARS COV2 PCR INHOUSE NEGATIVE (Negative)
== END 2024-12-06 11:00 | disposition home or self-care (01) ==
LOC: HO.LAB 10:59
PROVIDERS: PCP Physician Assistant; Visit Provider Physician Assistant
DX: G35 Multiple sclerosis (principal); F33.1 Major depressive disorder, recurrent, moderate; B34.9 Viral infection, unspecified; E78.2 Mixed hyperlipidemia; I10 Essential (primary) hypertension; J40 Bronchitis, not specified as acute or chronic; R09.89 Other specified symptoms and signs involving the circulatory and respiratory systems
CPT/HCPCS: 0241U; 96127; 99212

== ENCOUNTER 2025-04-28 15:46 | Outpatient (REF) | payer MEDICARE, SELFPAY ==
--- OUTSIDE RECORDS SUMMARY | 2025-04-28 15:48 | XMS_ITS | Clinical Summary ---
Author Organization [facility] Address [address] [place] [address] Care Team Providers Care Producer Arborist Manager Name Role Phone Talha Lennon Primary Care Provider [phone] Allergies Active Allergy Reactions Criticality Noted Date [...] (25 mcg total) by mouth. 0 Active [place]-3 Fatty Acids (FISH OIL PO) Take by [...] 77 02/24/2024 11:16 AM EDT Temperature 36.4 C (97.6 F) 02/24/2024 11:16 AM EDT Respiratory Rate 16 06/30/2023 1:27 PM EDT [...] 1 - PCV) 2023 Influenza Vaccine (#1) 2025 RSV Adult > 60+ Yrs or Pregn [...] Indicated COVID-19 Confirmed 10/16/2021 11/07/2021 Care Teams Producer Arborist Manager Relationship Specialty Start Date End Date Talha Lennon PA [facility] [place] [id number] PCP - General Physician Implementation Project Manager 04/25/20
--- OUTSIDE RECORDS SUMMARY | 2025-04-28 15:48 | XMS_ITS ---
Author Name [facility] Organization Unknown History of Medication Use Medication Directions Dispensed Refills Start Date End Date Stat us methylPREDNISolone sodium succinate (SOLU-Medrol) 1,000 mg in sodium chloride (NS) 0.9 % 100 mL IVPB 1,000 mg, Intravenous, Administer over 30 Minutes, Once, On Fri07/04/23 at 0930, For 1 dose 07/04/2023 3 completed amphetamine-dextroamphe tamine (ADDERALL XR) 5 MG 24 hr capsule TAKE 1 CAPSULE BY MOUTH DAILY FOR ADHD. DO NOT TAKE WITHIN 24 HOURS OF MODAFINIL 09/23/2022 active albuterol 108 (90 Base) MCG/ACT inhaler Inhale 1 puff into the lungs as needed. 11/05/2021 active meloxicam (MOBIC) 15 MG tablet Take 1 tablet (15 mg total) by mouth as needed. 11/05/2021 active amLODIPine (NORVASC) tablet 10 mg Take 1 tablet (10 mg total) by mouth daily. 02/08/2020 active cloNIDine (CATAPRES) tablet 0.1 mg Take 1 tablet (0.1 mg total) by mouth as needed. 12/09/2019 active fluticasone (VERAMYST) 27.5 MCG/SPRAY nasal spray spray or apply 50 mcg inside Nose. active Allergies Allergen Reaction Severity Comment Documented Date Source Statu s DIMETHYL FUMARATE ITCHING 05/23/2021 [facility] ac tive Problems Problem Status Onset Date Problem Type Date of Resoluti on Source Multiple sclerosis active 2021-01-18 ProblemAct [facility] HTN (hypertension) active 2020-03-24 ProblemAct [facility]
--- OUTSIDE RECORDS SUMMARY | 2025-04-28 15:49 | XMS_ITS | Clinical Summary ---
Author Organization [facility] Address [address] [place] [address] Phone Care Team Providers Care Manager Call Center Name Role Phone Talha Lennon Primary Care Provider [phone] Allergies Active Allergy Reactions Criticality Noted Date Comments Dimethyl Fumarate Itching 05/23/2021 Medications albuterol HFA (PROAIR HFA ; PROVENTIL HFA ; VENTOLIN HFA) 90 mcg/actuation inhaler Inhale 2 puffs by mouth every 6 (six) hours if needed. Active amLODIPine (NORVASC) 10 mg tablet Take by mouth 1 (one) time each day. Active cloNIDine (CATAPRES) 0.1 mg tablet Take 1 tablet (0.1 mg total) by mouth if needed for high blood pressure. Active fluticasone (VERAMYST) 27.5 mcg/actuation nasal spray Administer 2 sprays into each nostril if needed for allergies. Active gabapentin (NEURONTIN) 100 mg capsule Take 1 capsule (100 mg total) by mouth if needed. Active meloxicam (MOBIC) 15 mg tablet Take 1 tablet (15 mg total) by mouth if needed for moderate pain or mild pain. Active omega-3 acid ethyl esters (LOVAZA) 1 [...] not crush, chew, or split. 30 each 4 08/26/20 25 Active amphetamine-de xtroamphetamin e XR (ADDERALL XR) 10 mg 24 hr capsuleIndicat ions:Multiple sclerosis (CMS/HCC V24, CMS/HCC V28) Take 1 capsule (10 mg total) by mouth 1 (one) time each day in the morning. Do not crush or chew. Max Daily Amount: 10 mg 30 each 5 Active amphetamine-de xtroamphetamin e XR (ADDERALL XR) 5 mg 24 hr capsuleIndicat ions:Multiple sclerosis (CMS/HCC V24, CMS/HCC V28) Take 1 capsule (5 mg total) by mouth 1 (one) time each day. 20 capsule 5 Active Ofatumumab (Kesimpta Pen) 20 mg/0.4 mL pen injector injection Inject one pen (20 mg total) under the skin every 28 (twenty-eight) days. 1.2 mL 5 5 Active Ofatumumab (Kesimpta Pen) 20 mg/0.4 mL pen injector injection msot 1.2 mL 5 5 Active Ofatumumab (Kesimpta Pen) 20 mg/0.4 mL pen injector injection Inject one pen (20 mg total) under the skin every 28 (twenty-eight) days. 1.2 mL 5 01/29/2024 11:02 AM EDT 3 04/28/20 25 Discontinu ed(Reorder ) amphetamine-de xtroamphetamin e XR (ADDERALL XR) 10 mg 24 hr capsuleIndicat ions:Multiple sclerosis (CMS/HCC V24, CMS/HCC V28) Take 1 capsule (10 mg total) by mouth 1 (one) time each day in the morning. Do not crush or chew. Max Daily Amount: 10 mg 30 each 5 03/31/20 25 Discontinu ed(Reorder ) amphetamine-de xtroamphetamin e XR (ADDERALL XR) 5 mg 24 hr capsuleIndicat ions:Multiple sclerosis (CMS/HCC V24, CMS/HCC V28) Take 1 capsule (5 mg total) by mouth 1 (one) time each day. 20 capsule 5 03/31/20 25 Discontinu ed(Reorder ) Active Problems Problem Noted Date Diagnosed Date HTN (hypertension) 07/02/2023 Multiple sclerosis (CMS/HCC V24, CMS/HCC V28) Encounters Date Type Department Care Team Description 03/17/2025 8:39 AM EDT - 03/17/2025 11:59 PM EDT [facility] [address] [address] Encounter for screening mammogram for malignant neoplasm of breast Discharge Disposition: Home or Self Care from Last 3 Months Surgical History Surgery Date Site/Laterality Comments HYSTERECTOMY PROCEDURE:HYSTERECTOMY Medical History Medical History Date Comments MS (multiple sclerosis) (CMS /HCC V24, CMS/HCC V28) DX:MS (multiple sclerosis) ( [facility]) Family History Medical History Relation Name Comments [...] = 0.6 oz pur e alcohol) Comments No Sex and Gender Information Value Date Recorded Sex Assigned at Not on file Legal Sex Female 5:52 PM EST Gender Identity Not on file Sexual Orientation Not on file Obstetrics History Para Term AB IAB SAB Ectopic Multiple Livin g Live Births 2 Last Filed Vital Signs Vital Sign Reading Time Taken Comments Blood Pressure 136/73 01/10/2025 10:28 AM EDT Pulse 72 01/10/2025 10:28 AM EDT Temperature 36 C (96.8 F) 08/26/2024 11:24 AM EST Respiratory Rate - - Oxygen Saturation 98% 01/10/2025 10:28 AM EDT Inhaled Oxygen Concentration - - Weight 49.9 kg (110 lb) 03/17/2025 8:48 AM EDT Height 152.4 cm (5') 03/17/2025 8:48 AM EDT Body Mass Index 21.48 03/17/2025 8:48 AM EDT Plan of Treatment Upcoming Encounters Date Type Department Care Team (Late st Contact Info) Description 05/23/2025 8:00 AM EDT Appointment [facility] [address] [place] [id number] 07/12/2025 9:30 AM EDT Office Visit [facility] [address] [facility] [address] [place] [address] Lupe Michaels PA 175 [facility] [address] [place] [address] Health Maintenance Due Date Last Done Comments Pneumococcal Vaccine: 50+ Years (2 of 2 - PCV) 04/05/2021 04/05/2020 Cholesterol Screening (Lipid Panel) 09/26/2022 Colorectal Cancer Screening: Colonoscopy 09/26/2022 Depression Screening 09/26/2022 Hepatitis C Screening 09/26/2022 Medicare Annual Wellness Visit 09/26/2022 Osteoporosis Screening (Bone Density Screening) 09/26/2022 Social Influencers of Health Screening 09/26/2022 Falls Risk Assessment 2023 COVID-19 Vaccine ( season) 2024 02/09/2021, 01/17/2021 Influenza Vaccine (#1) 2025 08/22/2022 Hypertension/CHF/CAD Annual BMP Blood Test 10/25/2025 10/25/2024 Breast Cancer Screening 03/17/2027 03/17/20 25, 12/08/2023, 12/02/2022, Additional history exists DTaP,Tdap,and Td Vaccines (2 - Td or Tdap) 12/22/2028 12/22/2018 RSV Immunization Adult Patients (1 - 1-dose 75+ series) 2033 Zoster [...] age to complete this topic Meningococcal B Vaccine Aged Out No l onger eligible based on patient's age to complete this topic RSV Immunization Patients Under 20 months Aged Out No longer eligible based on patient's age to complete this topic Varicella Vaccines Aged Out No longer eligible based on patient's age to complete this topic Procedures Procedure Name Priority Date/Time Associated Diagnosis Comments MG MAMMO DIGITAL SCREENING W MACK BILAT Routine 03/17/2025 8:54 AM EDT Encounter for screening mammogram for malignant neoplasm of breast CREATININE, SERUM Routine 10/25/2024 10: 55 AM EST Multiple sclerosis (CMS/HCC V24, CMS/HCC V28) High risk medication use from Last 3 Months or Most Recently Relevant to Health Maintenance Results * MG Mammo Digital Screening w Mack bilat (03/17/2025 8:54 AM EDT) Anatomical Region Laterality Modality Breast Bilateral Mammography 03/17/2025 9:05 AM EDT Impressions 03/17/2025 9:09 AM EDT No mammographic evidence of malignancy. A negative mammogram in the presence of a clinically suspicious palpable abnormality does not preclude the possibility of malignancy or alter the indications for biopsy. PQRI CPT II 3342F Code 62249, 58037 PQRI 225 CPT II 7025F TISSUE DENSITY: The breasts are heterogeneously dense, which may obscure small masses. (BI-RADS category C) IMPRESSION: Benign. BI-RADS CATEGORY: 2 - BENIGN RECOMMENDATION: Screening bilateral mammogram is recommended in 1 year. Mammo Location: [facility], [address] [place] [id number] -------- FINAL REPORT -------- Dictated By: Adonis Olguin Dictated Date: 03/17/2025 09:05 ET Assigned Physician: Adonis Olguin Reviewed and Electronically Signed By: Adonis Olguin Signed Date: 03/17/2025 09:09 ET Workstation ID: [id number] Transcribed By: Self Edit Transcribed Date: 03/17/2025 09:05 ET Narrative 03/17/2025 9:09 AM EDT CLINICAL: The patient is a 65 years Female presenting for routine screening mammography. COMPARISON: Most recently 08/07/2024 and most remotely 04/17/2017. TECHNIQUE: Full-field digital mammography of the breasts bilaterally consisting of tomosynthesis in MLO and CC projection is performed in the [employer] 2000-D unit. Computer aided detection utilizing the iCAD system was utilized. FINDINGS: The breasts are again seen to be composed of a combination of fatty and moderately dense fibroglandular elements. A few scattered benign punctate calcifications are again noted. There is no suspicious cluster of microcalcifications, mass, or area of architectural distortion. There is no skin thickening or nipple retraction. Procedure Note Adonis Olguin MD - 03/17/2025 CLINICAL: The patient is a 65 years Female presenting for routinescreening mammography. COMPARISON: Most recently 08/07/2024 and most remotely 04/17/2017. TECHNIQUE: Full-field digital mammography of the breasts bilaterallyconsisting of tomosynthesis in MLO and CC projection is performed in the[employer] 2000-D unit. Computer aided detection utilizing the iCADsystem was utilized. FINDINGS: The breasts are again seen to be composed of a combination offatty and moderately dense fibroglandular elements. A few scatteredbenign punctate calcifications are again noted. There is no suspiciouscluster of microcalcifications, mass, or area of architectural distortion.There is no skin thickening or nipple retraction. IMPRESSION: No mammographic evidence of malignancy. A negative mammogram in the presence of a clinically suspicious palpableabnormality does not preclude the possibility of malignancy or alter theindications for biopsy. PQRI CPT II 3342F Code 82926, 79488 PQRI 225 CPT II 7025F TISSUE DENSITY: The breasts are heterogeneously dense, which may obscuresmall masses. (BI-RADS category C) IMPRESSION: Benign. BI-RADS CATEGORY: 2 - BENIGN RECOMMENDATION: Screening bilateral mammogram is recommended in 1 year. Mammo Location: [facility], [address] [place] [id number] -------- FINAL REPORT -------- Dictated By: Adonis Olguin Dictated Date: 03/17/2025 09:05 ET Assigned Physician: Adonis Olguin Reviewed and Electronically Signed By: Adonis Olguin Signed Date: 03/17/2025 09:09 ET Workstation ID: [id number] Transcribed By: Self Edit Transcribed Date: 03/17/2025 09:05 ET us Sarkis Sy MD IMG BI PROCEDURES Final Result * Creatinine (10/25/2024 10:55 AM EST) Creatinine 0.67 0.50 - 1.10 mg/dL LAB CHEMISTRY METHOD 10/25/2024 4:28 PM EST [facility] eGFR 97 >=60 mL/min/1. 73m2 LAB CHEMISTRY METHOD 10/25/2024 4:28 PM EST [facility] Comment:Calculation based on the Chronic Kidney Disease Epidemiology Collaboration (CKD-EPI) equation refit without adjustment for race. Blood Venous blood specimen / Unknown Venipuncture / Unknown 10/25/2024 10:55 AM EST 10/25/2024 10:55 AM EST Cedric Banks MD LAB BLOOD ORDERABLES Fin al Result [facility] [address] [place] [address], from Last 3 Months or Most Recently Relevant to Health Maintenance Insurance [employer] - [place] MEDICARE ADVANTAGE Care Teams Manager Call Center Relationship Specialty Start Date End Date Talha Lennon PA [facility] [place] [address] PCP - General Physician Bottoming Machine Operator 12/03/24
[2025-04-28 17:27] LABS: Appearance Urine Clear; Glucose Urine UA Negative (Negative); PH 5.5 (5.0-9.0); Specific Gravity - Urine 1.020 (1.005-1.025); UMIC TRIGGER UACC YES
[2025-04-28 17:29] LABS: Hematocrit 37.6 % (37.0-47.0); Hemoglobin 12.6 g/dl (12.0-16.0); Mean Corpuscular HGB Conc 33.5 g/dl (31.0-35.0); Mean Corpuscular Hemoglobin 29.0 pg (27.0-33.0); Mean Corpuscular Volume 86.6 fL (80.0-98.0); NRBC Abs Auto 0.000 X10*3/uL (0.0-0.012); NRBC Pct Auto 0.0 /100WBC (0.0-0.2); Platelet Count 283 X10*3/uL (160-400); Red Blood Count 4.34 X10*6/uL (4.20-5.50); White Blood Count 6.4 X10*3/uL (4.8-10.8)
[2025-04-28 17:38] LABS: UACC Culture Trigger YES
[2025-04-28 18:08] LABS: Microalbum/Creatinine Ratio Ur 20.5 ug/mg cr (<30)
[2025-04-28 18:14] LABS: Alanine Aminotransferase 21 U/L (0-31); Albumin Level 4.6 g/dL (3.5-5.0); Alkaline Phosphatase 69 U/L (39-117); Anion Gap 13 (12-20); Aspartate Amino Transferase 22 U/L (5-31); Blood Urea Nitrogen 17 mg/dL (9-16); Calcium 9.0 mg/dL (8.4-10.2); Carbon Dioxide 27 mmol/L (22-29); Chloride 101 mmol/L (96-108); Cholesterol 190 mg/dL (<200); Estimated Glomerular Filt Rate > 60; HDL Cholesterol 78 mg/dL (>40); Potassium 3.5 mmol/L (3.3-5.1); Sodium 137 mmol/L (135-145); Total Protein 6.6 g/dL (6.5-8.0); Triglycerides 50 mg/dL (<150)
== END 2025-04-28 15:47 | disposition home or self-care (01) ==
LOC: HO.WFDLDS 15:46
PROVIDERS: Visit Provider Physician Assistant
DX: I10 Essential (primary) hypertension (principal); E78.2 Mixed hyperlipidemia; R30.0 Dysuria
CPT/HCPCS: 36415; 80053; 80061; 81001; 82043; 82570; 85027; 87086

== ENCOUNTER 2025-09-27 13:35 | Outpatient (AMB) | payer MEDICARE, SELFPAY ==
--- NOTE | 2025-09-27 13:41 | MHC.PC.OV ---
Vital Signs 09/27/25 13:45 Height 5 ft Weight 111 lb 2 oz BMI 21.7 BP 112/68 Blood Pressure Location Lt brachial Position Sitting Pulse 64 Pulse Source Pulse Oximeter Temp 97.3 F Temp Source Temporal Artery Scan Pulse Oximetry (%) 98 Oxygen Delivery Method Room Air Intake Visit Reasons: annual exam Intake Note: Patient is here today for a physical. Therapeutic Recreation Assistant Required: No Blender Conveyor Operator: Not Required per policy Accompanied by: Self / Same As Patient Allergies bee pollen Allergy (Intermediate, Verified 09/27/25 13:52) hives, itching Seasonal Allergies Allergy (Intermediate, Verified 09/27/25 13:52) Itchy Eyes lisinopril Adverse Reaction (Intermediate, Verified 09/27/25 13:52) Cough Medication List - Last Reconciled 09/27/25 by Talha Lennon PA-C albuterol sulfate 90 mcg/actuation 2 puffs inhalation Q6H PRN amlodipine 10 mg PO DAILY baclofen 10 mg PO BEDTIME 30 days bupropion HCl SR 100 mg PO DAILY 60 days cholecalciferol (vitamin D3) 25 mcg PO DAILY clonidine HCl 0.1 mg PO BID PRN dextroamphetamine-amphetamine 10 mg ER PO QAM dextroamphetamine-amphetamine 5 mg ER 1 cap PO DAILY diphenhydramine HCl (Benadryl Allergy) 50 mg (2 x 25 mg) PO Q6H PRN 10 days epinephrine (EpiPen 2-Sherman) 0.3 mg (0.3 mL) IM Q10M PRN 30 days fluoxetine 40 mg PO DAILY 90 days gabapentin 100 mg PO TID PRN meloxicam 15 mg PO DAILY 90 days ofatumumab (Kesimpta Pen) 20 mg subcut QMONTH omega 9-uwn-clh-fish oil 100-160-1,000 mg 1 cap PO DAILY simvastatin 10 mg PO DAILY 90 days trazodone 100 mg PO DAILY 90 days Tobacco use date assessed: 09/27/25 Fall risk assessment: No Falls in past year Last assessed Fall Risk: 09/27/25 Dental Screening Dental Screen Date: 12/06/24 HPI annual exam HPI Details Sana is a 65-year-old female here today for routine annual physical. Patient has a past medical history significant for hypertension, vitamin-D deficiency, anxiety and depression. Concerns--> She reports a chronic, 10-year history of a sensation of a blocked ear, which comes and goes. She describes feeling as if she is in a glass container, with an associated off-balance sensation that affects her gait and how she talks. She also experiences persistent rhinorrhea, which is present year-round but varies in severity. A visit to an urgent care center suggested eustachian tube dysfunction and a deviated nasal septum. Previous evaluation by an cook fry, Dr. Gallegos, involved a series of tests which showed multiple allergies but did not resolve her ear symptoms. She has tried Zyrtec, which elevated her blood pressure, and uses a nasal spray, which has provided some benefit. . Hypertension:? Blood pressure today in office acceptable.? She reports that home blood pressures have been stable.? She continues on amlodipine 10 mg with good effect. .. Major depressive disorder: She reports her depression has been stable, continues on fluoxetine 40 and Wellbutrin which has been a good combination for her.. ADD: Patient now seeing a psychiatrist and her Adderall was increased to 10 mg recently.. She reports good focus and attention on job detail tasks with stimulant ADHD medication. . MS:? Patient continues to follow a neurologist at [facility] for her MS.? She is on MS stroke likely causing her leukopenia. Mammogram:? ( [facility]) which was normal Colonoscopy:? Done in 2023- normal repeat 10 years. Vaccines:? Up-to-date with COVID, p tetanus and shingles vaccines, needs PCV- 20 [facility] Medical History Tubular adenoma of colon Bronchitis Bleb, lung Osteoarthritis Anxiety Depression ADD (attention deficit disorder) Elevated cholesterol HTN (hypertension) Multiple sclerosis Surgical History Hx of hand surgery Hx of hysterectomy H/O colonoscopy History of total knee replacement (TKR) History of cosmetic surgery History of torn meniscus of right knee History of wisdom tooth extraction History of tonsillectomy Family History Father CAD (coronary artery disease) Mother Diabetes Hypertension Cancer Brother Multiple sclerosis Social History (Updated 09/27/25 @ 13:59 by Talha Lennon PA-C) Housing: House Alcohol intake: current Alcohol intake frequency: a few times a month Alcohol type: beer Comment: counts correct Patient Tobacco Use Status: Former Tobacco user Tobacco use type: Cigarette e-Cigarette/Vaping Use: Never Used Second Hand Smoke Exposure: Yes service: No Current occupational status: employed Current occupation: [employer]. Current occupational exposures/hazards: No Cognitive needs: No Hearing needs: No Vision needs: Yes (glasses ) Questionnaire PHQ-9 Over the last 2 weeks, how often have you been bothered by any of the following problems? 1. Little interest or pleasure in doing things: not at all 2. Feeling down, depressed, or hopeless: not at all 3. Trouble falling or staying asleep, or sleeping too much: not at all 4. Feeling tired or having little energy: several days 5. Poor appetite or overeating: not at all 6. Feeling bad about yourself - or that you are a failure or have let yourself or your family down: not at all 7. Trouble concentrating on things, such as reading the newspaper or watching television: not at all 8. Moving or speaking so slowly that other people could have noticed. Or the opposite - being so fidgety or restless that you have been moving around a lot more than usual: not at all 9. Thoughts that you would be better off or of hurting yourself in some way: not at all Total score: 1 Depression Screening Interpretation: Positive Depression Screening Done: Yes Source: Developed by Drs. Sarkis Guerrero, Dalila Rashid, Wayne Diehl and colleagues, with an educational ivory from [employer]. Thrive Questionnaire Date Thrive assessed: 12/06/24 I am a: Patient What is your living situation today?: I have a steady place to live Within the past 12 months, did the food you bought not last and you didn't have the money to get more?: Never true Within the past 12 months, did you worry whether your food would run out before you got money to buy more?: Never true Do you have trouble paying for medicines?: No Do you have trouble getting transportation to medical appointments?: No Do you have trouble paying your heating and electricity bill?: No Do you have trouble taking care of your child, family member or friend?: No Do you have trouble with day-to-day activities such as bathing, preparing meals, shopping, managing finances, etc.?: Yes Are you currently unemployed and looking for a job?: No Are you interested in more education?: No Please select the resources that you would like help with: None Currently or been in a relationship where the following occur: No concerns reported THRIVE Score: 0 AUDIT C Alcohol Use Questionnaire (AUDIT-C) 1. How often do you have a drink containing alcohol?: Monthly or less 2. How many drinks containing alcohol do you have on a typical day when you are drinking?: 1 or 2 Total Score: 1 RED-7 AMB Questionnaire RED-7 Date RED - 7 assessed: 12/06/24 Source: Developed by Drs. Sarkis Guerrero, Dalila Rashid, Wayne Diehl and colleagues, with an educational ivory from [employer]. Review of Systems Const Denies body aches, Denies chills, Denies excessive sweating, Denies fatigue, Denies fever(s) and Denies headache(s) Eyes Denies blurry vision ENT Denies dysphagia, Denies vertigo, Denies dizziness, Denies headache(s), Denies hearing loss and Denies tinnitus Card Denies chest pain, Denies chest pain with activity, Denies syncope, Denies irregular heart rhythm and Denies dyspnea Resp Denies chest congestion, Denies cough, Denies hemoptysis, Denies dyspnea and Denies wheezing GI Denies abdominal pain, Denies melena, Denies hematochezia, Denies coffee ground emesis, Denies dysphagia, Denies diarrhea, Denies nausea and Denies vomiting Denies urinary frequency, Denies dysuria, Denies urinary hesitancy and Denies urinary urgency Musc Denies arthralgias, Denies limited range of motion, Denies muscle cramps and Denies muscle weakness Skin/Breast Denies rash and Denies skin ulcer Neuro Denies Abnormal speech present, Denies confusion, Denies vertigo, Denies dizziness, Denies syncope, Denies headache(s), Denies memory loss and Denies seizure-like activity Psych Denies anxiety, Denies confusion, Denies depression, Denies memory loss, Denies panic attacks and Denies paranoia Endo Denies excessive sweating, Denies fatigue, Denies flushing, Denies polydipsia and Denies polyuria Aller/Immun Denies wheezing Physical exam (Primary Care) Vital Signs: Last Vital Signs Temp 97.3 F 09/27/25 13:45 Pulse 64 09/27/25 13:45 BP 112/68 09/27/25 13:45 Pulse Ox 98 09/27/25 13:45 Oxygen Delivery Method Room Air 09/27/25 13:45 BMI result Body Mass Index 21.7 Tobacco/Smoking Status: Tobacco use Status Tobacco use date assessed 09/27/25 09/27/25 13:50 Patient Tobacco Use Status Former Tobacco user 09/27/25 13:59 Tobacco use type Cigarette 09/27/25 13:59 e-Cigarette/Vaping Use Never Used 09/27/25 13:59 PHQ-9: PHQ-9 Score PHQ-9: Total score 1 09/27/25 13:57 Depression Screening Interpretation: Positive Thrive Assessment: Date of Thrive Assessment Date Thrive assessed 12/06/24 09/27/25 13:43 Currently or been in a relationship where the following occur: No concerns reported Const General: cooperative, comfortable, no acute distress, alert and awake; No confusion Orientation/consciousness: oriented to person, oriented to place, patient oriented x3 and No confusion HENMT Head: Yes normocephalic Ears: external ears normal and TM's normal bilaterally Face and sinus: No sinus tenderness Mouth: Normal oral and palatal mucosa present and tongue normal Teeth and gingiva: dentition normal and gingiva normal Throat: Yes posterior oropharynx normal, Yes tonsils normal and Yes uvula midline Eyes Conjunctivae: conjunctivae normal Sclerae: sclerae normal Pupils: Equal, round and reactive pupils present EOM: EOMs intact bilaterally Direct Ophthalmoscopy: No no photophobia Neck Neck: Yes no lymphadenopathy, No tender and Yes no JVD Thyroid: Thyroid normal Carotids: no bruits Chest Chest palpation & inspection: no tenderness Resp Effort & Inspection: normal respiratory effort, no audible wheezes, not labored and no stridor Auscultation: no crackles, no rales, no rhonchi and no wheezes Cardio Jugular venous distension: no JVD Rate: regular rate, not bradycardic and not tachycardic Rhythm: regular rhythm Bruits: no carotid bruits Peripheral pulses: Peripheral pulses 2+ throughout GI Inspection: Yes normal to inspection, No abdominal wall ecchymosis and No visible herniation Palpation (GI): Soft to palpation, nontender, no guarding, not rigid and No hepatosplenomegaly present Auscultation: normoactive bowel sounds General: Yes no CVA tenderness Back/Spine/Pelvis Back: no CVA tenderness and No back tenderness Cervical Spine: cervical ROM normal Thoracic/Lumbar Spine: thoracic and lumbar spine normal to inspection, straight leg raise negative bilaterally, No thoraco-lumbar ROM limited and No lumbar spinal tenderness Skin Lesions: no lesions Rashes: no rashes Wounds: no wounds Neuro General: oriented to person, oriented to place, patient oriented x3, CN's II-XI intact bilaterally and No confusion Cranial nerves: Yes Equal, round and reactive pupils present and Yes Normal accommodation reflex present Cognition (Neuro): normal cognition Speech: No Abnormal speech present Gait exam (Neuro): Normal gait present Motor exam (neuro): 5/5 motor strength present throughout Extrem Right upper extremity: full ROM; no cyanosis Left upper extremity: full ROM; no cyanosis Right lower extremity: no edema Left lower extremity: no edema Psych Appearance: grossly normal Mental Status: mental status grossly normal Affect: normal affect Attitude: cooperative Thought process: Normal thought process present Immunizations pneumoc 20-gracie conj-dip cr(PF) 0.5 mL IM syringe Performing Provider: Talha Lennon PA-C [facility] Administered by: Carolina Maldonado RN on 09/27/25 14:37 Dose Route Admin Location Dispensed Lot Number Expiration Date [facility] [employer] Equipment Mechanic 0.5 mL IM Right Deltoid 0.5 mL [id number] 07/19/26 [id number] [employer]toPher[employer]/Betable Total Dispensed Waste 0.5 mL 0 % VIS Given Date VIS Provided VIS Publication Date 09/27/25 Single Vaccine 25 Eligibility Eligibility Date Funding Source Not [facility] Eligible 09/27/25 Private Coding Level of Care Code Est Pt Prev Care >65y(06489) Diagnoses Annual physical exam Z00.00 Eustachian tube disorder H69.90 Multiple sclerosis G35 MDD (major depressive disorder), recurrent episode, moderate F33.1 Mixed hyperlipidemia E78.2 Hyperlipidemia type: mixed hyperlipidemia Essential hypertension I10 Hypertension type: essential hypertension Gastroesophageal reflux disease without esophagitis K21.9 Esophagitis presence: without esophagitis Assessment & Plan Assessment & Plan (1) Annual physical exam: Code(s): Z00.00 - Encounter for general adult medical examination without abnormal findings Category: Medical Plan: As per HPI (2) Eustachian tube disorder: Code(s): H69.90 - Unspecified Eustachian tube disorder, unspecified ear Category: Medical Plan: For management of chronic ear blockage, rhinorrhea, and presumed eustachian tube dysfunction, a new allergy medication, montelukast (Singulair), will be prescribed to see if it helps with her symptoms, which did not respond to Zyrtec. A refill for her nasal spray will be provided, as it offers some relief. An ENT referral will be placed for further evaluation of eustachian tube dysfunction and possible surgical management, such as tube placement. The potential connection between her symptoms and gastroesophageal reflux disease (GERD) or multiple sclerosis (MS) was discussed as possible contributing factors. Additionally, the option of vestibular therapy was mentioned to address her balance issues. (3) Multiple sclerosis: Code(s): G35 - Multiple sclerosis Category: Medical Plan: Continues on MS treatment, continues to follow neurologist. Recent MRI brain without any significant demyelination She does have some fatigue and muscle pain at times. (4) MDD (major depressive disorder), recurrent episode, moderate: Code(s): F33.1 - Major depressive disorder, recurrent, moderate Category: Medical Plan: Patient is followed by a psychiatrist and a mental health therapist. She feels her mental health is fairly stable. Her Adderall was increased recently to help her with her attention and focus in her energy. (5) HLD (hyperlipidemia): Code(s): E78.5 - Hyperlipidemia, unspecified Category: Medical Qualifiers: Hyperlipidemia type: mixed hyperlipidemia Qualified Code(s): E78.2 - Mixed hyperlipidemia Plan: Patient's most recent lipid panel showing much improved total cholesterol and LDL, she continues on simvastatin 10 mg without any notable side effect. Goal LDL to be below 130 (6) HTN (hypertension): Code(s): I10 - Essential (primary) hypertension Category: Medical Qualifiers: Hypertension type: essential hypertension Qualified Code(s): I10 - Essential (primary) hypertension Plan: Patient's blood pressure acceptable today in office. Will continue her current dose of antihypertensive medication with goal blood pressure to be below 140/90 (7) GERD (gastroesophageal reflux disease): Code(s): K21.9 - Gastro-esophageal reflux disease without esophagitis Category: Medical Qualifiers: Esophagitis presence: without esophagitis Qualified Code(s): K21.9 - Gastro-esophageal reflux disease without esophagitis Plan: In reading literature it could be that she is having gastric reflux at night causing her ear issue. Will supply patient with a few week trial of omeprazole to help reduce gastric reflux Orders: Orders Microalbumin, Random (w Creat) Today I10 - Essential (primary) hypertension Complete Blood Count no Diff Today I10 - Essential (primary) hypertension Comprehensive [place]. Panel Fast Today I10 - Essential (primary) hypertension Pneumococcal 20 Immunization Today Z23 - Encounter for immunization Lipid Panel Today E78.2 - Mixed hyperlipidemia Medications: New fluticasone propionate 50 mcg/actuation (Flonase Allergy Relief) administer into each nostril 1 spray intranasal BID 16 grams 1RF 4 weeks J30.9 - Allergic rhinitis, unspecified omeprazole 20 mg PO DAILY 21 caps 0RF 21 days K21.9 - Gastro-esophageal reflux disease without esophagitis montelukast 10 mg PO DAILY 30 tabs 2RF 30 days H69.90 - Unspecified Eustachian tube disorder, unspecified ear
[2025-09-27 13:45] VITALS: BP 112/68; PULSE 64; TEMP 36.3; O2SAT 98; BMI 21.7
--- OUTSIDE RECORDS SUMMARY | 2025-09-27 19:10 | XMS_ITS | Clinical Summary ---
Author Organization [facility] Prior to 03/19/25 Address [address] [place] [address] Care Team Providers Care Manufacturing Development Engineer Name Role Phone Talha Lennon Primary Care [...] (25 mcg total) by mouth. 0 Active [place]-3 Fatty Acids (FISH OIL PO) Take by [...] Indicated COVID-19 Confirmed 10/16/2021 11/07/2021 Care Teams Manufacturing Development Engineer Relationship Specialty Start Date End Date Talha Lennon PA [address] [place] [address] [phone] PCP - General Physician Medical Service Technician 04/25/20
--- OUTSIDE RECORDS SUMMARY | 2025-09-27 19:10 | XMS_ITS | Clinical Summary ---
Author Organization 175 [facility] Address [address] [place] [address] Phone Care Team Providers Care Production Assistant Name Role Phone Talha Lennon Primary Care Provider [phone] Allergies Active Allergy Reactions Criticality Noted Date [...] each nostril if needed for allergies. Active meloxicam (MOBIC) 15 mg tablet Take 1 tablet (15 mg total) by mouth if needed for moderate pain or mild pain. Active traZODone (DESYREL) 100 mg tablet Take 1 tablet (100 mg total) by mouth at bedtime. Active turmeric 400 mg capsule Take by mouth. Activ e OMEGA-3 FATTY ACIDS ORAL Take by mouth. Acti ve albuterol HFA (PROAIR HFA ; PROVENTIL HFA ; VENTOLIN HFA) 90 mcg/actuation inhaler Inhale 1 puff into the lungs as needed. 2 Active cholecalciferol (VITAMIN D-3) 25 mcg (1,000 unit) tablet Take 1 tablet by mouth. Active Ofatumumab (Kesimpta Pen) 20 mg/0.4 mL pen injector injection Inject one pen (20 mg total) under the skin every 28 (twenty-eight) days. 1.2 mL 5 09/07/2025 12:22 PM EST Active gabapentin (NEURONTIN) 100 mg capsule Take 1 capsule (100 mg total) by mouth if needed (Take 1 tabet (100mg) as needed). 30 capsule 2 5 Active buPROPion SR (WELLBUTRIN SR) 100 mg 12 hr tablet Take 1 tablet (100 mg total) by mouth 1 (one) time each day. 5 Active FLUoxetine (PROzac) 40 mg capsule Take 1 capsule (40 mg total) by mouth 1 (one) time each day. 5 Active simvastatin (ZOCOR) 5 mg tablet Take 1 tablet (5 mg total) by mouth at bedtime. Active aspirin 81 mg EC tablet Take 1 tablet (81 mg total) by mouth 2 (two) times a day. 5 Active baclofen (LIORESAL) 10 mg tablet 5 Active estradioL (ESTRACE) 0.01 % (0.1 mg/gram) vaginal cream INSERT 1 GRAM VAGINALLY 2 TIMES PER WEEK 5 Active ibuprofen (ADVIL,MOTRIN) 800 mg tablet PLEASE SEE ATTACHED FOR DETAILED DIRECTIONS 5 Active amphetamine-dex troamphetamine XR (ADDERALL XR) 10 mg 24 hr capsuleIndicati ons:Multiple sclerosis Take 1 capsule (10 mg total) by mouth 1 (one) time each day in the morning. Do not crush or chew. Max Daily Amount: 10 mg 30 each 5 Active amphetamine-dex troamphetamine XR (ADDERALL XR) 5 mg 24 hr capsuleIndicati ons:Multiple sclerosis Take 1 capsule (5 mg total) by mouth 1 (one) time each day. 20 capsule 5 Active Active Problems Problem Noted Date Diagnosed Date Cerebral meningioma 07/19/2025 Assessment & Plan (07/21/2025 5:10 PM EDT): Patient was referred for incidental mass noted on brain imaging, has history of MS diagnosed in 1995 at 23 years old. She has history of double vision x 8 years, her eye doctor thinks it could be related to her MS, she states Adela WARNER does not think it is related to the MS. She wears glasses with prisms to help with the double vision, she sees double objects in particular faces and cars, or watching TV, without her glasses on. Symptoms are worse at night. Other than that she has no specific complaints, weakness, headaches. However she did mention that 3 weeks ago she had 1 week where she had a headache overnight, a sharp pain to her right eye, took Advil and Tylenol and symptoms resolved. She was noted to have left cyst in the maxillary sinus on imaging, also has seen ENT Dr. Mei [facility] in the past and diagnosed with left eustachian tube issues, has issues with the left ear, plans to follow-up with ENT again. Notes sinus congestion. Patient had brain MRI without contrast 01/24/25 [facility] that showed stable small right extra-axial mass arising from the right posterior falx, likely meningioma (has been measuring approximately 8 mm for many years). I reviewed imaging with patient on the computer. We went year by year looking back to 2010, I went all the way back to 2005, and on contrasted imaging you can see the small meningioma. It has been stable >10 years, is not well-seen on the brain imaging without contrast, is not mentioned in all reports, however mostly picked up on contrasted imaging, I measured the small mass in 2005 imaging and it measured approximately 6.8 mm, has not grown much over the years. Ms. Bose has small overall stable right posterior parafalcine mass, likely meningioma, we looked back about 20 years without significant change, no surrounding edema in the brain. I do not think Dr. Gacria will feel this needs any additional follow-up, however patient gets regularly scheduled imaging for her MS, we can follow the mass and if there is any growth I asked patient to call for appointment. I will review her case with Dr. Garcia, see if she has any additional recommendations. All questions answered. I asked her to call with any concerns or questions. ADDENDUM 07/21/25: Dr. Garcia reviewed patient's Brain MRI 2023, 2024, patient had minimal roll changer approximately 20 years in the small right posterior parafalcine mass, no surrounding edema, we looked at the sagittal imaging and the small meningioma is more parietal lesion above occipital lobe, should not be affecting her vision. Dr. Garcia states we would typically follow this with a 5-year brain MRI, however patient gets regularly scheduled imaging for her MS, we can follow-up on her imaging ordered by neurology. HTN (hypertension) 07/02/2023 Multiple sclerosis 07/02/2023 Encounters Date Type Department Care Team Description 07/19/2025 11:30 AM EDT Consult Neurosurgery [place] [facility] [address] [place] [address] Eveline Tello PA Cerebral meningioma (CMS/HCC V24, CMS/HCC V28) (Primary Dx) 07/12/2025 9:30 AM EDT Office Visit [facility] [address] [place] [address] Lupe Michaels PA Multiple sclerosis (CMS/HCC V24, CMS/HCC V28) (Primary Dx); Meningioma (CMS/HCC V24, CMS/HCC V28) from Last 3 Months Surgical History Surgery Date Site/Laterality Comments HYSTERECTOMY HERNIA REPAIR 10/20/2022 - 10/19/2023 TOTAL KNEE ARTHROPLASTY 10/20/2011 - 10/19/2012 Right TOE FUSION 01/18/2025 - 02/16/2025 Left Big Toe OTHER SURGICAL HISTORY surgery on thumb Medical History Medical History Date Comments High blood pressure Anxiety MS (multiple sclerosis) Family History Medical History Relation Name Comments Multiple sclerosis Brother Breast cancer Mother Hypertension Mother Kidney disease Mother Multiple sclerosis Niece Relation Name Status Comments Brother Mother Niece Social History Tobacco Use Types Packs/Day Years Used Date Smoking Tobacco: Former Smokeless Tobacco: Former Quit: 1987 Comments:Smoked 1972 to 1987 Alcohol Use Standard Drinks/Week Comments Yes 0 [...] Sign Reading Time Taken Comments Blood Pressure 125/73 07/12/2025 9:28 AM EDT Pulse 71 07/12/2025 9:28 AM EDT Temperature 36 C (96.8 F) 08/26/2024 11:24 AM EST Respiratory Rate - - Oxygen Saturation 99% 07/12/2025 9:28 AM EDT Inhaled Oxygen Concentration - - Weight 49.9 kg (110 lb) 07/19/2025 11:35 AM EDT Height 152.4 cm (5') 07/19/2025 11:35 AM EDT Body Mass Index 21.48 07/19/2025 11:35 AM EDT Plan of Treatment Upcoming Encounters Date Type Department Care Team (Late st Contact Info) Description 11/11/2025 9:30 AM EST Office Visit [facility] [address] [place] [address] Lupe Michaels PA [address] [place] [phone] Health Maintenance Due Date Last Done Comments Colorectal Cancer Screening: Colonoscopy 1960 Pneumococcal Vaccine: 50+ Years (2 of 2 - PCV) 04/05/2021 04/05/2020 Cholesterol Screening (Lipid Panel) 09/26/2022 Hepatitis C Screening 09/26/2022 Medicare Annual Wellness Visit 09/26/2022 Social Influencers of Health Screening 09/26/2022 Falls Risk Assessment 2023 Depression Screening 10/20/2024 COVID-19 Vaccine ( season) 2025 02/09/2021, 01/17/2021 Influenza Vaccine (#1) 2025 Hypertension/CHF/CAD Annual BMP Blood Test 04/28/2026 04/28/2025, 10/25/2024 Breast Cancer Screening 03/17/2027 03/17/20, 12/08/2023, 12/02/2022, Additional history exists DTaP,Tdap,and Td Vaccines (2 - Td or Tdap) 12/22/2028 12/22/2018 RSV Immunization Adult Patients (1 - 1-dose 75+ series) 2033 Osteoporosis Screening (Bone Density Screening) 05/23/2035 05/23/2025 Zoster Vaccines Completed 04/02/2019, 050 11/2018, 11/25/2018 HIB Vaccines Aged Out No [...] Procedure Name Priority Date/Time Associated Diagnosis Comments BD BONE DENSITY DXA AXIAL SKELETON Routine 05/23/2025 8:20 AM EDT Other specified disorders of bone density and structure, multiple sites CREATININE, SERUM Routine 04/28/2025 3:0 8 PM EDT Multiple sclerosis (CMS/HCC V24, CMS/HCC V28) High risk medication use MG MAMMO DIGITAL SCREENING W MACK BILAT Routine 03/17/2025 8:54 AM EDT Encounter for screening mammogram for malignant neoplasm of breast from Last 3 Months or Most Recently Relevant to Health Maintenance Results * BD Bone Density DXA Axial Skeleton (05/23/2025 8:20 AM EDT) Anatomical Region Laterality Modality Wrist, Hip, L-spine Bone Densito metry 05/24/2025 11:3 8 AM EDT Impressions 05/24/2025 11:39 AM EDT 1. Osteoporosis. 2. FRAX analysis yields a 10-year probability of major osteoporotic fracture of 39.6% and a 10-year probability of hip fracture of 6.4%. Code 75811 -------- FINAL REPORT -------- Dictated By: Adonis Olguin Dictated Date: 05/24/2025 11:38 ET Assigned Physician: Adonis Olguin Reviewed and Electronically Signed By: Adonis Olguin Signed Date: 05/24/2025 11:39 ET Workstation ID: [id number] Transcribed By: Self Edit Transcribed Date: 05/24/2025 11:38 ET Narrative 05/24/2025 11:39 AM EDT HISTORY: The patient is a 65-year-old postmenopausal female on chronic glucocorticoid therapy, with clinical concern for metabolic bone disease. FINDINGS: Dual energy x-ray absorptiometry of the lumbar spine and femurs is performed. The mean bone mineral density at L1-3 is 0.864 gm/cm2 which is 74% of that of young normals and 94% of that of age matched controls. This yields a T-score of -2.6 and a Z-score of -0.5 which is diagnostic of osteoporosis. The mean bone mineral density of the femurs bilaterally is 0.741 gm/cm2 which is 74% of that of young normals and 93% of that of age matched controls. This yields a T-score of -2.1 and a Z-score of -0.5 which is diagnostic of osteopenia. Procedure Note Adonis Olguin MD - 05/24/2025 HISTORY: The patient is a 65-year-old postmenopausal female on chronicglucocorticoid therapy, with clinical concern for metabolic bonedisease. FINDINGS: Dual energy x-ray absorptiometry of the lumbar spine and femursis performed. The mean bone mineral density at L1-3 is 0.864 gm/cm2 whichis 74% of that of young normals and 94% of that of age matched controls.This yields a T-score of -2.6 and a Z-score of -0.5 which is diagnostic ofosteoporosis. The mean bone mineral density of the femurs bilaterally is 0.741 gm/pj1mgaga is 74% of that of young normals and 93% of that of age matchedcontrols. This yields a T-score of -2.1 and a Z-score of -0.5 which isdiagnostic of osteopenia. IMPRESSION: 1. Osteoporosis. 2. FRAX analysis yields a 10-year probability of major osteoporoticfracture of 39.6% and a 10-year probability of hip fracture of 6.4%. Code 18578 -------- FINAL REPORT -------- Dictated By: Adonis Olguin Dictated Date: 05/24/2025 11:38 ET Assigned Physician: Adonis Olguin Reviewed and Electronically Signed By: Adonis Olguin Signed Date: 05/24/2025 11:39 ET Workstation ID: [id number] Transcribed By: Self Edit Transcribed Date: 05/24/2025 11:38 ET Sarkis Sy MD IMG DXA PROCEDURES Final Result * Creatinine (04/28/2025 3:08 PM EDT) Creatinine 0.76 0.50 - 1.10 mg/dL LAB CHEMISTRY METHOD 04/28/2025 7:44 PM EDT [facility] eGFR 86 >=60 mL/min/1. 73m2 LAB CHEMISTRY METHOD 04/28/2025 7:44 PM EDT [facility] Comment:Calculation based on the Chronic Kidney Disease Epidemiology Collaboration (CKD-EPI) equation refit without adjustment for race. Blood Venous blood specimen / Unknown Venipuncture / Unknown 04/28/2025 3:08 PM EDT 04/28/2025 3:09 PM EDT Cedric Banks MD LAB BLOOD ORDERABLES Fin al Result [facility] [address] [place] [address], * MG Mammo Digital Screening w Mack bilat (03/17/2025 8:54 AM EDT) Anatomical Region Laterality Modality Breast Bilateral Mammography 03/17/2025 9:05 AM EDT Impressions 03/17/2025 9:09 AM EDT No mammographic evidence of malignancy. A negative mammogram in the presence of a clinically suspicious palpable abnormality does not preclude the possibility of malignancy or alter the indications for biopsy. PQRI CPT II 3342F Code 66072, 74685 PQRI 225 CPT II 7025F TISSUE DENSITY: The breasts are heterogeneously dense, which may obscure small masses. (BI-RADS category C) IMPRESSION: Benign. BI-RADS CATEGORY: 2 - BENIGN RECOMMENDATION: Screening bilateral mammogram is recommended in 1 year. Mammo Location: [facility], [address] [place] [id number] -------- FINAL REPORT -------- Dictated By: Adonis Olguin Dictated Date: 03/17/2025 09:05 ET Assigned Physician: Adonis Olguin Reviewed and Electronically Signed By: Adonis Olguin Signed Date: 03/17/2025 09:09 ET Workstation ID: [id number] Transcribed By: Self Edit Transcribed Date: 03/17/2025 09:05 ET Narrative 03/17/2025 9:09 AM EDT CLINICAL: The patient is a 65 years Female presenting for routine screening mammography. COMPARISON: Most recently 08/07/2024 and most remotely 04/17/2017. TECHNIQUE: Full-field digital mammography of the breasts bilaterally consisting of tomosynthesis in MLO and CC projection is performed in the Pro Stream + 2000-D unit. Computer aided detection utilizing the [...] MLO and CC projection is performed in thePro Stream + 2000-D unit. Computer aided detection utilizing the [...] for biopsy. PQRI CPT II 3342F Code 91912, 24933 PQRI 225 CPT II 7025F TISSUE DENSITY: The breasts are heterogeneously dense, which may obscuresmall masses. (BI-RADS category C) IMPRESSION: Benign. BI-RADS CATEGORY: 2 - BENIGN RECOMMENDATION: Screening bilateral mammogram is recommended in 1 year. Mammo Location: [facility], [address] [place] [address] -------- FINAL REPORT -------- Dictated By: Adonis Olguin Dictated Date: 03/17/2025 09:05 ET Assigned Physician: Adonis Olguin Reviewed and Electronically Signed By: Adonis Olguin Signed Date: 03/17/2025 09:09 ET Workstation ID: [id number] Transcribed By: Self Edit Transcribed Date: 03/17/2025 09:05 ET Sarkis Sy MD IMG BI PROCEDURES Final Result from Last 3 Months or Most Recently Relevant to Health Maintenance Insurance [employer] - [place] MEDICARE ADVANTAGE Care Teams Production Assistant Relationship Specialty Start Date End Date Talha Lennon PA [facility] [place] [id number] PCP - General Physician Studio Manager 12/03/24
== END 2025-09-27 14:38 | disposition home or self-care (01) ==
LOC: HO.HMCH 13:36
PROVIDERS: PCP Physician Assistant; Visit Provider Physician Assistant
DX: Z00.00 Encounter for general adult medical examination without abnormal findings (principal); H69.90 Unspecified Eustachian tube disorder, unspecified ear; G35.D Multiple sclerosis, unspecified; F33.1 Major depressive disorder, recurrent, moderate; E78.2 Mixed hyperlipidemia; I10 Essential (primary) hypertension; K21.9 Gastro-esophageal reflux disease without esophagitis; Z23 Encounter for immunization

== ENCOUNTER → 2025-09-27 13:35 | Outpatient (BNVA) | payer MEDICARE, SELFPAY | PROVIDERS: PCP Physician Assistant; Visit Provider Physician Assistant | DX: Z00.00 Encounter for general adult medical examination without abnormal findings (principal); I10 Essential (primary) hypertension; E55.9 Vitamin D deficiency, unspecified; F41.9 Anxiety disorder, unspecified; F98.8 Other specified behavioral and emotional disorders with onset usually occurring in childhood and adolescence; G35.D Multiple sclerosis, unspecified; F33.1 Major depressive disorder, recurrent, moderate; E78.2 Mixed hyperlipidemia; K21.9 Gastro-esophageal reflux disease without esophagitis; Z23 Encounter for immunization | CPT/HCPCS: 90471; 90677; 96127; 99397 ==